=== PATIENT | female | born 1955 | race Caucasian/White ===

== ENCOUNTER 2023-04-01 16:45 | Observation (INO) | payer OTHER ==
[2023-04-01] MEDS ORDERED: LEVALBUTEROL 1.25 MG/3 ML NEB ONE (17:12)
[2023-04-01 17:27] LABS: Absolute Lymphocytes (CBC) 0.5 K/uL (0.7-4.9); Hematocrit 40.9 % (36.0-45.0); Lymphocytes % 4.5 % (15.3-44.8); MPV 9.3 fL (7.6-11.3); Platelets 202 thou/uL (152-406); RBC Red Blood Cell Count 4.49 M/uL (3.86-4.86)
[2023-04-01 17:36] LABS: Protime INR 1.06
[2023-04-01 17:47] LABS: Albumin 3.1 g/dL (3.4-5.0); Bilirubin Direct 0.3 mg/dL (0-0.2); Bilirubin Total 1.3 mg/dL (0.2-1.0); Potassium 2.9 mEq/L (3.5-5.1); Protein, Total 5.8 g/dL (6.4-8.2); Troponin High Sensitivity 6.4 pg/mL (<58.9)
[2023-04-01 17:49] LABS: Blood Morphology Comment NOT SEEN (NOT SEEN); Platelet Estimate ADEQ; White Blood Cell Scan OK (OK)
--- NOTE | 2023-04-01 17:49 | RAD REPORT ---
EXAM DESCRIPTION: RAD - Chest Pa And Lat (2 Views) - 04/01/2023 5:42 pm CLINICAL HISTORY: Chest pain;COPD;Cough Chest pain. COMPARISON: CHEST SINGLE VIEW dated 11/25/2014; CHEST SINGLE VIEW dated 11/21/2014 TECHNIQUE: PA and lateral views of the chest were obtained. FINDINGS: The lungs are hyperexpanded compatible with COPD. The heart is upper limit of normal in si ze. No fracture or aggressive bony process. IMPRESSION: COPD without acute process identified. The USPSTF recommends annual screening for lung cancer with low-dose CT (LDCT) in adults aged 50 to 8 0 years who have a 20 pack-year smoking history and currently smoke or have quit within the past 15 y ears.
[2023-04-01] MEDS ORDERED: POTASSIUM 25 MEQ EFFERV TAB ONE (17:54)
[2023-04-01] MEDS ORDERED: METHYLPREDNISOLONE 125 MG INJ ONE (17:54)
[2023-04-01] MEDS ORDERED: NA CHLORIDE 0.9% 1,000 ML ONE (17:55)
[2023-04-01] MEDS ORDERED: MAGNESIUM SULFATE 1 gm IVPB 1 GM/100 ML BAG IV ONE (17:55)
[2023-04-01] MEDS ORDERED: KCL 20 MEQ/100 mL IVPB 100 ML IV ONE (17:55)
[2023-04-01 18:04] LABS: SARS-COV-2 RT PCR NEGATIVE (NEGATIVE)
--- NOTE | 2023-04-01 18:33 | RAD REPORT ---
EXAM DESCRIPTION: CT - Thorax Wo Con CLINICAL HISTORY: Chest pain r/o PNA;COPD COMPARISON: <Comparisons> FINDINGS: The lungs are emphysematous. No pulmonary nodule, mass or infiltrate. No pleural thickenin g or pleural effusion. No pneumothorax. No axillary, mediastinal or hilar adenopathy. No concerning bony finding. Cholecystectomy clips. All CT scans are performed using dose optimization technique as appropriate and may include automated exposure control or mA/KV adjustment according to patient size. IMPRESSION: Mild COPD.
--- NOTE | 2023-04-01 18:40 | ER ---
Nurse's Notes [facility] Name: Gisell Man Age: 67 yrs Sex: Female : 1955 Arrival Date: 04/01/2023 Time: 16:45 Bed 13 Private MD: Diagnosis: COPD/ Chronic obstructive pulmonary disease with (acute) exacerbation;Hypokalemia;Hypo-osmolality and hyponatremia Presentation: 04/01 16:49 Chief complaint: EMS states: "toned out for pain between shoulder blades. Gave 1 g of mb9 Ofirmev via 22 g to left FA.". Coronavirus screen: Vaccine status: Patient reports being unvaccinated. Ebola Screen: No symptoms or risks identified at this time. Initial Sepsis Screen: Does the patient meet any 2 criteria? No. Patient's initial sepsis screen is negative. Does the patient have a suspected source of infection? No. Patient's initial sepsis screen is negative. Risk Assessment: Do you want to hurt yourself or someone else? Patient reports no desire to harm self or others. Onset of symptoms was April 01, 2023. 16:49 Method Of Arrival: EMS: [facility] mb9 16:49 Acuity: TOMMY 3 mb9 Triage Assessment: 16:52 General: Appears in no apparent distress. Behavior is cooperative. Pain: Complains of mb9 pain in back. EENT: No signs and/or symptoms were reported regarding the EENT system. Neuro: Hall Agitation-Sedation Scale (RASS): 0 - Alert and Calm Level of Consciousness is awake, alert, obeys commands, Oriented to person, place, time, situation, Appropriate for age. Cardiovascular: Patient's skin is warm and dry. Respiratory: Airway is patent Respiratory effort is even, unlabored, Respiratory pattern is regular, symmetrical, Breath sounds with wheezes bilaterally. GI: Abdomen is flat, non-distended, Bowel sounds present X 4 quads. : No signs and/or symptoms were reported regarding the genitourinary system. Derm: Skin is pink, warm \\T\\ dry. Musculoskeletal: Range of motion: intact in all extremities. Historical: - Allergies: 16:48 Codeine; mb9 16:48 Iodine; mb9 16:48 Albuterol; mb9 - Home Meds: 17:05 prednisone 10 mg Oral tablet 3 times per day [Active]; [place] Thyroid 60 mg Oral tablet sb4 daily [Active]; - PMHx: 17:04 Chronic obstructive lung disease; Hypothyroidism; sb4 17:25 bilateral breast cancer; Endometriosis of vagina; mb9 - PSHx: 17:25 Cholecystectomy; Tonsillectomy; mb9 - Immunization history:: Adult Immunizations up to date. - Social history:: Smoking status: Patient/guardian denies using tobacco. Screenin:51 [facility] ED Fall Risk Assessment (Adult) History of falling in the last 3 months, mb9 including since admission No falls in past 3 months (0 pts) Confusion or Disorientation No (0 pts) Intoxicated or Sedated No (0 pts) Impaired Gait No (0 pts) Mobility Assist Device Used No (0 pt) Altered Elimination No (0 pt) Score/Fall Risk Level 0 - 2 = Low Risk Oriented to surroundings, Maintained a safe environment, Educated pt \\T\\ family on fall prevention, incl call for assistance when getting out of bed. Abuse screen: Denies threats or abuse. Nutritional screening: No deficits noted. Tuberculosis screening: No symptoms or risk factors identified. Assessment: 17:24 Reassessment: see triage assessment. mb9 18:11 Reassessment: No changes from previously documented assessment. Patient and/or family mb9 updated on plan of care and expected duration. Pain level reassessed. Patient is alert, oriented x 3, equal unlabored respirations, skin warm/dry/pink. 19:13 Reassessment: Patient appears in no apparent distress at this time. No changes from km8 previously documented assessment. Patient and/or family updated on plan of care and expected duration. Pain level reassessed. Patient is alert, oriented x 3, equal unlabored respirations, skin warm/dry/pink. General: Appears in no apparent distress. comfortable, Behavior is calm, cooperative, appropriate for age. Neuro: Level of Consciousness is awake, alert, obeys commands, Oriented to person, place, time, situation. Cardiovascular: Capillary refill < 3 seconds Patient's skin is warm and dry. Respiratory: Airway is patent Respiratory effort is even, labored, Respiratory pattern is regular, symmetrical. 20:18 Reassessment: Patient appears in no apparent distress at this time. No changes from km8 previously documented assessment. Patient and/or family updated on plan of care and expected duration. Pain level reassessed. Patient is alert, oriented x 3, equal unlabored respirations, skin warm/dry/pink. 21:00 Reassessment: Patient appears in no apparent distress at this time. No changes from km8 previously documented assessment. Patient and/or family updated on plan of care and expected duration. Pain level reassessed. Patient is alert, oriented x 3, equal unlabored respirations, skin warm/dry/pink. Vital Signs: 16:49 BP 118 / 69; Pulse 84; Resp 18; Temp 99; Pulse Ox 97% on 2 lpm NC; Weight 45.36 kg; mb9 Height 4 ft. 11 in. ; 18:10 BP 101 / 68; Pulse 81; Resp 18; Pulse Ox 99% on 2 lpm NC; mb9 20:19 BP 102 / 52; Pulse 69; Resp 20; Pulse Ox 98% on 2 lpm NC; km8 21:00 BP 109 / 65; Pulse 68; Resp 18; Pulse Ox 97% on R/A; km8 16:49 Body Mass Index 20.20 (45.36 kg, 149.86 cm) mb9 ED Course: 16:46 Patient arrived in ED. sb4 16:46 Marichuy Granados PA-C is PHCP. sb4 16:46 Rivas Acosta MD is Attending Physician. sb4 16:48 Gisell Payne, ALLA is Primary Nurse. mb9 16:48 Arm band placed on. mb9 16:51 Triage completed. mb9 16:53 Placed in gown. Bed in low position. Call light in reach. Side rails up X 1. Client mb9 placed on continuous cardiac and pulse oximetry monitoring. NIBP monitoring applied. medical assistant per diem on. 17:24 COVID-19/FLU A+B/RSV Sent. mb9 17:25 No provider procedures requiring assistance completed. mb9 17:44 XRAY Chest Pa And Lat (2 Views) In Process Unspecified. EDMS 18:20 CT Chest Wo Con In Process Unspecified. EDMS 18:39 Vinay Albright MD is Hospitalizing Provider. sb4 18:46 Patient admitted, IV remains in place. mb9 19:14 Door closed. Noise minimized. Lights dimmed. Warm blanket given. Assisted to bathroom. km8 20:18 Provided Education on: admission process. km8 Administered Medications: 17:24 Drug: Levalbuterol Inhalation 1.25 mg Inhalation once Route: Inhalation; mb9 20:20 Follow up: Response: No adverse reaction 18:00 Drug: MethylPrednisoLONE IVP 125 mg IVP once Route: IVP; Site: left forearm; mb9 20:20 Follow up: Response: No adverse reaction 18:05 Drug: Magnesium Sulfate IVPB 1 grams IVPB once over 1 hrs Route: IVPB; Infused Over: 1 mb9 hrs; Site: left forearm; 20:15 Follow up: IV Status: Completed infusion; IV Intake: 100ml 18:05 Drug: NS 0.9% IV 1000 ml IV at 1 bolus Per protocol; 1000 mL bolus Route: IV; Rate: 1 mb9 bolus; Site: left forearm; 20:15 Follow up: IV Status: Completed infusion; IV Intake: 1000ml 18:08 Drug: Potassium PO Effervescent Tablet 50 mEq PO once; dissolve in 4 ounces of water or mb9 juice Route: PO; 20:20 Follow up: Response: No adverse reaction 18:10 Drug: Potassium Chloride IV 20 mEq IV at calculated rate once; administer over 1-2 mb9 hours Route: IV; Rate: calculated rate; Site: left forearm; 20:15 Follow up: IV Status: Completed infusion Medication: 16:53 VIS not applicable for this client. mb9 Intake: 20:15 IV: 1000ml; Total: 1000ml. 8 20:15 IV: 100ml; Total: 1100ml. km8 Outcome: 18:39 Decision to Hospitalize by Provider. sb4 21:23 Admitted to Med/surg accompanied by tech, via wheelchair, room 209, with oxygen, with 8 chart, Report called to ALLA Giordano 21:23 Condition: stable 21:23 Instructed on the need for admit, Demonstrated understanding of instructions, 21:53 Patient left the ED. km8 Signatures: Dispatcher [employer] EDMarichuy Montilla PA-C PA-C sb4 Gisell Payne RN RN mb9 Lynne Garsia RN RN km8 Corrections: (The following items were deleted from the chart) 17:09 16:52 Respiratory: Airway is patent Respiratory effort is even, unlabored, Respiratory mb9 pattern is regular, symmetrical, mb9 17:30 17:24 BASIC METABOLIC PANEL+C.LAB.BRZ drawn and sent. 9 EDMS 17:30 17:24 CBC+H.LAB.BRZ drawn and sent. 9 EDMS 17:30 17:24 MAGNESIUM+C.LAB.BRZ drawn and sent. 9 EDMS 17:30 17:24 PROBNP+C.LAB.BRZ drawn and sent. 9 EDMS 17:30 17:24 Troponin High Sensitivity+C.LAB.BRZ drawn and sent. [facility] EDMS 21:53 21:23 Admitted to Med/surg accompanied by tech, via wheelchair, room 209, with oxygen, km8 with chart, Report called to ALLA Dyer km8
--- NOTE | 2023-04-01 18:41 | EDPHYS ---
Physician Documentation [facility] Name: Gisell Man Age: 67 yrs Sex: Female : 1955 Arrival Date: 04/01/2023 Time: 16:45 Bed 13 Private MD: ED Physician Rivas Acosta HPI: 04/01 16:57 This 67 yrs old Female presents to ER via EMS with complaints of wheezing, back pain. sb4 16:57 patient states that she started feeling a little short of breath yesterday and sb4 coughing. she went to [place] ED last night, had negative blood work, no xray done per patient, and was discharged home. home health nurse thought her wheezing was worse today so called EMS. patient denies any increased O2 requirement, reports compliance with nebulizers/daily steroids. Historical: - Allergies: 16:48 Codeine; mb9 16:48 Iodine; mb9 16:48 Albuterol; mb9 - Home Meds: 17:05 prednisone 10 mg Oral tablet 3 times per day [Active]; [place] Thyroid 60 mg Oral tablet sb4 daily [Active]; - PMHx: 17:04 Chronic obstructive lung disease; Hypothyroidism; sb4 17:25 bilateral breast cancer; Endometriosis of vagina; mb9 - PSHx: 17:25 Cholecystectomy; Tonsillectomy; mb9 - Immunization history:: Adult Immunizations up to date. - Social history:: Smoking status: Patient/guardian denies using tobacco. ROS: 16:57 Constitutional: Positive for fever, sb4 16:57 Respiratory: Positive for cough, shortness of breath, wheezing, 16:57 Back: Positive for pain at rest, 18:39 Cardiovascular: Negative for chest pain, palpitations, and edema, sb4 Exam: 16:57 Constitutional: This is a well developed, well nourished patient who is awake, alert, sb4 and in no acute distress. Head/Face: Normocephalic, atraumatic. Eyes: Extra-ocular motions intact. Periorbital areas with no swelling, redness, or edema. ENT: Mucous membranes moist. Cardiovascular: Regular rate and rhythm with a normal S1 and S2. Abdomen/GI: Soft, non-tender, no distension. Skin: Warm, dry with normal turgor. Normal color with no rashes, no lesions, and no evidence of cellulitis. MS/ Extremity: Pulses equal, no cyanosis. Neurovascular intact. Full, normal range of motion. Neuro: Awake and alert, GCS 15, oriented to person, place, time, and situation. Motor strength 5/5 in all extremities. Sensory grossly intact. 16:57 Respiratory: the patient does not display signs of respiratory distress, Respirations: normal, no acute changes, Breath sounds: wheezing: expiratory is scattered, 17:07 Special observations: no evidence of discomfort, talking on the phone, sb4 Vital Signs: 16:49 BP 118 / 69; Pulse 84; Resp 18; Temp 99; Pulse Ox 97% on 2 lpm NC; Weight 45.36 kg; mb9 Height 4 ft. 11 in. ; 18:10 BP 101 / 68; Pulse 81; Resp 18; Pulse Ox 99% on 2 lpm NC; mb9 20:19 BP 102 / 52; Pulse 69; Resp 20; Pulse Ox 98% on 2 lpm NC; km8 21:00 BP 109 / 65; Pulse 68; Resp 18; Pulse Ox 97% on R/A; km8 16:49 Body Mass Index 20.20 (45.36 kg, 149.86 cm) mb9 MDM: 16:57 Patient medically screened. sb4 16:57 Differential diagnosis: COPD exacerbation, asthma exacerbation, pneumonia, covid, flu, sb4 bronchitis. 18:38 Data reviewed: vital signs, nurses notes, EMS record, lab test result(s), radiologic sb4 studies, and as a result, I will admit patient. Consideration of Admission/Observation Patient was admitted/placed on observation. Management of patient was discussed with the following: Hospitalist: dr. albright. Counseling: I had a detailed discussion with the patient and/or guardian regarding the historical points, exam findings, and any diagnostic results supporting the discharge/admit diagnosis, lab results, radiology results, the need for further work-up and treatment in the hospital. 04/01 16:47 Order name: Basic Metabolic Panel; Complete Time: 17:49 sb4 04/01 16:47 Order name: CBC with Diff; Complete Time: 17:49 sb4 04/01 16:47 Order name: LFT's; Complete Time: 17:49 sb4 04/01 16:47 Order name: Magnesium; Complete Time: 17:49 sb4 04/01 16:47 Order name: NT PRO-BNP; Complete Time: 17:49 sb4 04/01 16:47 Order name: PT-INR; Complete Time: 17:37 sb4 04/01 16:47 Order name: Troponin HS; Complete Time: 17:49 sb4 04/01 16:56 Order name: COVID-19/FLU A+B/RSV; Complete Time: 18:06 sb4 04/01 17:31 Order name: CBC Smear Scan; Complete Time: 17:49 EDMS 04/01 20:10 Order name: Basic Metabolic Panel EDMS 04/01 20:10 Order name: Basic Metabolic Panel EDMS 04/01 16:56 Order name: XRAY Chest Pa And Lat (2 Views); Complete Time: 17:50 sb4 04/01 17:51 Order name: CT Chest Wo Con; Complete Time: 18:34 sb4 04/01 16:47 Order name: EKG; Complete Time: 16:47 sb4 04/01 16:47 Order name: O2 Sat Monitoring; Complete Time: 16:47 sb4 04/01 16:56 Order name: Cardiac monitoring; Complete Time: 17:06 sb4 04/01 16:56 Order name: IV Saline Lock; Complete Time: 17:10 sb4 04/01 16:56 Order name: Labs collected and sent; Complete Time: 17:10 sb4 04/01 16:56 Order name: O2 Per Protocol; Complete Time: 17:06 sb4 04/01 16:56 Order name: O2 Sat Monitoring; Complete Time: 17:06 sb4 Administered Medications: 17:24 Drug: Levalbuterol Inhalation 1.25 mg Inhalation once Route: Inhalation; mb9 20:20 Follow up: Response: No adverse reaction 18:00 Drug: MethylPrednisoLONE IVP 125 mg IVP once Route: IVP; Site: left forearm; mb9 20:20 Follow up: Response: No adverse reaction 18:05 Drug: Magnesium Sulfate IVPB 1 grams IVPB once over 1 hrs Route: IVPB; Infused Over: 1 mb9 hrs; Site: left forearm; 20:15 Follow up: IV Status: Completed infusion; IV Intake: 100ml 18:05 Drug: NS 0.9% IV 1000 ml IV at 1 bolus Per protocol; 1000 mL bolus Route: IV; Rate: 1 mb9 bolus; Site: left forearm; 20:15 Follow up: IV Status: Completed infusion; IV Intake: 1000ml 8 18:08 Drug: Potassium PO Effervescent Tablet 50 mEq PO once; dissolve in 4 ounces of water or mb9 juice Route: PO; 20:20 Follow up: Response: No adverse reaction 18:10 Drug: Potassium Chloride IV 20 mEq IV at calculated rate once; administer over 1-2 mb9 hours Route: IV; Rate: calculated rate; Site: left forearm; 20:15 Follow up: IV Status: Completed infusion 8 Disposition Summary: 04/01/23 18:39 Hospitalization Ordered Notes: Hospitalization Status: Inpatient Admission sb4 Provider: Vinay Albright sb4 Location: Telemetry/MedSurg (Inpatient) sb4 Condition: Fair sb4 Problem: an acute exacerbation sb4 Symptoms: are unchanged sb4 Bed/Room Type: Standard sb4 Room Assignment: 209(04/01/23 20:27) as6 Diagnosis - COPD/ Chronic obstructive pulmonary disease with (acute) exacerbation sb4 - Hypokalemia sb4 - Hypo-osmolality and hyponatremia sb4 Forms: - Medication Reconciliation Form sb4 - SBAR form sb4 - Leadership Thank You Letter sb4 Signatures: Dispatcher [employer] Kadeem Ordonez RN RN as6 Marichuy Granados PA-C PA-C sb4 Gisell Payne RN RN mb9 Lynne Garsia RN km8 Corrections: (The following items were deleted from the chart) 16:47 16:47 Cardiac monitoring ordered. sb4 sb4 16:47 16:47 IV Saline Lock ordered. sb4 sb4 16:47 16:47 Oxygen Per Protocol ordered. sb4 sb4 16:48 16:47 EKG - Nurse/Tech ordered. sb4 sb4 16:48 16:47 Labs collected and sent ordered. sb4 sb4 17:30 16:57 BASIC METABOLIC PANEL+C.LAB.BRZ ordered. EDMS EDMS 17:30 16:57 CBC+H.LAB.BRZ ordered. EDMS EDMS 17:30 16:57 MAGNESIUM+C.LAB.BRZ ordered. EDMS EDMS 17:30 16:57 PROBNP+C.LAB.BRZ ordered. EDMS EDMS 17:30 16:57 Troponin High Sensitivity+C.LAB.BRZ ordered. EDMS EDMS 17:43 16:47 Chest Single View+RAD.RAD.BRZ ordered. EDMS EDMS 20:27 18:39 sb4 as6
[2023-04-01] MEDS ORDERED: ACETAMINOPHEN 325 MG TABLET PO PRN (20:05)
[2023-04-01] MEDS ORDERED: ONDANSETRON 4 MG/2 ML VIAL IV PRN (20:05)
--- NOTE | 2023-04-01 20:09 | P.HP ---
Certification for Inpatient Patient admitted to: Observation With expected LOS: <2 Midnights Practitioner: I am a practitioner with admitting privileges, knowledge of patient current condition, hospital course, and medical plan of care. Services: Services provided to patient in accordance with Admission requirements found in Title 42 Section 412.3 of the Code of Federal Regulations Patient History Date of Service: 04/02/23 Reason for admission: COPD exacerbation, Hyponatremia History of Present Illness: 67-year-old female patient with medical history significant for hypertension, COPD, hyperlipidemia, hypothyroidism and history of breast carcinoma was evaluated for episode of worsening shortness of breath and cough. She has COPD and has had an exacerbation perhaps secondary to recent inclement weather. She was found to have low sodium of 129 on routine lab in the ED and she was started on breathing treatments and was admitted for inpatient care. No reports of productive cough, fever, chills. Imaging study done revealed no acute intrathoracic pathology. Allergies Iodinated Contrast Media [Iodinated Contrast Media - IV Dye] Allergy (Severe, Verified 04/01/23 22:09) Anaphylaxis iodine Allergy (Severe, Verified 04/01/23 22:20) Anaphylaxis adhesive tape Allergy (Verified 04/01/23 22:19) Itching codeine Allergy (Verified 04/01/23 22:09) Nausea/Vomiting albuterol Adverse Reaction (Verified 04/01/23 22:09) jittery Home Medications: Budesonide [Pulmicort] 0.5 mg IH DAILY 04/02/23 Thyroid,Pork [[place] Thyroid] 60 mg PO DAILY 04/02/23 clonazePAM [Clonazepam] 1 mg PO BEDTIME 04/02/23 predniSONE [Deltasone*] 10 mg PO TID 04/02/23 - Past Medical/Surgical History Diabetic: No -: Breast Ca -: Left Mast -: Right Mast -: Tara -: Tonsillectomy -: Thyroidectomy - Social History Alcohol use: No CD- Drugs: No Caffeine use: Yes Review of Systems General: Malaise Eyes: Unremarkable ENT: Unremarkable Respiratory: Cough, Shortness of Breath Cardiovascular: Unremarkable Gastrointestinal: Unremarkable Genitourinary: Unremarkable Musculoskeletal: Unremarkable Integumentary: Unremarkable Neurological: Unremarkable Physical Examination - Physical Exam General: Alert HEENT: Atraumatic, Normocephalic Neck: Supple Respiratory: Diminished Cardiovascular: Regular rate/rhythm, Normal S1 S2 Gastrointestinal: Soft and benign Musculoskeletal: No swelling Neurological: Normal speech - Studies Laboratory Data (last 24 hrs) 04/01/23 04/01/23 04/01/23 17:13 17:13 17:13 WBC 11.40 H Hgb 14.0 Hct 40.9 Plt Count 202 PT 11.6 INR 1.06 Sodium 129 L Potassium 2.9 L BUN 10 Creatinine 0.77 Glucose 131 H Magnesium 2.0 Total Bilirubin 1.3 H AST 19 ALT 26 Alkaline Phosphatase 59 04/01/23 04/01/23 16:56 16:56 WBC Cancelled Hgb Cancelled Hct Cancelled Plt Count Cancelled PT INR Sodium Cancelled Potassium Cancelled BUN Cancelled Creatinine Cancelled Glucose Cancelled Magnesium Cancelled Total Bilirubin AST ALT Alkaline Phosphatase Assessment and Plan - Plan COPD exacerbation: Deemed secondary to inclement weather related issue. Breathing treatment with albuterol and Atrovent started. Will continue home medication of budesonide. Will have patient continue on steroid therapy. Will monitor symptomatology closely Hyponatremia: Borderline moderately low at 129. Will continue IV normal saline for repletion and follow trends. Will obtain TSH to evaluate for adequacy of thyroid replacement therapy Hypothyroidism: Continue thyroid replacement therapy dose as prescribed outpatient. Hypertension: Monitor vital signs per unit protocol and continue antihypertensive medications as prescribed outpatient Prophylaxis: Lovenox for DVT prophylaxis CODE STATUS: Full code. Disposition: We will treat patient COPD exacerbation and she will be discharged when she is deemed clinically stable. - Advance Directives Does patient have a Living Will: No Does patient have a Durable POA for Healthcare: No
[2023-04-01] MEDS: NA CHLORIDE 0.9% 1,000 ML IV SCH (22:26)
[2023-04-01 22:27] VITALS: BMI 18.3
[2023-04-02] MEDS ORDERED: ALBUTEROL 2.5 MG/3 ML NEB SOL NEB SCH (01:00)
[2023-04-02] MEDS: ALBUTEROL 2.5 MG/3 ML NEB SOL NEB SCH ×4 (02:25→19:00)
[2023-04-02] MEDS: IPRATROPIUM BROM 0.5MG/2.5ML NEB SCH ×4 (02:25→20:04)
[2023-04-02 05:49] LABS: Potassium 4.5 mEq/L (3.5-5.1)
[2023-04-02] MEDS: METHYLPREDNISOLONE 40 MG INJ IV SCH (08:28)
[2023-04-02] MEDS: THYROID 30 MG TAB PO SCH (08:29)
[2023-04-02] MEDS: ENOXAPARIN 40 MG/0.4 ML SQ SCH (08:29)
[2023-04-02] MEDS ORDERED: BUDESONIDE 0.5 MG/2 ML NEB IH SCH ×2 (09:00→20:00)
[2023-04-02] MEDS: NA CHLORIDE 0.9% 1,000 ML IV SCH (12:19)
[2023-04-02] MEDS ORDERED: LEVALBUTEROL 1.25 MG/3 ML NEB ONE (19:56)
[2023-04-02] MEDS ORDERED: BUDESONIDE 0.5 MG/2 ML NEB NEB SCH ×2 (20:00)
[2023-04-02] MEDS: LEVALBUTEROL 1.25 MG/3 ML NEB NEB SCH (20:05)
[2023-04-02] MEDS ORDERED: clonazePAM 1 MG TAB PO SCH (21:00)
[2023-04-03] MEDS: NA CHLORIDE 0.9% 1,000 ML IV SCH ×2 (00:30→13:00)
[2023-04-03] MEDS ORDERED: LEVALBUTEROL 1.25 MG/3 ML NEB NEB SCH (01:00)
[2023-04-03] MEDS ORDERED: LEVALBUTEROL 1.25 MG/3 ML NEB ONE (01:09)
[2023-04-03] MEDS: IPRATROPIUM BROM 0.5MG/2.5ML NEB SCH ×3 (01:35→13:00)
[2023-04-03] MEDS: LEVALBUTEROL 1.25 MG/3 ML NEB NEB SCH ×4 (01:37→16:30)
[2023-04-03] MEDS ORDERED: BUDESONIDE 0.5 MG/2 ML NEB NEB SCH (08:00)
[2023-04-03] MEDS: THYROID 30 MG TAB PO SCH ×2 (08:04→08:11)
[2023-04-03] MEDS: ENOXAPARIN 40 MG/0.4 ML SQ SCH (08:05)
[2023-04-03] MEDS: METHYLPREDNISOLONE 40 MG INJ IV SCH (08:05)
--- NOTE | 2023-04-03 15:37 | P.PN ---
Subjective Date of Service: 04/02/23 Subjective: No new changes, No C/O voiced, Improving Review of Systems 10-point ROS is otherwise unremarkable Physical Examination - Vital Signs Temperature: 98.7 F Blood Pressure: 138/65 Pulse: 85 Respirations: 16 Pulse Ox (%): 94 - Physical Exam General: Alert, In no apparent distress, Oriented x3 HEENT: Atraumatic, PERRLA, EOMI Neck: Supple, JVD not distended Respiratory: Clear to auscultation bilaterally, Normal air movement Cardiovascular: Regular rate/rhythm, Normal S1 S2 Gastrointestinal: Normal bowel sounds, No tenderness Musculoskeletal: No tenderness Integumentary: No rashes Neurological: Normal speech, Normal tone, Normal affect Lymphatics: No axilla or inguinal lymphadenopathy - Studies Medications List Reviewed: Yes Assessment & Plan - Problems (Diagnosis) (1) Dyspnea Onset Date: 11/23/14 Current Visit: No Status: Acute (2) COPD with acute exacerbation Current Visit: Yes Status: Acute - Plan Plan: 1. Continue with levalbuterol and Budenoside nebs 2. Continue with IV steroids 3. Outpatient pulmonary function testing 4. Pulmonary follow-up if symptoms do not improve 5. Room air O2 sats 6. Repeat chest x-ray in the morning 7. GI and DVT prophylaxis Discharge Plan: Home Plan to discharge in: Greater than 2 days - Advance Directives Does patient have a Living Will: No Does patient have a Durable POA for Healthcare: No - Code Status/Comfort Care Code Status Assessed: Yes Code Status: Full Code Critical Care: No Time Spent Managing PTS Care (In Minutes): 35
--- NOTE | 2023-04-03 15:43 | P.DS ---
Reason for Admission: COPD exacerbation, Hyponatremia - Problems (1) Dyspnea Onset Date: 11/23/14 Current Visit: No Status: Acute (2) COPD with acute exacerbation Current Visit: Yes Status: Acute Vital Signs/Physical Exam: Temp Pulse Resp BP Pulse Ox 98.7 F 85 16 138/65 94 04/03/23 15:37 04/03/23 15:37 04/03/23 15:37 04/03/23 15:37 04/03/23 15:37 Laboratory Data at Discharge: WBC 11.40 thou/uL (4.3-10.9) H 04/01/23 17:13 Hgb 14.0 g/dL (12.0-15.0) 04/01/23 17:13 Hct 40.9 % (36.0-45.0) 04/01/23 17:13 Plt Count 202 thou/uL (152-406) 04/01/23 17:13 PT 11.6 SECONDS (9.5-12.5) 04/01/23 17:13 INR 1.06 04/01/23 17:13 Sodium 133 mEq/L (136-145) L D 04/02/23 05:04 Potassium 4.5 mEq/L (3.5-5.1) D 04/02/23 05:04 BUN 6 mg/dL (7-18) L 04/02/23 05:04 Creatinine 0.61 mg/dL (0.55-1.02) 04/02/23 05:04 Glucose 149 mg/dL (74-106) H 04/02/23 05:04 Magnesium 2.0 mg/dL (1.6-2.4) 04/01/23 17:13 Total Bilirubin 1.3 mg/dL (0.2-1.0) H 04/01/23 17:13 AST 19 U/L (15-37) 04/01/23 17:13 ALT 26 U/L (13-56) 04/01/23 17:13 Alkaline Phosphatase 59 U/L (45-117) 04/01/23 17:13 Home Medications: Budesonide [Pulmicort] 0.5 mg IH DAILY 04/02/23 Levalbuterol [Xopenex*] 1.25 mg NEB TID 04/02/23 Thyroid,Pork [[place] Thyroid] 60 mg PO DAILY 04/02/23 clonazePAM [Clonazepam] 1 mg PO BEDTIME 04/02/23 predniSONE [Deltasone*] 10 mg PO TID 04/02/23 Followup: Thomas Tamayo MD [Primary Care Provider] -
[2023-04-03 16:33] VITALS: BP 139/63; TEMP 97.9
[2023-04-03 17:35] VITALS: O2SAT 97
== END 2023-04-03 17:27 | disposition home or self-care (01) ==
LOC: ER 16:45 → ERHOLD 20:34 → 2ND 21:02
PROVIDERS: ADMIT Internal Medicine Nephrology; ATTEND Hospitalist
DX: J44.1 Chronic obstructive pulmonary disease with (acute) exacerbation (principal); E87.1 Hypo-osmolality and hyponatremia; I10 Essential (primary) hypertension; E78.5 Hyperlipidemia, unspecified; E03.9 Hypothyroidism, unspecified; Z85.3 Personal history of malignant neoplasm of breast; Z88.5 Allergy status to narcotic agent; Z88.8 Allergy status to other drugs, medicaments and biological substances; Z11.52 Encounter for screening for COVID-19
CPT/HCPCS: 96365; 85025; 80048 ×2; 36415; 83735; 85610; 80076; 84484; 83880; 0241U; 71250; 71046; 94640; 96375; 99285; J3480; J3475; J7614 ×5; J7613 ×2; J7644 ×5; J7626; J2930; J7030 ×5; J2920 ×2; G0378; J1650

== ENCOUNTER → 2023-05-15 | Emergency (ER) | payer OTHER ==
[~2023-05-15] MED LIST: POTASSIUM CL SA 10 MEQ TAB PO ONE
--- NOTE | 2023-05-15 22:33 | RAD REPORT ---
EXAM DESCRIPTION: RAD - Chest Single View - 05/15/2023 10:26 pm CLINICAL HISTORY: CHEST PAIN Chest pain. COMPARISON: Chest Pa And Lat (2 Views) dated 04/01/2023; CHEST SINGLE VIEW dated 11/25/2014; CHEST SIN GLE VIEW dated 11/21/2014 FINDINGS: Portable technique limits examination quality. The lungs are significantly emphysematous but grossly clear. The heart is normal in size. No displace d fractures. IMPRESSION: Prominent COPD.
[2023-05-15 23:08] LABS: Absolute Lymphocytes (CBC) 1.8 K/uL (0.7-4.9); Hematocrit 36.7 % (36.0-45.0); Lymphocytes % 18.8 % (15.3-44.8); MPV 11.4 fL (7.6-11.3); Platelets 204 thou/uL (152-406); RBC Red Blood Cell Count 4.12 M/uL (3.86-4.86)
[2023-05-15 23:14] LABS: Protime INR 1.13
[2023-05-15 23:27] LABS: Albumin 3.4 g/dL (3.4-5.0); Bilirubin Direct 0.3 mg/dL (0-0.2); Bilirubin Indirect, Calculated 0.5 mg/dL (0.2-0.8); Bilirubin Total 0.8 mg/dL (0.2-1.0); Magnesium 1.9 mg/dL (1.6-2.4); Protein, Total 7.1 g/dL (6.4-8.2); Troponin High Sensitivity 25.6 pg/mL (<58.9)
--- NOTE | 2023-05-16 03:47 | EDPHYS ---
Physician Documentation [facility] Name: Gisell Man Age: 67 yrs Sex: Female : 1955 Arrival Date: 05/15/2023 Time: 21:37 Bed 15 Private MD: ED Physician Chivo Contreras HPI: 05/15 22:56 This 67 yrs old Female presents to ER via Unassigned with complaints of Chest pain. kb 22:56 Patient is a 67-year-old female who presents for chest pain that started this morning. kb Reports pain has been constant pressure with intermittent sharp pains. Reports this evening she started having some shortness of breath as well so she called 911 to bring her in for evaluation. EMS gave 1 sublingual tablet of nitro in route and symptoms resolved. Patient states she feels great now and like to go home. Patient reports that she was admitted to [facility] in [place] at the beginning of the month and was just discharged 2 days ago. States she had gone in for chest pain and after evaluation was told it was due to COPD. States the ran a lot of tests on her heart and told her she did not have a heart attack.. Historical: - Allergies: 21:36 Albuterol; as9 21:36 Codeine; as9 21:36 Iodine; as9 - PMHx: 21:36 bilateral breast cancer; Chronic obstructive lung disease; Endometriosis of vagina; as9 Hypothyroidism; - PSHx: 21:36 Cholecystectomy; Tonsillectomy; as9 - Immunization history:: Client reports receiving the 2nd dose of the Covid vaccine, Pneumococcal vaccine is up to date, Flu vaccine is up to date. - Social history:: Smoking status: Patient denies any tobacco usage or history of. Patient/guardian denies using alcohol, street drugs. ROS: 22:58 Constitutional: Negative for fever, chills, and weight loss, kb 22:58 Cardiovascular: Positive for chest pain, 22:58 Respiratory: Positive for shortness of breath, 22:58 All other systems are negative, Exam: 22:58 Constitutional: This is a well developed, well nourished patient who is awake, alert, kb and in no acute distress. Head/Face: Normocephalic, atraumatic. ENT: Moist Mucous membranes Chest/axilla: Normal chest wall appearance and motion. Cardiovascular: Regular rate Respiratory: Respirations even and unlabored. No increased work of breathing. Talking in full sentences Abdomen/GI: Soft, non-tender. No distention Skin: Warm, dry with normal turgor. Normal color. MS/ Extremity: Pulses equal, no cyanosis. Neurovascular intact. Full, normal range of motion. Neuro: Awake and alert, GCS 15, oriented to person, place, time, and situation. Moves all extremities. Normal gait. 03:35 ECG was reviewed by the Attending Physician. Patient's EKG 2204 reveals normal sinus sp4 rhythm with a rate of 79 with left axis deviation but otherwise normal. Vital Signs: 05/15 21:36 BP 126 / 60; Pulse 84; Resp 20; Temp 98.7; Pulse Ox 100% on 2.5 lpm NC; Weight 40.82 as9 kg; Height 5 ft. 0 in. ; 22:00 BP 115 / 83; Pulse 84; Resp 20; Temp 98.7; Pulse Ox 100% on 2.5 lpm NC; 22:30 BP 121 / 61; Pulse 82; Resp 20; Pulse Ox 100% on 2.5 lpm NC; 22:48 BP 131 / 58; Pulse 78; Resp 20; Pulse Ox 100% on 2.5 lpm NC; 23:00 BP 150 / 67; Pulse 78; Resp 20; Pulse Ox 100% on 2.5 lpm NC; 00:15 BP 122 / 60; Pulse 77; Resp 20; Pulse Ox 99% on 2.5 lpm NC; 01:00 BP 119 / 58; Pulse 74; Resp 19; Pulse Ox 100% on 2.5 lpm NC; 02:00 BP 122 / 54; Pulse 74; Resp 20; Pulse Ox 100% on 2.5 lpm NC; 03:00 BP 126 / 67; Pulse 80; Resp 19; Pulse Ox 99% on 2.5 lpm NC; 04:00 BP 127 / 65; Pulse 82; Resp 20; Temp 98.7; Pulse Ox 99% on 2.5 lpm NC; 05/15 21:36 Body Mass Index 17.58 (40.82 kg, 152.4 cm) MDM: 05/15 21:51 Patient medically screened. kb 22:59 Differential diagnosis: abnormal EKG, acute myocardial infarction, anxiety, coronary kb artery disease. The patient was not given aspirin in the Emergency Department. Administered by EMS. Data reviewed: vital signs, nurses notes. Historians other than the Patient: EMS: [facility]. 00:11 Transition of care: After a detail discussion of the patient's case, care is kb transferred to Chivo Contreras MD. ED course: will repeat troponin at 0200. Dr Contreras to take over pt's care and follow up on repeat troponin. 03:34 Differential Diagnosis altered mental status, sepsis, flu. Consideration of sp4 Admission/Observation Escalation of care including admission/observation considered. ED course: EXAM DESCRIPTION: RAD - Chest Single View - 05/15/2023 10:26 pm CLINICAL HISTORY: CHEST PAIN Chest pain. COMPARISON: Chest Pa And Lat (2 Views) dated 04/01/2023; CHEST SINGLE VIEW dated 11/25/2014; CHEST SINGLE VIEW dated 11/21/2014 FINDINGS: Portable technique limits examination quality. The lungs are significantly emphysematous but grossly clear. The heart is normal in size. No displaced fractures. IMPRESSION: Prominent COPD.. 03:35 ED course: EXAM DESCRIPTION: CT - Thorax Wo Con Old record review 04/01/23 1833 sp4 CLINICAL HISTORY: Chest pain r/o PNA;COPD COMPARISON: FINDINGS: The lungs are emphysematous. No pulmonary nodule, mass or infiltrate. No pleural thickening or pleural effusion. No pneumothorax. No axillary, mediastinal or hilar adenopathy. No concerning bony finding. Cholecystectomy clips. All CT scans are performed using dose optimization technique as appropriate and may include automated exposure control or mA/KV adjustment according to patient size. IMPRESSION: Mild COPD. . 05/15 22:02 Order name: Basic Metabolic Panel; Complete Time: 23:28 kb 05/15 22:02 Order name: CBC with Diff; Complete Time: 23:16 kb 05/15 22:02 Order name: LFT's; Complete Time: 23:28 kb 05/15 22:02 Order name: Magnesium; Complete Time: 23:28 kb 05/15 22:02 Order name: NT PRO-BNP; Complete Time: 23:28 kb 05/15 22:02 Order name: PT-INR; Complete Time: 23:16 kb 05/15 22:02 Order name: Troponin HS; Complete Time: 23:28 kb 02:10 Order name: Troponin High Sensitivity sp4 03:13 Order name: Troponin High Sensitivity; Complete Time: 03:32 EDMS 05/15 22:02 Order name: XRAY Chest (1 view); Complete Time: 22:35 kb 05/15 22:02 Order name: EKG; Complete Time: 22:02 kb 05/15 22:02 Order name: Cardiac monitoring; Complete Time: 22:19 kb 05/15 22:02 Order name: EKG - Nurse/Tech; Complete Time: 22:19 kb 05/15 22:02 Order name: IV Saline Lock; Complete Time: 22:58 kb 05/15 22:02 Order name: Labs collected and sent; Complete Time: 22:58 kb 05/15 22:02 Order name: O2 Per Protocol; Complete Time: 22:19 kb 05/15 22:02 Order name: O2 Sat Monitoring; Complete Time: 22:19 kb EC:35 Rate is 79 beats/min. Rhythm is regular, Normal Sinus Rhythm. Left axis deviation sp4 noted. ND interval is normal. QRS interval is normal. QT interval is normal. No Q waves. T waves are Normal. No ST changes noted. Clinical impression: No evidence of ischemia. Interpreted by me. Reviewed by me. Administered Medications: 00:13 Drug: Potassium Chloride PO 40 mEq PO once Route: PO; as9 04:09 Follow up: Response: No adverse reaction as9 Disposition: 03:09 Co-signature as Attending Physician, Chivo Contreras MD I agree with the assessment sp4 and plan of care. I reviewed the patient's care provided by Advanced Practice Provider \T\ agree w/ the diagnosis \T\ care plan. I personally saw the pt \T\ performed a substantive portion of the visit, incldng all aspects of the (History/Exam/Medical Decision Making). Disposition Summary: 05/16/23 03:47 Discharge Ordered Problem: new sp4 Symptoms: have improved sp4 Condition: Stable sp4 Diagnosis - Chest pain, unspecified sp4 - Non cardiac chest pain sp4 Followup: sp4 - With: Trevor Sarmiento MD - When: 7 - 10 days - Reason: Recheck today's complaints Discharge Instructions: - Discharge Summary Sheet sp4 - Nonspecific Chest Pain, Adult, [id number] sp4 Forms: - Patient Portal Instructions sp4 Signatures: Dispatcher [employer] EDMS Deborah Champagne, FUEL HANDLER-C Chivo Bernal MD MD sp4 Parrish Lauren RN RN as9 Corrections: (The following items were deleted from the chart) 03:46 03:35 ED course: EXAM DESCRIPTION: CT - Thorax Wo Con CLINICAL HISTORY: Chest pain r/o sp4 PNA;COPD COMPARISON: FINDINGS: The lungs are emphysematous. No pulmonary nodule, mass or infiltrate. No pleural thickening or pleural effusion. No pneumothorax. No axillary, mediastinal or hilar adenopathy. No concerning bony finding. Cholecystectomy clips. All CT scans are performed using dose optimization technique as appropriate and may include automated exposure control or mA/KV adjustment according to patient size. IMPRESSION: Mild COPD. . sp4
--- NOTE | 2023-05-16 03:47 | ER ---
Nurse's Notes [facility] Name: Gisell Man Age: 67 yrs Sex: Female : 1955 Arrival Date: 05/15/2023 Time: 21:37 Bed 15 Private MD: Diagnosis: Chest pain, unspecified;Non cardiac chest pain Presentation: 05/15 21:36 Chief complaint: Patient states: chest pressure starting 2 days ago at middle of the as9 chest . With SOB today afternoon. at current my chest pain is 0/10. " I have COPD and with Oxygen at home at 2.5 LPM " EMS states: chest pressure and pain score 6/10. given with 4 baby aspirin and nitro tablet. 21:36 Coronavirus screen: Vaccine status: Patient reports receiving the 2nd dose of the covid as9 vaccine. At this time, the client does not indicate any symptoms associated with coronavirus-19. Ebola Screen: No symptoms or risks identified at this time. Initial Sepsis Screen: Does the patient meet any 2 criteria? No. Patient's initial sepsis screen is negative. Does the patient have a suspected source of infection? No. Patient's initial sepsis screen is negative. Risk Assessment: Do you want to hurt yourself or someone else? Patient reports no desire to harm self or others. Onset of symptoms was May 13, 2023. 21:36 Method Of Arrival: EMS: [facility] as9 21:36 Acuity: TOMMY 3 as9 Triage Assessment: 21:36 General: Appears in no apparent distress. comfortable, Behavior is calm, cooperative, as9 appropriate for age. Pain: Complains of pain in chest Pain currently is 0 out of 10 on a pain scale. EENT: No signs and/or symptoms were reported regarding the EENT system. Neuro: Level of Consciousness is awake, alert, obeys commands, Oriented to person, place, time, situation, Appropriate for age. Cardiovascular: Capillary refill < 3 seconds Patient's skin is warm and dry. Respiratory: Airway is patent Respiratory effort is even, unlabored, Respiratory pattern is regular, symmetrical. GI: No signs and/or symptoms were reported involving the gastrointestinal system. : No signs and/or symptoms were reported regarding the genitourinary system. Derm: Skin is pink, warm \\T\\ dry. Musculoskeletal: Circulation, motion, and sensation intact. Range of motion: intact in all extremities. Historical: - Allergies: 21:36 Albuterol; 9 21:36 Codeine; 21:36 Iodine; - PMHx: 21:36 bilateral breast cancer; Chronic obstructive lung disease; Endometriosis of vagina; Hypothyroidism; - PSHx: 21:36 Cholecystectomy; Tonsillectomy; - Immunization history:: Client reports receiving the 2nd dose of the Covid vaccine, Pneumococcal vaccine is up to date, Flu vaccine is up to date. - Social history:: Smoking status: Patient denies any tobacco usage or history of. Patient/guardian denies using alcohol, street drugs. Screenin:38 [facility] ED Fall Risk Assessment (Adult) History of falling in the last 3 months, including since admission No falls in past 3 months (0 pts) Confusion or Disorientation No (0 pts) Intoxicated or Sedated No (0 pts) Impaired Gait No (0 pts) Mobility Assist Device Used No (0 pt) Altered Elimination No (0 pt) Score/Fall Risk Level 0 - 2 = Low Risk. Abuse screen: Denies threats or abuse. Nutritional screening: No deficits noted. Tuberculosis screening: No symptoms or risk factors identified. Assessment: 23:37 Reassessment: see triage notes assessments. Vital Signs: 21:36 BP 126 / 60; Pulse 84; Resp 20; Temp 98.7; Pulse Ox 100% on 2.5 lpm NC; Weight 40.82 as9 kg; Height 5 ft. 0 in. ; 22:00 BP 115 / 83; Pulse 84; Resp 20; Temp 98.7; Pulse Ox 100% on 2.5 lpm NC; 9 22:30 BP 121 / 61; Pulse 82; Resp 20; Pulse Ox 100% on 2.5 lpm NC; 9 22:48 BP 131 / 58; Pulse 78; Resp 20; Pulse Ox 100% on 2.5 lpm NC; 23:00 BP 150 / 67; Pulse 78; Resp 20; Pulse Ox 100% on 2.5 lpm NC; 00:15 BP 122 / 60; Pulse 77; Resp 20; Pulse Ox 99% on 2.5 lpm NC; 01:00 BP 119 / 58; Pulse 74; Resp 19; Pulse Ox 100% on 2.5 lpm NC; as9 02:00 BP 122 / 54; Pulse 74; Resp 20; Pulse Ox 100% on 2.5 lpm NC; as9 03:00 BP 126 / 67; Pulse 80; Resp 19; Pulse Ox 99% on 2.5 lpm NC; as9 04:00 BP 127 / 65; Pulse 82; Resp 20; Temp 98.7; Pulse Ox 99% on 2.5 lpm NC; as9 05/15 21:36 Body Mass Index 17.58 (40.82 kg, 152.4 cm) as9 ED Course: 05/15 21:43 Patient arrived in ED. rv1 21:51 Deborah Champagne FNP-C is PHCP. kb 21:51 Chivo Contreras MD is Attending Physician. kb 22:27 XRAY Chest (1 view) In Process Unspecified. EDMS 22:58 Basic Metabolic Panel Sent. rv 22:59 CBC with Diff Sent. rv 22:59 LFT's Sent. rv 22:59 Magnesium Sent. rv 22:59 NT PRO-BNP Sent. rv 22:59 PT-INR Sent. rv 22:59 Troponin HS Sent. rv 22:59 Inserted saline lock: 22 gauge in left antecubital area, using aseptic technique. Blood rv collected. 23:33 Triage completed. as9 23:38 Patient has correct armband on for positive identification. Bed in low position. Call as9 light in reach. Side rails up X 1. 23:48 Parrish Lauren, RN is Primary Nurse. 03:46 Trevor Sarmiento MD is Referral Physician. sp4 04:02 No provider procedures requiring assistance completed. IV discontinued, intact, as9 bleeding controlled, No redness/swelling at site. Pressure dressing applied. 04:03 Arm band placed on right wrist. as9 04:08 Provided Education on: discharge instruction and follow up given and explained well to as9 the patient. Administered Medications: 00:13 Drug: Potassium Chloride PO 40 mEq PO once Route: PO; as9 04:09 Follow up: Response: No adverse reaction as9 Medication: 05/15 23:38 VIS not applicable for this client. 9 Outcome: 03:47 Discharge ordered by . sp4 04:08 Discharged to home via wheelchair, as9 04:08 Condition: good 04:08 Discharge instructions given to patient, family, Instructed on discharge instructions, follow up and referral plans. Demonstrated understanding of instructions, follow-up care, 04:10 Patient left the ED. as9 Signatures: Dispatcher [employer] EDDeborah Malik, FILLER ROOM ATTENDANT-C FILLER ROOM ATTENDANT-Ckb Aiden Yanez, RN RN rv Eneida Berg rv1 Chivo Contreras MD MD sp4 Parrish Lauren RN RN as9
[2023-05-16 04:25] VITALS: TEMP 98.7
[2023-05-16 04:44] VITALS: BP 127/65; O2SAT 99
--- NOTE | 2023-05-16 15:23 | EKG ---
Test Date: 2023-05-15 Test Time: 22:04:44 Feller Seam Operator: Carmelita MEASUREMENT RESULTS: Intervals: Rate: 79 OH: 120 QRSD: 78 QT: 424 QTc: 486 Fletcher: P: 66 OH: 120 QRS: -44 T: 81 INTERPRETIVE STATEMENTS: Normal sinus rhythm Left axis deviation Anterior infarct, age undetermined Abnormal ECG Compared to ECG 11/22/2014 14:21:57 Left-axis deviation now present Myocardial infarct finding now present Atrial abnormality no longer present Electronically Signed On 05-16-23 15:22:39 SLD TEACHER by Bandar Murillo
== END ==
LOC: ER 21:37
DX: R07.89 Other chest pain (principal); J44.9 Chronic obstructive pulmonary disease, unspecified; Z85.3 Personal history of malignant neoplasm of breast; Z88.5 Allergy status to narcotic agent; Z88.8 Allergy status to other drugs, medicaments and biological substances; Z91.048 Other nonmedicinal substance allergy status
CPT/HCPCS: 36415; 71045; 80048; 80076; 83735; 83880; 84484; 85025; 85610; 93005

== ENCOUNTER 2023-06-10 19:03 | Inpatient (IN) | payer OTHER ==
[2023-06-10 20:35] LABS: Absolute Basophils 0.1 K/uL (0-0.5); Absolute Lymphocytes (CBC) 1.1 K/uL (0.7-4.9); Absolute Monocytes 0.7 K/uL (0.1-1.3); Absolute Neutrophil 7.5 K/uL (1.8-8.0); Basophils % 0.8 % (0-1.3); Eosinophils % 0.3 % (0-4.4); Hematocrit 40.3 % (36.0-45.0); Hemoglobin 13.7 g/dL (12.0-15.0); Lymphocytes % 11.8 % (15.3-44.8); MCH 30.3 pg (27.0-35.0); MCV 89.1 fL (80-100); MPV 9.6 fL (7.6-11.3); Monocytes % 7.5 % (3.3-12.3); Neutrophils % 79.6 % (41.7-73.7); Platelets 192 thou/uL (152-406); RBC Red Blood Cell Count 4.52 M/uL (3.86-4.86); Red Cell Distribution Width 14.7 % (12.1-15.2)
[2023-06-10 20:39] LABS: PT Prothrombin Time 10.9 SECONDS (9.5-12.5); PTT, Activated Partial Thromb 29.6 SECONDS (24.3-36.9); Protime INR 0.99
[2023-06-10 20:52] LABS: ALT/SGPT 26 U/L (13-56); Albumin 3.4 g/dL (3.4-5.0); Albumin/Globulin Ratio 0.9 (1.1-1.8); Alkaline Phosphatase 70 U/L (45-117); Anion Gap 10.2 mEq/L (5.0-15.0); BUN Blood Urea Nitrogen 7 mg/dL (7-18); Bicarbonate 30 mEq/L (21-32); Bilirubin Direct 0.2 mg/dL (0-0.2); Bilirubin Indirect, Calculated 0.8 mg/dL (0.2-0.8); Globulin 3.6 g/dL (2.3-3.5); Glomerular Filtration Rate 83 ml/min (=/>90); Glucose Level 138 mg/dL (74-106); Sodium Level 129 mEq/L (136-145)
[2023-06-10 20:56] LABS: AST/SGOT 29 U/L (15-37); Potassium 3.2 mEq/L (3.5-5.1)
[2023-06-10 21:30] LABS: Barbiturates NEGATIVE (NEGATIVE); Benzodiazepines NEGATIVE (NEGATIVE); Cocaine NEGATIVE (NEGATIVE); METHAMPHETAM NEGATIVE (NEGATIVE); Methadone NEGATIVE (NEGATIVE); Opiates NEGATIVE (NEGATIVE); Phencyclidine NEGATIVE (NEGATIVE); Specific Gravity 1.009 (1.005-1.030); THC Cannibis POSITIVE (NEGATIVE); Urine Bilirubin NEGATIVE (Negative); Urine Blood Negative (Negative); Urine Clarity Clear (Clear); Urine Color Light-Yellow (Yellow); Urine Glucose NEGATIVE (Negative); Urine Ketones NEGATIVE (Negative); Urine Microscopic Reflex YN NO UMIC; Urine Nitrite NEGATIVE (Negative); Urine Protein NEGATIVE (Negative); Urine Urobilinogen Normal (Normal); Urine pH 6.5 (5.0-7.0)
--- NOTE | 2023-06-10 22:01 | RAD REPORT ---
EXAM DESCRIPTION: CT - Head Brain Wo Cont - 06/10/2023 9:48 pm CLINICAL HISTORY: Delirium psychosis COMPARISON: none TECHNIQUE: Computed axial tomography of the head was obtained. IV contrast was not requested. All CT scans are performed using dose optimization technique as appropriate and may include automated exposure control or mA/KV adjustment according to patient size. FINDINGS: An intracranial bleed is not seen The ventricles are normal in caliber No significant hypodense areas within the brain visualized No extra-axial fluid collection is noted. Fluid within the sinuses/ mastoids is not seen IMPRESSION: No acute intracranial abnormality is seen If patient's symptoms persist MRI of the brain would be recommended
[2023-06-10] MEDS ORDERED: NA CHLORIDE 0.9% 1,000 ML ONE (22:24)
[2023-06-11 01:05] LABS: Anion Gap 7.6 mEq/L (5.0-15.0)
[2023-06-11 01:16] LABS: Potassium 2.6 mEq/L (3.5-5.1)
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
[2023-06-11] MEDS ORDERED: POTASSIUM CL SA 10 MEQ TAB PO ONE ×2 (02:09→09:51)
[2023-06-11] MEDS ORDERED: IPRATROPIUM BROM 0.5MG/2.5ML ONE (02:19)
[2023-06-11] MEDS ORDERED: ALBUTEROL 2.5 MG/3 ML NEB SOL ONE (02:19)
[2023-06-11] MEDS ORDERED: NA CHLORIDE 0.9% 1,000 ML ONE (05:54)
[2023-06-11] MEDS: NA CHLORIDE 0.9% 1,000 ML IV SCH (07:00)
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
[2023-06-11] MEDS: KCL 20 MEQ/100 mL IVPB 20 MEQ/100 ML BAG IV SCH (08:00)
[2023-06-11] MEDS: BUDESONIDE 0.5 MG/2 ML NEB NEB SCH (08:00)
[2023-06-11 08:19] LABS: Magnesium 2.2 mg/dL (1.6-2.4); Potassium 3.4 mEq/L (3.5-5.1)
[2023-06-11] MEDS: ENOXAPARIN 30 MG/0.3 ML SQ SCH (09:00)
[2023-06-11] MEDS ORDERED: ENOXAPARIN 30 MG/0.3 ML SQ ONE (09:50)
[2023-06-11] MEDS ORDERED: METHYLPREDNISOLONE 125 MG INJ ONE (09:50)
[2023-06-11] MEDS ORDERED: METHYLPREDNISOLONE 40 MG INJ ONE ×2 (09:56→16:04)
[2023-06-11] MEDS: METHYLPREDNISOLONE 40 MG INJ IV SCH (09:57)
[2023-06-11] MEDS: POTASSIUM CL SA 10 MEQ TAB PO ONE (09:58)
[2023-06-11 10:13] VITALS: BMI 18.5
[2023-06-11] MEDS ORDERED: LEVALBUTEROL 1.25 MG/3 ML NEB ONE ×2 (12:22→19:18)
[2023-06-11] MEDS: LEVALBUTEROL 1.25 MG/3 ML NEB NEB SCH (12:26)
--- NOTE | 2023-06-11 17:02 | EKG ---
Test Date: 2023-06-10 Test Time: 20:45:54 Automotive Painter: MANNY MEASUREMENT RESULTS: Intervals: Rate: 87 HI: 130 QRSD: 78 QT: 362 QTc: 435 [place]: P: 92 HI: 130 QRS: -35 T: 87 INTERPRETIVE STATEMENTS: Normal sinus rhythm Right atrial enlargement Left axis deviation Pulmonary disease pattern Septal infarct, age undetermined Abnormal ECG Compared to ECG 05/15/2023 22:04:44 Atrial abnormality now present Myocardial infarct finding still present Electronically Signed On 06-11-23 17:00:18 CDT by Bandar Murillo
[2023-06-11 17:55] LABS: Anion Gap 9.6 mEq/L (5.0-15.0); Potassium 4.6 mEq/L (3.5-5.1)
[2023-06-11] MEDS ORDERED: clonazePAM 1 MG TAB ONE (21:01)
[2023-06-11] MEDS: clonazePAM 1 MG TAB PO SCH (21:01)
[2023-06-12] MEDS ORDERED: METHYLPREDNISOLONE 40 MG INJ ONE ×3 (00:53→17:46)
[2023-06-12] MEDS ORDERED: LEVALBUTEROL 1.25 MG/3 ML NEB ONE ×3 (02:09→13:55)
[2023-06-12 04:53] LABS: Absolute Lymphocytes (CBC) 0.3 K/uL (0.7-4.9); Absolute Monocytes 0.1 K/uL (0.1-1.3); Absolute Neutrophil 6.4 K/uL (1.8-8.0); Basophils % 0.2 % (0-1.3); Hematocrit 34.3 % (36.0-45.0); Hemoglobin 11.6 g/dL (12.0-15.0); Lymphocytes % 5.1 % (15.3-44.8); MCH 30.4 pg (27.0-35.0); MCHC 33.8 g/dL (32.0-36.0); MCV 89.9 fL (80-100); MPV 9.9 fL (7.6-11.3); Monocytes % 1.5 % (3.3-12.3); Neutrophils % 93.2 % (41.7-73.7); Nucleated Red Blood Cells % 0.1 % (0-0); Platelets 163 thou/uL (152-406); RBC Red Blood Cell Count 3.81 M/uL (3.86-4.86); Red Cell Distribution Width 14.9 % (12.1-15.2)
[2023-06-12 05:14] LABS: Albumin 2.7 g/dL (3.4-5.0); Anion Gap 9.3 mEq/L (5.0-15.0); Bilirubin Total 0.5 mg/dL (0.2-1.0); Globulin 2.7 g/dL (2.3-3.5); Potassium 4.3 mEq/L (3.5-5.1); Protein, Total 5.4 g/dL (6.4-8.2)
[2023-06-12 05:15] LABS: Magnesium 2.3 mg/dL (1.6-2.4)
[2023-06-12] MEDS ORDERED: NA CHLORIDE 0.9% 1,000 ML ONE (05:43)
[2023-06-12 09:10] LABS: Blood Morphology Comment NOT SEEN (NOT SEEN); Differential Total Cells Count 100; Lymphocytes 6 % (15-42); Monocytes 1 % (0-10); Platelet Estimate ADEQ; Segmented Neutrophils 93 % (40-80)
[2023-06-12 12:16] VITALS: TEMP 98.8
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
[2023-06-12 17:04] VITALS: BP 128/60; O2SAT 98
[2023-06-12 17:04] LABS: SARS-CoV-2 Antigen CONTROL BLUE LINE VIS/BG OK; SARS-CoV-2 Antigen Rapid Res Negative (Negative)
== END 2023-06-12 18:03 | DRG 885 ==
LOC: ER 19:03 → ERHOLD 06-11 06:52 → 3RD-ICU 06-11 07:38
PROVIDERS: ADMIT Hospitalist; ATTEND Internal Medicine
DX: F22 Delusional disorders (principal); F23 Brief psychotic disorder; E87.1 Hypo-osmolality and hyponatremia; E03.9 Hypothyroidism, unspecified; E87.6 Hypokalemia; J43.9 Emphysema, unspecified; F25.9 Schizoaffective disorder, unspecified; F17.210 Nicotine dependence, cigarettes, uncomplicated; Z60.2 Problems related to living alone; Z85.3 Personal history of malignant neoplasm of breast; Z88.5 Allergy status to narcotic agent; Z11.52 Encounter for screening for COVID-19; Z99.81 Dependence on supplemental oxygen; Z90.13 Acquired absence of bilateral breasts and nipples; Z90.49 Acquired absence of other specified parts of digestive tract; Z28.310 Unvaccinated for COVID-19; Z91.048 Other nonmedicinal substance allergy status; Z79.899 Other long term (current) drug therapy
CPT/HCPCS: 36415; 70450; 80048; 80053; 80061; 80076; 80143; 80179; 80307; 81003; 82077; 83735; 84132; 84443; 85025; 85610; 85730; 87811; 93005; 94640; 96360; 99285; J1650; J2920; J2930; J7030; J7613; J7614; J7626; J7644

== ENCOUNTER 2024-02-16 15:51 | Inpatient (IN) | payer OTHER ==
[2024-02-16 16:42] LABS: SARS-CoV-2 Antigen CONTROL BLUE LINE VIS/BG OK; SARS-CoV-2 Antigen Rapid Res Negative (Negative)
[2024-02-16 17:00] LABS: Absolute Basophils 0.1 K/uL (0-0.5); Absolute Eosinophils 0.1 K/uL (0-0.5); Absolute Lymphocytes (CBC) 0.6 K/uL (0.7-4.9); Absolute Monocytes 0.3 K/uL (0.1-1.3); Absolute Neutrophil 4.7 K/uL (1.8-8.0); Eosinophils % 1.8 % (0-4.4); Hematocrit 39.5 % (36.0-45.0); Hemoglobin 12.7 g/dL (12.0-15.0); Lymphocytes % 10.9 % (15.3-44.8); MCH 29.9 pg (27.0-35.0); MCV 93.3 fL (80-100); MPV 9.6 fL (7.6-11.3); Monocytes % 5.6 % (3.3-12.3); Neutrophils % 80.7 % (41.7-73.7); Nucleated Red Blood Cells % 0.1 % (0-0); Platelets 191 thou/uL (152-406); RBC Red Blood Cell Count 4.24 M/uL (3.86-4.86); Red Cell Distribution Width 15.8 % (12.1-15.2)
--- NOTE | 2024-02-16 17:01 | ER ---
Nurse's Notes [facility] Name: Gisell Man Age: 68 yrs Sex: Female : 1955 Arrival Date: 02/16/2024 Time: 15:51 Bed 4 Private MD: Diagnosis: COPD/ Chronic obstructive pulmonary disease with (acute) exacerbation;Hypoxemia;Cough;Acute upper respiratory infection, unspecified Presentation: 02/15 15:56 Chief complaint: EMS states: SHORTNESS OF BREATH AND PRODUCTIVE COUGH. Coronavirus bp screen: At this time, the client does not indicate any symptoms associated with coronavirus-19. Ebola Screen: No symptoms or risks identified at this time. Initial Sepsis Screen: Does the patient meet any 2 criteria? HR > 90 bpm. No. Patient's initial sepsis screen is negative. Does the patient have a suspected source of infection?. Risk Assessment: Do you want to hurt yourself or someone else? Patient reports no desire to harm self or others. Onset of symptoms is unknown. Care prior to arrival: Medication(s) given: XOPENEX, 125 MG SOLU-MEDROL IV initiated. 20 GA, in the left antecubital area. 15:56 Method Of Arrival: EMS: [facility] bp 15:56 Acuity: TOMMY 3 bp Triage Assessment: 15:59 General: Appears in no apparent distress. Behavior is cooperative, appropriate for age, bp anxious. Pain: Denies pain. EENT: No deficits noted. Neuro: No deficits noted. Cardiovascular: Rhythm is sinus tachycardia. Respiratory: Reports shortness of breath cough that is productive, Onset: The symptoms/episode began/occurred at an unknown time. the patient has mild shortness of breath. GI: No signs and/or symptoms were reported involving the gastrointestinal system. : No signs and/or symptoms were reported regarding the genitourinary system. Derm: No deficits noted. Musculoskeletal: No deficits noted. Historical: - Allergies: 15:59 Adhesives; bp 15:59 Codeine; bp 15:59 Iodine; bp - PMHx: 15:59 bilateral breast cancer; Chronic obstructive lung disease; Endometriosis of vagina; bp Hypothyroidism; - PSHx: 15:59 Cholecystectomy; Tonsillectomy; bp - Immunization history:: Adult Immunizations up to date. - Infectious Disease History:: Denies. - Social history:: Smoking status: unknown. - Family history:: not pertinent. Screenin:00 [facility] ED Fall Risk Assessment (Adult) History of falling in the last 3 months, bp including since admission No falls in past 3 months (0 pts) Confusion or Disorientation No (0 pts) Intoxicated or Sedated No (0 pts) Impaired Gait No (0 pts) Mobility Assist Device Used No (0 pt) Altered Elimination No (0 pt) Score/Fall Risk Level 0 - 2 = Low Risk Oriented to surroundings. Abuse screen: Denies threats or abuse. Denies injuries from another. Nutritional screening: No deficits noted. Tuberculosis screening: No symptoms or risk factors identified. Assessment: 16:00 General: Appears in no apparent distress. Behavior is cooperative, appropriate for age, bp anxious. Cardiovascular: Rhythm is sinus tachycardia. Respiratory: Airway is patent Respiratory effort is labored, Breath sounds with crackles bilaterally. 16:43 Reassessment: Dr. Acosta at bedside assessing pt and discussing POC. jl7 Vital Signs: 15:56 BP 135 / 71; Pulse 106; Resp 23; Temp 98; Pulse Ox 99% on 4 lpm NC; Weight 45 kg; bp 16:47 BP 117 / 47; Pulse 98; Resp 26; Pulse Ox 95% on 4 lpm NC; jl7 19:57 BP 133 / 49; Pulse 99; Resp 19; Temp 98.4; Pulse Ox 100% ; dd2 ED Course: 15:56 Patient arrived in ED. bp 15:59 Triage completed. bp 15:59 Arm band placed on. bp 16:00 Patient has correct armband on for positive identification. Bed in low position. bp 16:00 Maintain EMS IV. Dressing intact. Good blood return noted. Site clean \T\ dry. Gauge \T\ bp site: 20 LAC. Flushed with 10 mL NS. 16:01 Fara Tamayo, RN is Primary Nurse. jl7 16:01 Primary Nurse role handed off by Fara Tamayo RN bp 16:01 Noam Negron, ALLA is Primary Nurse. bp 16:02 Rivas Acosta MD is Attending Physician. ronak 16:31 SARS RAPID Sent. am7 16:31 Flu Sent. am7 16:33 Initial lab(s) drawn, by me, sent to lab. First set of blood cultures drawn by me. jl7 16:44 Warm blanket given. Verbal reassurance given. am7 16:45 EKG done, by ED staff, reviewed by Rivas Acosta MD. am7 16:45 Second set of blood cultures drawn by va. jl7 16:58 XRAY Chest (1 view) In Process Unspecified. EDMS 16:59 Sylvia Mcleod MD is Hospitalizing Provider. [facility] 19:12 Primary Nurse role handed off by Noam Negron, ALLA jl7 19:56 JOHN CRAWFORD, RN is Primary Nurse. dd2 19:57 No provider procedures requiring assistance completed. dd2 21:32 Provided Education on: ADMISSION INSTRUCTIONS. dd2 21:32 Patient admitted, IV remains in place. dd2 Administered Medications: 17:30 Drug: Levalbuterol Inhalation 2.5 mg Inhalation once Route: Inhalation; bp 19:10 Follow up: Response: No adverse reaction jl7 17:30 Drug: NS 0.9% IV (30 ml/kg) 30 ml/kg IV at bolus once; Sepsis Protocol; to be given as bp a bolus over 90 minutes Route: IV; Rate: bolus; Site: left forearm; 19:09 Follow up: Response: No adverse reaction; IV Status: Completed infusion; IV Intake: jl7 1350ml 17:30 Drug: LevOfloxacin PO 500 mg PO once Route: PO; bp 19:09 Follow up: Response: No adverse reaction jl7 17:30 Drug: Magnesium Sulfate IVPB 2 grams IVPB once over 2 hrs Route: IVPB; Infused Over: 2 bp hrs; Site: left forearm; 19:09 Follow up: Response: No adverse reaction; IV Status: Completed infusion jl7 Medication: 16:00 VIS not applicable for this client. bp Intake: 19:09 IV: 1350ml; Total: 1350ml. jl7 Outcome: 17:00 Decision to Hospitalize by Provider. ronak 21:32 Admitted to Med/surg accompanied by tech, via wheelchair, with chart, dd2 21:32 Condition: stable 21:32 Instructed on the need for admit, 21:45 Patient left the ED. vk Signatures: Dispatcher [employer] Rivas Mixon MD MD cha Leal, Jahala, RN RN jl7 Noam Negron, RN RN Naima Mercado vk JOHN CRAWFORD RN RN dd2 Muraira, Elis am7 Corrections: (The following items were deleted from the chart) 16:21 15:56 BP 135 / 71; Pulse 106bpm; Resp 23bpm; Pulse Ox 99% 4 lpm Nasal Cannula; Temp bp 98F; bp
--- NOTE | 2024-02-16 17:01 | EDPHYS ---
Physician Documentation [facility] Name: Gisell Man Age: 68 yrs Sex: Female : 1955 Arrival Date: 02/16/2024 Time: 15:51 Bed 4 Private MD: ROSE Physician Rivas Acosta HPI: 02/15 16:47 This 68 yrs old Female presents to ER via EMS with complaints of Shortness Of ronak Breath. 16:47 The patient has shortness of breath at rest, with light activity. Onset: The ronak symptoms/episode began/occurred 2 day(s) ago. Duration: The symptoms are continuous, and are steadily getting worse. The patient's shortness of breath has no apparent modifying factors. Associated signs and symptoms: Pertinent positives: productive cough. Severity of symptoms: At their worst the symptoms were moderate in the emergency department the symptoms are unchanged. The patient has experienced similar episodes in the past, multiple times. Historical: - Allergies: 15:59 Adhesives; bp 15:59 Codeine; bp 15:59 Iodine; bp - PMHx: 15:59 bilateral breast cancer; Chronic obstructive lung disease; Endometriosis of vagina; bp Hypothyroidism; - PSHx: 15:59 Cholecystectomy; Tonsillectomy; bp - Immunization history:: Adult Immunizations up to date. - Infectious Disease History:: Denies. - Social history:: Smoking status: unknown. - Family history:: not pertinent. ROS: 16:47 Constitutional: Negative for fever, chills, and weight loss, Eyes: Negative for injury, ronak pain, redness, and discharge, ENT: Negative for injury, pain, and discharge, Neck: Negative for injury, pain, and swelling, Cardiovascular: Negative for chest pain, palpitations, and edema, Abdomen/GI: Negative for abdominal pain, nausea, vomiting, diarrhea, and constipation, Back: Negative for injury and pain, : Negative for injury, bleeding, discharge, and swelling, MS/Extremity: Negative for injury and deformity, Skin: Negative for injury, rash, and discoloration, Neuro: Negative for headache, weakness, numbness, tingling, and seizure, Psych: Negative for depression, anxiety, suicide ideation, homicidal ideation, and hallucinations, Allergy/Immunology: Negative for hives, rash, and allergies, Endocrine: Negative for neck swelling, polydipsia, polyuria, polyphagia, and marked weight changes, Hematologic/Lymphatic: Negative for swollen nodes, abnormal bleeding, and unusual bruising, 16:47 Respiratory: Positive for cough, wheezing, inspiratory, expiratory, Exam: 16:47 Constitutional: This is a well developed, well nourished patient who is awake, alert, ronak and in no acute distress. Head/Face: Normocephalic, atraumatic. Eyes: Pupils equal round and reactive to light, extra-ocular motions intact. Lids and lashes normal. Conjunctiva and sclera are non-icteric and not injected. Cornea within normal limits. Periorbital areas with no swelling, redness, or edema. ENT: Nares patent. No nasal discharge, no septal abnormalities noted. Tympanic membranes are normal and external auditory canals are clear. Oropharynx with no redness, swelling, or masses, exudates, or evidence of obstruction, uvula midline. Mucous membranes moist. Neck: Trachea midline, no thyromegaly or masses palpated, and no cervical lymphadenopathy. Supple, full range of motion without nuchal rigidity, or vertebral point tenderness. No Meningismus. Chest/axilla: Normal chest wall appearance and motion. Nontender with no deformity. No lesions are appreciated. Cardiovascular: Regular rate and rhythm with a normal S1 and S2. No gallops, murmurs, or rubs. Normal PMI, no JVD. No pulse deficits. Abdomen/GI: Soft, non-tender, with normal bowel sounds. No distension or tympany. No guarding or rebound. No evidence of tenderness throughout. Back: No spinal tenderness. No costovertebral tenderness. Full range of motion. Skin: Warm, dry with normal turgor. Normal color with no rashes, no lesions, and no evidence of cellulitis. MS/ Extremity: Pulses equal, no cyanosis. Neurovascular intact. Full, normal range of motion., bilateral aka Neuro: Awake and alert, GCS 15, oriented to person, place, time, and situation. Cranial nerves II-XII grossly intact. Motor strength 5/5 in all extremities. Sensory grossly intact. Cerebellar exam normal. Normal gait. Psych: Awake, alert, with orientation to person, place and time. Behavior, mood, and affect are within normal limits. 16:47 ECG was reviewed by the Attending Physician. 16:47 Respiratory: mild respiratory distress is noted, Respirations: labored breathing, that is mild, prolonged exhalation, that is mild, Breath sounds: bronchial sounds, that are mild, are scattered, decreased breath sounds, that are mild, are scattered, rhonchi, that are mild, are scattered, stridor, is not appreciated, + upper airway congestion. wheezing: inspiratory expiratory Respiratory rate: 26 17:00 Musculoskeletal/extremity: DVT Exam: No signs of deep vein thrombosis. no pain, no ronak swelling, no tenderness, negative Homans' sign noted on exam, no appreciated bluish discoloration, no erythema, no increased warmth, Vital Signs: 15:56 BP 135 / 71; Pulse 106; Resp 23; Temp 98; Pulse Ox 99% on 4 lpm NC; Weight 45 kg; bp 16:47 BP 117 / 47; Pulse 98; Resp 26; Pulse Ox 95% on 4 lpm NC; jl7 19:57 BP 133 / 49; Pulse 99; Resp 19; Temp 98.4; Pulse Ox 100% ; dd2 MDM: 16:02 Medical Screening Exam initiated ronak 16:04 Medical Screening Exam initiated ronak 16:52 Differential diagnosis: Anemia Anxiety Reaction asthma, Bronchitis CHF exacerbation, ronak Chronic Obstructive Pulmonary Disease Myocardial Infarction pneumonia, Pneumothorax Psychogenic pulmonary edema, reactive airway disease, Sepsis Unstable Angina. Antibiotic administration: Levaquin given. Immunization status: Pneumococcal vaccine: Influenza vaccine: within last 5 years. Data reviewed: vital signs, nurses notes, lab test result(s), EKG, radiologic studies, plain films. Consideration of Admission/Observation Patient was admitted/placed on observation. Escalation of care including admission/observation considered. I considered the following discharge prescriptions or medication management in the emergency department Medications were administered in the Emergency Department. See MAR. Independent interpretation of the following test(s) in the Emergency Department EKG: See my EKG interpretation above. Test considered but Not performed: CT: no ct chest. Historians other than the Patient: Family Member: family well informed. Care significantly affected by the following chronic conditions: Chronic Obstructive Pulmonary Disease, Cancer, hypothyroid. Counseling: I had a detailed discussion with the patient and/or guardian regarding the historical points, exam findings, and any diagnostic results supporting the discharge/admit diagnosis, lab results, radiology results, the need for further work-up and treatment in the hospital. 02/15 16:03 Order name: Basic Metabolic Panel; Complete Time: 17:23 [facility] [place] 02/15 16:03 Order name: CBC with Diff; Complete Time: 17:06 [facility] [place] 02/15 16:03 Order name: LFT's; Complete Time: 17:23 [facility] [place] 02/15 16:03 Order name: Magnesium; Complete Time: 17:23 [facility] [place] 02/15 16:03 Order name: NT PRO-BNP; Complete Time: 17:23 [facility] [place] 02/15 16:03 Order name: PT-INR; Complete Time: 17:06 [facility] [place] 02/15 16:03 Order name: Troponin HS; Complete Time: 17:23 [facility] [place] 02/15 16:03 Order name: Blood Culture Adult (2) [facility] [place] 02/15 16:03 Order name: Lactate w/ 2H reflex if indic. [facility] [place] 02/15 16:03 Order name: Flu; Complete Time: 16:56 [facility] [place] 02/15 16:03 Order name: SARS RAPID; Complete Time: 16:56 [facility] [place] 02/15 17:58 Order name: Urinalysis w/ reflexes EDMS 02/15 18:06 Order name: Basic Metabolic Panel EDMS 02/15 18:06 Order name: Basic Metabolic Panel EDMS 02/15 18:06 Order name: Basic Metabolic Panel EDMS 02/15 18:06 Order name: Basic Metabolic Panel EDMS 02/15 18:06 Order name: CBC with Automated Diff EDMS 02/15 18:06 Order name: CBC with Automated Diff EDMS 02/15 18:06 Order name: CBC with Automated Diff EDMS 02/15 18:06 Order name: CBC with Automated Diff EDMS 02/15 18:06 Order name: Magnesium EDMS 02/15 18:06 Order name: Magnesium EDMS 02/15 18:06 Order name: Magnesium EDMS 02/15 18:06 Order name: Magnesium EDMS 02/15 16:03 Order name: XRAY Chest (1 view); Complete Time: 17:06 [facility] [place] 02/15 17:55 Order name: CT Lumbar Spine Wo Con cm12 02/15 19:12 Order name: CT EDMS 02/15 16:03 Order name: EKG; Complete Time: 16:04 [facility] [place] 02/15 17:58 Order name: Physical Therapy Consult EDMS 02/15 18:07 Order name: Social Service Consult EDMS 02/15 16:03 Order name: Cardiac monitoring; Complete Time: 16:44 [facility] [place] 02/15 16:03 Order name: EKG - Nurse/Tech; Complete Time: 16:44 [facility] [place] 02/15 16:03 Order name: IV Saline Lock; Complete Time: 16:21 [facility] [place] 02/15 16:03 Order name: Labs collected and sent; Complete Time: 17:40 [facility] [place] 02/15 16:03 Order name: O2 Per Protocol; Complete Time: 16:21 [facility] [place] 02/15 16:03 Order name: O2 Sat Monitoring; Complete Time: 16:21 [facility] [place] EC:47 Rate is 99 beats/min. Rhythm is regular. QRS [place] is Normal. [place] interval is normal. QRS ronak interval is normal. QT interval is normal. No Q waves. T waves are Normal. No ST changes noted. Clinical impression: NSR w/ Non-specific ST/T Changes and No evidence of ischemia. Interpreted by me. Reviewed by me. Administered Medications: 17:30 Drug: Levalbuterol Inhalation 2.5 mg Inhalation once Route: Inhalation; bp 19:10 Follow up: Response: No adverse reaction jl7 17:30 Drug: NS 0.9% IV (30 ml/kg) 30 ml/kg IV at bolus once; Sepsis Protocol; to be given as bp a bolus over 90 minutes Route: IV; Rate: bolus; Site: left forearm; 19:09 Follow up: Response: No adverse reaction; IV Status: Completed infusion; IV Intake: jl7 1350ml 17:30 Drug: LevOfloxacin PO 500 mg PO once Route: PO; bp 19:09 Follow up: Response: No adverse reaction jl7 17:30 Drug: Magnesium Sulfate IVPB 2 grams IVPB once over 2 hrs Route: IVPB; Infused Over: 2 bp hrs; Site: left forearm; 19:09 Follow up: Response: No adverse reaction; IV Status: Completed infusion jl7 Disposition Summary: 02/16/24 17:00 Hospitalization Ordered Notes: Hospitalization Status: Inpatient Admission ronak Provider: Sylvia Mcleod cha Location: Telemetry/MedSurg (Inpatient) ronak Condition: Fair ronak Problem: new ronak Symptoms: have improved ronak Bed/Room Type: Standard ronak Room Assignment: 216(02/16/24 19:26) vk Diagnosis - COPD/ Chronic obstructive pulmonary disease with (acute) exacerbation ronak - Hypoxemia ronak - Cough ronak - Acute upper respiratory infection, unspecified ronak Forms: - Medication Reconciliation Form ronak - SBAR form ronak - Leadership Thank You Letter ronak Signatures: Dispatcher [employer] EDRivas Snider MD MD cha Peltier, Brian, RN RN Naima Mercado Jahala RN jl7 Corrections: (The following items were deleted from the chart) 16:04 16:04 BASIC METABOLIC PANEL+C.LAB.BRZ ordered. EDMS EDMS 16:04 16:04 CBC+H.LAB.BRZ ordered. EDMS EDMS 16:04 16:04 HEPATIC FUNCTION+C.LAB.BRZ ordered. EDMS EDMS 16:04 16:04 MAGNESIUM+C.LAB.BRZ ordered. EDMS EDMS 16:04 16:04 PROBNP+C.LAB.BRZ ordered. EDMS EDMS 16:04 16:04 PROTIME (+INR)+COAG.LAB.BRZ ordered. EDMS EDMS 16:04 16:04 Troponin High Sensitivity+C.LAB.BRZ ordered. EDMS EDMS 16:04 16:04 BLOOD CULTURE*+BA.LAB.BRZ ordered. EDMS EDMS 16:04 16:04 LACTATE+C.LAB.BRZ ordered. EDMS EDMS 16:04 16:04 Influenza Screen (A \T\ B)+BA.LAB.BRZ ordered. EDMS EDMS 16:04 16:04 SARS-COV-2 Antigen Rapid+I.LAB.BRZ ordered. EDMS EDMS 19:26 17:00 ronak meade
[2024-02-16 17:02] LABS: PT Prothrombin Time 11.9 SECONDS (9.4-12.5); Protime INR 1.06
--- NOTE | 2024-02-16 17:05 | RAD REPORT ---
EXAMINATION: ONE VIEW CHEST XR CLINICAL INDICATION: COPD TECHNIQUE: Frontal chest projection is submitted. Examination is limited by patient positioning and t echnique. COMPARISON: 05/07/2023 FINDINGS: The lungs are diffusely emphysematous but grossly clear. The heart is normal in size. No displaced fr actures identified. IMPRESSION: COPD without an acute process suspected.
[2024-02-16 17:22] LABS: Albumin 3.5 g/dL (3.4-5.0); Anion Gap 9.6 mEq/L (5.0-15.0); Bilirubin Direct 0.2 mg/dL (0-0.2); Bilirubin Indirect, Calculated 0.5 mg/dL (0.2-0.8); Bilirubin Total 0.7 mg/dL (0.2-1.0); Globulin 3.4 g/dL (2.3-3.5); Magnesium 2.2 mg/dL (1.6-2.4); Potassium 3.6 mEq/L (3.5-5.1); Protein, Total 6.9 g/dL (6.4-8.2); Troponin High Sensitivity 6.8 pg/mL (<58.9)
[2024-02-16] MEDS ORDERED: levoFLOXacin 250 MG TAB ONE (17:46)
[2024-02-16] MEDS ORDERED: LEVALBUTEROL 1.25 MG/3 ML NEB ONE (17:46)
[2024-02-16] MEDS ORDERED: Magnesium Sulfate 2gm IVPB 2 G/50 ML BAG IV ONE (17:47)
[2024-02-16] MEDS ORDERED: NA CHLORIDE 0.9% 1,000 ML ONE (17:47)
--- NOTE | 2024-02-16 17:52 | P.HP ---
Certification for Inpatient Patient admitted to: Inpatient <Kristen Cody - Last Filed: 02/16/24 18:25> Patient History Date of Service: 02/16/24 Reason for admission: COPD exacerbation, impaired mobility History of Present Illness: 68-year-old female with a past medical history bilateral breast cancer; Chronic obstructive lung disease; Endometriosis of vagina; Hypothyroidism presents to the emergency room with shortness of breath. She reports shortness of breath started 2 days ago, getting progressively worse. She reports having to use increased amount of oxygen at home, unable to catch her breath. She reports productive cough, she reports taking albuterol nebulizer that is ineffective. She reports immobility, with a recent lumbar compression fracture reports that she sits in her wheelchair, unable to ambulate at home. She reports living alone, wearing a diaper. No reported fever, chest pain, nausea vomiting diarrhea, edema, plan to admit for COPD exacerbation lumbar compression fracture with immobility. - Past Medical/Surgical History Diabetic: No -: Breast Ca -: Left Mast -: Right Mast -: Tara -: Tonsillectomy -: Thyroidectomy Psychosocial/ Personal History: Lives alone in [place], has one Son who also lives in [place] - Family History Father -: Lung disease Mother -: Other (see notes) (dementia) - Social History Alcohol use: No CD- Drugs: No Caffeine use: Yes <Kristen Cody - Last Filed: 02/16/24 18:25> Date of Service: 02/16/24 <Sylvia Mcleod - Last Filed: 02/17/24 03:44> Allergies Iodinated Contrast Media [Iodinated Contrast Media - IV Dye] Allergy (Severe, Verified 04/01/23 22:09) Anaphylaxis iodine Allergy (Severe, Verified 04/01/23 22:20) Anaphylaxis adhesive tape Allergy (Verified 04/01/23 22:19) Itching codeine Allergy (Verified 04/01/23 22:09) Nausea/Vomiting albuterol Adverse Reaction (Verified 04/01/23 22:09) jittery Home Medications: Levalbuterol [Xopenex*] 1.25 mg NEB TID 04/02/23 Thyroid,Pork [[place] Thyroid] 60 mg PO DAILY 04/02/23 clonazePAM [Clonazepam] 1 mg PO BEDTIME 04/02/23 Albuterol Inhaler [Ventolin Inhaler*] 2 puff IH Q6H 06/11/23 Acetaminophen [Tylenol] 1,000 mg PO PRN 02/16/24 Lidocaine [Lidocaine Pain Relief] 1 each TP PRN 02/16/24 Melatonin 10 mg PO PRN 02/16/24 Review of Systems 10-point ROS is otherwise unremarkable General: As per HPI <Kristen Cody - Last Filed: 02/16/24 18:25> Physical Examination - Physical Exam General: Alert, Oriented x3, Mild distress, Other (Frail) HEENT: Atraumatic, Normocephalic, PERRLA Neck: Supple, 2+ carotid pulse no bruit, JVD not distended Respiratory: Clear to auscultation bilaterally, Normal air movement Cardiovascular: Normal pulses, Regular rate/rhythm, Normal S1 S2 Capillary refill: <2 Seconds Gastrointestinal: Normal bowel sounds, Soft and benign Musculoskeletal: No clubbing, No swelling, Other (Neurolysed weakness with impaired mobility) Integumentary: No breakdown, No significant lesion, Other (Bilateral upper extremity bruising) Neurological: Normal speech, Normal strength at 5/5 x4 extr, Cranial nerves 3-12 intact, Abnormal gait, Abnormal strength - Studies Laboratory Data (last 24 hrs) 02/16/24 02/16/24 02/16/24 16:42 16:42 16:42 WBC 5.80 Hgb 12.7 Hct 39.5 Plt Count 191 PT 11.9 INR 1.06 Sodium 136 Potassium 3.6 BUN 9 Creatinine 0.58 Glucose 106 Magnesium 2.2 Total Bilirubin 0.7 AST 34 ALT 24 Alkaline Phosphatase 104 Microbiology Data (last 24 hrs): 02/16/24 16:15 Nasopharnyx Influenza Type A Antigen Screen - Final 02/16/24 16:15 Nasopharnyx Influenza Type B Antigen Screen - Final <Kristen Cody - Last Filed: 02/16/24 18:25> - Studies Laboratory Data (last 24 hrs) 02/16/24 02/16/24 02/16/24 16:42 16:42 16:42 WBC 5.80 Hgb 12.7 Hct 39.5 Plt Count 191 PT 11.9 INR 1.06 Sodium 136 Potassium 3.6 BUN 9 Creatinine 0.58 Glucose 106 Magnesium 2.2 Total Bilirubin 0.7 AST 34 ALT 24 Alkaline Phosphatase 104 Microbiology Data (last 24 hrs): 02/16/24 16:15 Nasopharnyx Influenza Type A Antigen Screen - Final 02/16/24 16:15 Nasopharnyx Influenza Type B Antigen Screen - Final <Sylvia Mcleod - Last Filed: 02/17/24 03:44> Assessment and Plan - Problems (Diagnosis) (1) Acute hypoxic respiratory failure Current Visit: Yes Status: Acute (2) COPD with acute exacerbation Current Visit: No Status: Acute (3) Lumbar compression fracture Current Visit: Yes Status: Chronic Qualifiers: Encounter type: subsequent encounter Lumbar vertebra fracture level: L4 (4) Impaired mobility Current Visit: Yes Status: Acute (5) Moderate protein-calorie malnutrition Current Visit: Yes Status: Acute - Plan Assessment plan Admit to [facility] Pulmonary consult for COPD exacerbation O2 2 L keep sats greater than 92% Nebs, steroids, IV antibiotics, Lumbar compression fracture CT of the lumbar spine without contrast ordered As needed analgesics, PT eval, fall precautions Social service eval for half-way facility due to immobility Full code DVT SCDs Diet regular diet Disposition pending hospital course Discharge Plan: Psychiatry - Advance Directives Does patient have a Living Will: Yes Does patient have a Durable POA for Healthcare: No - Code Status/Comfort Care Code Status: Full Code Critical Care: No Time Spent Managing Pts Care (In Minutes): 55 <Kristen Cody - Last Filed: 02/16/24 18:25> Date of Service: 02/16/24 Patient was seen and examined. Events of the last 24 hours have been noted. Spoke with with RUDY regarding patient's clinical picture after evaluating and examining the patient independently. I performed a substantial part of the MDM during this patient's care today. I personally made or approved the documented management plan and acknowledge its risk of complications. I agree with the findings and documentation provided in the RUDY's notes. Continue with plan of care as mentioned above. MRI pending in the morning. Physical therapy evaluation for half-way facility placement. <Sylvia Mcleod - Last Filed: 02/17/24 03:44>
[2024-02-16] MEDS ORDERED: ONDANSETRON 4 MG/2 ML VIAL IV PRN (17:57)
[2024-02-16] MEDS: METHYLPREDNISOLONE 125 MG INJ IV SCH (18:04)
[2024-02-16] MEDS: ALBUTEROL 2.5 MG/3 ML NEB SOL NEB SCH (19:00)
--- NOTE | 2024-02-16 19:11 | RAD REPORT ---
EXAMINATION: CT LUMBAR SPINE WITHOUT CONTRAST CLINICAL INDICATION: Female, 68 years old. LOWER BACK PAIN TECHNIQUE: Axial CT images were obtained through the lumbar spine in soft tissue and bone windows wit hout intravenous contrast. Coronal and Sagittal reformatted images were created from the data set. One or more of the following dose reduction techniques were used: Automated exposure control, adjustm ent of the mA and/ or kV according to patient size, and/or iterative reconstruction. Unless otherwise specified, incidental findings do not require dedicated imaging follow-up. COMPARISON: No prior exam. FINDINGS: For purposes of this dictation, it is assumed that there are 5 non rib-bearing lumbar type vertebrae, and the most caudal fully segmented lumbar vertebra is labeled L5. ALIGNMENT: Mild dextroscoliosis is seen of the lumbar spine. BONES: Prominent diffuse osteopenia. Multilevel compression deformities are present throughout the vi sualized thoracic and lumbar levels. The most severe compression fracture affects L4 with about 75% loss of vertebral body height. DISCS: Mild disc thinning with endplate osteophytes seen throughout the lumbar spine. LEVELS: Moderate canal narrowing suspected at L4-5. SOFT TISSUE: No soft tissue abnormalities. IMPRESSION: Multilevel compression fractures throughout the spine. The most severe fractures at the L4 level causing moderate central canal narrowing in combination wit h posterior element hypertrophy.
[2024-02-16] MEDS: dexAMETHasone 4 MG/ML VIAL IV SCH (23:25)
[2024-02-16] MEDS: ALPRAZOLAM 0.25 MG TABLET PO PRN (23:25)
[2024-02-17 05:47] VITALS: BMI 18.3
[2024-02-17] MEDS: TRAMADOL HCL 50 MG TAB PO PRN (06:17)
[2024-02-17 06:24] LABS: Absolute Lymphocytes (CBC) 0.3 K/uL (0.7-4.9); Absolute Monocytes 0.3 K/uL (0.1-1.3); Absolute Neutrophil 2.3 K/uL (1.8-8.0); Basophils % 0.2 % (0-1.3); Eosinophils % 0.1 % (0-4.4); Hematocrit 31.5 % (36.0-45.0); Hemoglobin 10.8 g/dL (12.0-15.0); Lymphocytes % 10.6 % (15.3-44.8); MCH 31.3 pg (27.0-35.0); MCHC 34.2 g/dL (32.0-36.0); MCV 91.3 fL (80-100); MPV 9.5 fL (7.6-11.3); Monocytes % 9.1 % (3.3-12.3); Nucleated Red Blood Cells % 0.1 % (0-0); Platelets 217 thou/uL (152-406); RBC Red Blood Cell Count 3.45 M/uL (3.86-4.86); Red Cell Distribution Width 15.3 % (12.1-15.2)
[2024-02-17 06:39] LABS: Anion Gap 10.4 mEq/L (5.0-15.0); Magnesium 2.6 mg/dL (1.6-2.4); Potassium 4.4 mEq/L (3.5-5.1)
[2024-02-17 08:58] LABS: Differential Total Cells Count 100; Segmented Neutrophils 76 % (40-80)
[2024-02-17 08:59] LABS: Blood Morphology Comment NOT SEEN (NOT SEEN); Lymphocytes 13 % (15-42); Monocytes 11 % (0-10); Platelet Estimate ADEQ
[2024-02-17] MEDS: Levofloxacin 750mg IV 750 MG/150 ML BAG IV SCH (10:19)
[2024-02-17] MEDS: LIDOCAINE 4% PATCH TOP SCH (10:20)
[2024-02-17 10:51] LABS: Specific Gravity 1.011 (1.005-1.030); Sqamous Epithelial <5 /HPF (None Seen); Transitional Epithelial <5 /HPF (None Seen); Urine Bacteria None Seen /HPF (<20); Urine Bilirubin NEGATIVE (Negative); Urine Blood Negative (Negative); Urine Clarity Clear (Clear); Urine Color Colorless (Yellow); Urine Culture Reflex Order NOT NEEDED; Urine Glucose 1+ (Negative); Urine Ketones TRACE (Negative); Urine Microscopic Reflex YN ORDER UMIC; Urine Mucus Slight /HPF (None Seen); Urine Nitrite NEGATIVE (Negative); Urine Protein NEGATIVE (Negative); Urine RBC <5 /HPF (None Seen); Urine Urobilinogen Normal (Normal); Urine WBC <5 /HPF (<5); Urine pH 6.5 (5.0-7.0)
--- NOTE | 2024-02-17 13:06 | RAD REPORT ---
EXAMINATION: MRI LUMBAR SPINE WITHOUT CONTRAST CLINICAL INDICATION: Radiculopathy, bilateral leg weakness TECHNIQUE: Multiplanar multisequence MR images were obtained of the lumbar spine without intravenous contrast. Unless otherwise specified, incidental findings do not require dedicated imaging follow-up. [id number]. COMPARISON: CT February 16, 2024. FINDINGS: For purposes of this dictation, it is assumed that there are 5 non rib-bearing lumbar type vertebrae, and the most caudal fully segmented lumbar vertebra is labeled L5. Mild compression fracture superior vertebral endplate L1. Signal characteristics indicate that it samuel ears late subacute. Mild to moderate compression fracture L2 vertebral body. It has signal characteristics to indicate th at it appears acute. Moderate compression fracture L3 vertebral body appears chronic. Moderate to marked compression fracture L4 vertebral body estimated 75% compression. It appears chron ic.. Posterior bony protrusion into the spinal canal along the superior vertebral endplate of L4 is present. In addition there is disc bulge, ligamentum flavum and facet hypertrophy. Moderate central s lavern stenosis is present. Mild to moderate narrowing of the neural foramina bilaterally. Moderate compression fracture L5 vertebral body appears chronic. Disc bulge, ligamentum flavum and facet hypertrophy L4-5 results in moderate central spinal stenosis IMPRESSION: Moderate to marked chronic appearing compression fracture L4 vertebral body in combination with spond ylosis L3-4 result in moderate central spinal stenosis. Acute mild to moderate compression fracture L2 vertebral body Spondylosis L4-5 results in moderate central spinal stenosis
--- NOTE | 2024-02-17 13:07 | RAD REPORT ---
EXAMINATION: Thoracic Spine Wo Contr CLINICAL INDICATION: Radiculopathy/back pain/lower extremity weakness TECHNIQUE: Multiplanar multisequence MR images were obtained of the thoracic spine without intravenou s contrast. Unless otherwise specified, incidental findings do not require dedicated imaging follow-up. [id number]. COMPARISON: None FINDINGS: 1.1 cm area of low signal on T1 and high signal on T2-weighted sequences is present within the T2 sterling tebral body. Moderate compression fracture T7 vertebral body.. It has signal characteristics to indicate that it i s probably late subacute to chronic. Mild compression fracture T10 vertebral body has abnormal signal to indicate that it probably is rela tively acute. Mild compression fracture T12 vertebral body. It has signal characteristics which indicate that it pr obably is subacute. No significant retropulsion of fracture fragment into the spinal canal seen. Spinal cord is normal caliber and signal. IMPRESSION: Mild compression fracture T10 vertebral body appears acute. Mild compression fracture T12 vertebral body appears subacute 1.1 cm area of abnormal signal within the T2 vertebral body could represent a benign lesion or metast asis. No significant retropulsion of fracture fragments into the spinal canal. Spinal cord appears normal in size and signal
--- NOTE | 2024-02-17 18:17 | P.PN ---
Date of Service: 02/17/24 subjective Thoracic lumbar compression fractures, mobility, PT to eval Review of Systems 10-point ROS is otherwise unremarkable Physical Examination - Physical Exam vitals Reviewed Physical General: resting with eyes closed, responds to verbal HEENT: Atraumatic, Normocephalic Respiratory: Diminished, unlabored Cardiovascular: Regular rate/rhythm, Normal S1 S2 Capillary refill: <2 Seconds, Gastrointestinal: Soft and benign, nontender Musculoskeletal: Polyarthritic joint pain, Neurological: Normal speech, moderate to severe generalized weakness Assessment and Plan - Plan Review of Systems 10-point ROS is otherwise unremarkable General: As per HPI Physical Examination - Physical Exam General: Alert, Oriented x3, Mild distress, Other (Frail) HEENT: Atraumatic, Normocephalic, PERRLA Respiratory: Clear to auscultation bilaterally, Normal air movement Cardiovascular: Normal pulses, Regular rate/rhythm, Normal S1 S2 Gastrointestinal: Normal bowel sounds, Soft and benign Musculoskeletal: No clubbing, No swelling, Other (moderate generalized weakness with impaired mobility) Integumentary: No breakdown, No significant lesion, Other (Bilateral upper extremity bruising) Neurological: Normal speech, Abnormal gait, Abnormal strength Assessment and Plan - Problems (Diagnosis) (1) Acute hypoxic respiratory failure Current Visit: Yes Status: Acute (2) COPD with acute exacerbation Current Visit: No Status: Acute (3) thoracic and lumbar compression fracture Current Visit: Yes Status: Chronic Qualifiers: Encounter type: subsequent encounter Lumbar vertebra fracture level: L4 (4) Impaired mobility Current Visit: Yes Status: Acute (5) Moderate protein-calorie malnutrition Current Visit: Yes Status: Acute - Plan Assessment plan Admit to [facility] Pulmonary consult for COPD exacerbation O2 2 L keep sats greater than 92% Nebs, steroids, IV antibiotics, Lumbar compression fracture MRI of the lumbar spine IMPRESSION: Moderate to marked chronic appearing c ompression fracture L4 vertebral body in combination with spondylosis L3-4 result in moderate central spinal stenosis.Acute mild to moderate compression fracture L2 vertebral bodySpondylosis L4-5 results in moderate central spinal stenosis thoracic spine MRI Mild compression fracture T10 vertebral body appears acute. Mild compression fracture T12 vertebral body appears subacute 1.1 cm area of abnormal signal within the T2 vertebral body could represent a benign lesion or metastasis CT of the lumbar spine without contrast ordered As needed analgesics, PT eval, fall precautions Social service eval for long term facility due to immobility Full code DVT SCDs Diet regular diet Disposition pending hospital course, long term facility after discharge with PT Discharge Plan: Psychiatry - Advance Directives Does patient have a Living Will: Yes Does patient have a Durable POA for Healthcare: No - Code Status/Comfort Care Code Status: Full Code Critical Care: No Time Spent Managing Pts Care (In Minutes): 35
[2024-02-17] MEDS: ACETAMINOPHEN 325 MG TABLET PO PRN (21:33)
[2024-02-18 05:47] LABS: Absolute Basophils 0.1 K/uL (0-0.5); Absolute Lymphocytes (CBC) 1.5 K/uL (0.7-4.9); Absolute Monocytes 0.9 K/uL (0.1-1.3); Absolute Neutrophil 4.7 K/uL (1.8-8.0); Basophils % 0.8 % (0-1.3); Eosinophils % 0.5 % (0-4.4); Hematocrit 32.1 % (36.0-45.0); Hemoglobin 10.6 g/dL (12.0-15.0); Lymphocytes % 21.3 % (15.3-44.8); MCH 30.3 pg (27.0-35.0); MCHC 32.9 g/dL (32.0-36.0); MCV 92.1 fL (80-100); MPV 10.1 fL (7.6-11.3); Monocytes % 12.8 % (3.3-12.3); Neutrophils % 64.6 % (41.7-73.7); Nucleated Red Blood Cells % 0.1 % (0-0); Platelets 204 thou/uL (152-406); RBC Red Blood Cell Count 3.48 M/uL (3.86-4.86); Red Cell Distribution Width 15.8 % (12.1-15.2)
[2024-02-18 05:50] LABS: Anion Gap 7.9 mEq/L (5.0-15.0); Magnesium 2.5 mg/dL (1.6-2.4); Potassium 3.9 mEq/L (3.5-5.1)
[2024-02-18] MEDS: POTASSIUM CL SA 10 MEQ TAB PO ONE (08:31)
--- NOTE | 2024-02-18 13:14 | P.PN ---
Date of Service: 02/18/24 Subjective Pt states she is doing ok. Nursing states she is remarkably independent but non ambulatory Review of Systems 10-point ROS is otherwise unremarkable vitals Reviewed Physical Examination - Physical Exam General: Alert, Oriented x3, Mild distress, Other (Frail) HEENT: Atraumatic, Normocephalic, PERRLA Respiratory: Clear to auscultation bilaterally, Normal air movement Cardiovascular: Normal pulses, Regular rate/rhythm, Normal S1 S2 Gastrointestinal: Normal bowel sounds, Soft and benign Musculoskeletal: No clubbing, No swelling, Other (moderate generalized weakness with impaired mobility) Integumentary: No breakdown, No significant lesion, Other (Bilateral upper extremity bruising) Neurological: Normal speech, Abnormal gait, Abnormal strength Assessment and Plan - Problems (Diagnosis) (1) Acute hypoxic respiratory failure Current Visit: Yes Status: Acute (2) COPD with acute exacerbation Current Visit: No Status: Acute (3) thoracic and lumbar compression fracture Current Visit: Yes Status: Chronic Qualifiers: Encounter type: subsequent encounter Lumbar vertebra fracture level: L4 (4) Impaired mobility Current Visit: Yes Status: Acute (5) Moderate protein-calorie malnutrition Current Visit: Yes Status: Acute - Plan Assessment plan Admit to [facility] Pulmonary consult for COPD exacerbation O2 2 L keep sats greater than 92% Nebs, steroids, IV antibiotics, Lumbar compression fracture MRI of the lumbar spine IMPRESSION: Moderate to marked chronic appearing compression fracture L4 vertebral body in combination with spondylosis L3-4 result in moderate central spinal stenosis.Acute mild to moderate compression fracture L2 vertebral bodySpondylosis L4-5 results in moderate central spinal stenosis thoracic spine MRI Mild compression fracture T10 vertebral body appears acute. Mild compression fracture T12 vertebral body appears subacute 1.1 cm area of abnormal signal within the T2 vertebral body could represent a benign lesion or metastasis CT of the lumbar spine without contrast ordered As needed analgesics, PT eval, fall precautions Social service eval for [facility] facility due to immobility Full code DVT SCDs Diet regular diet Disposition pending hospital course, IPR vs with PT Discharge Plan: 1-2 days - Advance Directives Does patient have a Living Will: Yes Does patient have a Durable POA for Healthcare: No - Code Status/Comfort Care Code Status: Full Code Critical Care: No Time Spent Managing Pts Care (In Minutes): 35 <Alexandria Vela - Last Filed: 02/18/24 13:10> Patient does not have any spinal cord compression clinically, She has 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 Her back pain seems to be controlled on current pain medication, I do not believe patient will benefit from vertebroplasty or surgical intervention. <ARELIS Hudson - Last Filed: 02/18/24 16:08>
--- NOTE | 2024-02-18 13:45 | P.PN ---
Date of Service: 02/18/24 - Plan Dr. Vasquez was apparantly consulted from someone new to this facility. He does not see/operate on the spine. Consult was cancelled and he did not see Ms. Man and was not involved in her care.
[2024-02-19 06:07] LABS: Magnesium 2.4 mg/dL (1.6-2.4)
[2024-02-19 06:21] LABS: Absolute Basophils 0.1 K/uL (0-0.5); Absolute Eosinophils 0.1 K/uL (0-0.5); Absolute Monocytes 0.8 K/uL (0.1-1.3); Absolute Neutrophil 2.7 K/uL (1.8-8.0); Basophils % 1.2 % (0-1.3); Eosinophils % 2.3 % (0-4.4); Hematocrit 33.8 % (36.0-45.0); Hemoglobin 11.3 g/dL (12.0-15.0); Lymphocytes % 34.8 % (15.3-44.8); MCH 30.7 pg (27.0-35.0); MCHC 33.5 g/dL (32.0-36.0); MCV 91.7 fL (80-100); MPV 9.2 fL (7.6-11.3); Monocytes % 13.8 % (3.3-12.3); Neutrophils % 47.9 % (41.7-73.7); Nucleated Red Blood Cells % 0.2 % (0-0); Platelets 231 thou/uL (152-406); RBC Red Blood Cell Count 3.69 M/uL (3.86-4.86)
[2024-02-19 10:00] VITALS: O2SAT 98
[2024-02-19] MEDS ORDERED: levoFLOXacin 500 MG TAB PO SCH (10:22)
--- NOTE | 2024-02-19 13:20 | P.PN ---
Date of Service: 02/18/24 Subjective Pt states she is doing ok. She is looking over [facility] facilities and would like to return to [facility] Review of Systems 10-point ROS is otherwise unremarkable vitals Reviewed Physical Examination - Physical Exam General: Alert, Oriented x3, Mild distress, Other (Frail) HEENT: Atraumatic, Normocephalic, PERRLA Respiratory: Clear to auscultation bilaterally, Normal air movement Cardiovascular: Normal pulses, Regular rate/rhythm, Normal S1 S2 Gastrointestinal: Normal bowel sounds, Soft and benign Musculoskeletal: No clubbing, No swelling, Other (moderate generalized weakness with impaired mobility) Integumentary: No breakdown, No significant lesion, Other (Bilateral upper extremity bruising) Neurological: Normal speech, Abnormal gait, Abnormal strength Assessment and Plan - Problems (Diagnosis) (1) Acute hypoxic respiratory failure Current Visit: Yes Status: Acute (2) COPD with acute exacerbation Current Visit: No Status: Acute (3) thoracic and lumbar compression fracture Current Visit: Yes Status: Chronic Qualifiers: Encounter type: subsequent encounter Lumbar vertebra fracture level: L4 (4) Impaired mobility Current Visit: Yes Status: Acute (5) Moderate protein-calorie malnutrition Current Visit: Yes Status: Acute - Plan Assessment plan Admit to [facility] Pulmonary consult for COPD exacerbation O2 2 L keep sats greater than 92% Nebs, steroids, IV antibiotics, - IV abx change to po Levaquin x 2 additional days (5 day course) Lumbar compression fracture MRI of the lumbar spine IMPRESSION: Moderate to marked chronic appearing compression fracture L4 vertebral body in combination with spondylosis L3-4 result in moderate central spinal stenosis.Acute mild to moderate compression fracture L2 vertebral bodySpondylosis L4-5 results in moderate central spinal stenosis thoracic spine MRI Mild compression fracture T10 vertebral body appears acute. Mild compression fracture T12 vertebral body appears subacute 1.1 cm area of abnormal signal within the T2 vertebral body could represent a benign lesion or metastasis No new weakness or pain or disability. Lives alone with two cats. Could benefit from IPR prior to independence. Would be interested in going back to [facility]. CT of the lumbar spine without contrast ordered As needed analgesics, PT eval, fall precautions - doing well Social service eval for senior living facility due to immobility - Pt chose [facility] and insurance auth has been submitted. Full code DVT SCDs Diet regular diet Disposition pending hospital course, IPR Discharge Plan: 1-2 days - Advance Directives Does patient have a Living Will: Yes Does patient have a Durable POA for Healthcare: No - Code Status/Comfort Care Code Status: Full Code Critical Care: No Time Spent Managing Pts Care (In Minutes): 35
--- NOTE | 2024-02-19 16:37 | P.DS ---
Admission Date: 02/16/24 Discharge Date: 02/19/24 Disposition: TRANSFER TO INPATIENT REHAB Discharge Condition: GOOD Reason for Admission: COPD exacerbation, impaired mobility Consultations: Dr. Ballard, Pulmonology Brief History of Present Illness: 68-year-old female with a past medical history bilateral breast cancer; Chronic obstructive lung disease; Endometriosis of vagina; Hypothyroidism presents to the emergency room with shortness of breath. She reports shortness of breath started 2 days ago, getting progressively worse. She reports having to use increased amount of oxygen at home, unable to catch her breath. She reports productive cough, she reports taking albuterol nebulizer that is ineffective. She reports fci immobility, with a recent lumbar compression fracture and some chronic thoracic fractures. She reports she sits in her wheelchair, unable to ambulate, but is able to independently transfer. She reports living alone, wearing a diaper. No reported fever, chest pain, nausea vomiting, diarrhea, or edema. We plan to admit for COPD exacerbation and lumbar compression fracture with immobility. Hospital Course: (1) Acute hypoxic respiratory failure Current Visit: Yes Status: Acute resolved (2) COPD with acute exacerbation Current Visit: No Status: Acute Consult with Pulmonology She had levaquin IV daily. She will need two additional days of po Levaquin 500mg O2 prn (3) thoracic and lumbar compression fracture Current Visit: Yes Status: Chronic Qualifiers: Encounter type: subsequent encounter Lumbar vertebra fracture level: L4 no need for vertebroplasty at this time MRI of the lumbar spine IMPRESSION: Moderate to marked chronic appearing compression fracture L4 vertebral body in combination with spondylosis L3-4 result in moderate central spinal stenosis.Acute mild to moderate compression fracture L2 vertebral body, Spondylosis L4-5 results in moderate central spinal stenosis thoracic spine MRI Mild compression fracture T10 vertebral body appears acute. Mild compression fracture T12 vertebral body appears subacute 1.1 cm area of abnormal signal within the T2 vertebral body could represent a benign lesion or metastasis (4) Impaired mobility Current Visit: Yes Status: Chronic (5) Moderate protein-calorie malnutrition Current Visit: Yes Status: Acute Ms. Man has done quite well over the course of her hospitalization. She works well with physical therapy. She has not been having shortness of breath. Her pain seems to be manageable. She could use some help with inpatient rehab so she can optimize nutritional needs and have some strengthening/increased mobility. She chose to return to [facility] for inpatient rehab. Vital Signs/Physical Exam: Temp Pulse Resp BP Pulse Ox 97.0 F 87 18 95/45 L 94 02/19/24 12:00 02/19/24 12:00 02/19/24 12:00 02/19/24 12:00 02/19/24 12:00 General: Alert, In no apparent distress, Oriented x3 HEENT: Atraumatic, Normocephalic Neck: Supple Respiratory: Normal air movement Cardiovascular: Normal pulses, Regular rate/rhythm, Normal S1 S2 Capillary refill: <2 Seconds Gastrointestinal: Normal bowel sounds Musculoskeletal: Other (thin, frail, non-ambulatory, transfers at home and in hospital) Integumentary: No rashes Neurological: Normal speech, Normal tone, Normal affect Lymphatics: No axilla or inguinal lymphadenopathy External genitalia: Deferred Rectal: Deferred Laboratory Data at Discharge: WBC 5.70 thou/uL (4.3-10.9) 02/19/24 06:12 Hgb 11.3 g/dL (12.0-15.0) L 02/19/24 06:12 Hct 33.8 % (36.0-45.0) L 02/19/24 06:12 Plt Count 231 thou/uL (152-406) 02/19/24 06:12 PT 11.9 SECONDS (9.4-12.5) 02/16/24 16:42 INR 1.06 02/16/24 16:42 Sodium 137 mEq/L (136-145) 02/19/24 05:37 Potassium 4.0 mEq/L (3.5-5.1) 02/19/24 05:37 BUN 18 mg/dL (7-18) 02/19/24 05:37 Creatinine 0.71 mg/dL (0.55-1.02) 02/19/24 05:37 Glucose 87 mg/dL (74-106) 02/19/24 05:37 Magnesium 2.4 mg/dL (1.6-2.4) 02/19/24 05:37 Total Bilirubin 0.7 mg/dL (0.2-1.0) 02/16/24 16:42 AST 34 U/L (15-37) 02/16/24 16:42 ALT 24 U/L (13-56) 02/16/24 16:42 Alkaline Phosphatase 104 U/L (45-117) 02/16/24 16:42 Home Medications: Levalbuterol [Xopenex*] 1.25 mg NEB TID 04/02/23 Thyroid,Pork [[place] Thyroid] 60 mg PO DAILY 04/02/23 clonazePAM [Clonazepam] 1 mg PO BEDTIME 04/02/23 Albuterol Inhaler [Ventolin Inhaler*] 2 puff IH Q6H 06/11/23 Acetaminophen [Tylenol] 1,000 mg PO PRN 02/16/24 Lidocaine [Lidocaine Pain Relief] 1 each TP PRN 02/16/24 Melatonin 10 mg PO PRN 02/16/24 levoFLOXacin [Levaquin*] 500 mg PO DAILY #2 tab 02/19/24 traMADol HCL [Ultram*] 100 mg PO Q6H PRN #15 tab 02/19/24 New Medications: levoFLOXacin [Levaquin*] 500 mg PO DAILY #2 tab traMADol HCL [Ultram*] 100 mg PO Q6H PRN #15 tab PRN Reason: Pain Scale 5-7 (Moderate) Diet: Regular Activity: Fall precautions Followup: Thomas Tamayo MD [Primary Care Provider] -
[2024-02-19] MEDS ORDERED: ALBUTEROL 2.5 MG/3 ML NEB SOL NEB SCH (19:00)
[2024-02-19 21:25] VITALS: BP 120/43; TEMP 98.2
== END 2024-02-19 22:05 | DRG 189 ==
LOC: ER 15:51 → ERHOLD 17:52 → 2ND 20:06
PROVIDERS: ADMIT Hospitalist; ATTEND Internal Medicine
DX: J96.01 Acute respiratory failure with hypoxia (principal); J44.1 Chronic obstructive pulmonary disease with (acute) exacerbation; Z68.1 Body mass index [BMI] 19.9 or less, adult; E44.0 Moderate protein-calorie malnutrition; J06.9 Acute upper respiratory infection, unspecified; E03.9 Hypothyroidism, unspecified; M80.88XD Other osteoporosis with current pathological fracture, vertebra(e), subsequent encounter for fracture with routine healing; Z88.5 Allergy status to narcotic agent; Z60.2 Problems related to living alone; Z85.3 Personal history of malignant neoplasm of breast; Z11.52 Encounter for screening for COVID-19; Z90.49 Acquired absence of other specified parts of digestive tract; Z99.81 Dependence on supplemental oxygen; Z90.13 Acquired absence of bilateral breasts and nipples; Z79.899 Other long term (current) drug therapy; Z91.048 Other nonmedicinal substance allergy status
CPT/HCPCS: 36415; 71045; 72131; 72146; 72148; 80048; 80076; 81001; 83605; 83735; 83880; 84484; 85025; 85610; 87040; 87804; 87811; 94760; 96365; 96366; 96368; 97110; 97161; 97530; 99285; J1100; J2003; J3475; J7030; J7613; J7614

== ENCOUNTER 2024-03-26 16:26 | Emergency (ER) | payer OTHER ==
[2024-03-26] MEDS ORDERED: METHYLPREDNISOLONE 40 MG INJ ONE (17:56)
[2024-03-26] MEDS ORDERED: ALBUTEROL 2.5 MG/3 ML NEB SOL ONE (17:56)
[2024-03-26] MEDS ORDERED: IPRATROPIUM BROM 0.5MG/2.5ML ONE (17:56)
--- NOTE | 2024-03-26 17:58 | RAD REPORT ---
EXAMINATION: ONE VIEW CHEST XR CLINICAL INDICATION: SOB TECHNIQUE: Frontal chest projection is submitted. Examination is limited by patient positioning and t echnique. COMPARISON: 02/16/2024 FINDINGS: The lungs are diffusely emphysematous but grossly clear. The heart is normal in size. No displaced fr actures identified. IMPRESSION: COPD without an acute process suspected.
[2024-03-26 18:03] LABS: SARS-CoV-2 Antigen CONTROL BLUE LINE VIS/BG OK; SARS-CoV-2 Antigen Rapid Res Negative (Negative)
[2024-03-26 18:47] LABS: Albumin 3.3 g/dL (3.4-5.0); Bilirubin Direct 0.2 mg/dL (0-0.2); Bilirubin Indirect, Calculated 0.4 mg/dL (0.2-0.8); Bilirubin Total 0.6 mg/dL (0.2-1.0); Globulin 3.2 g/dL (2.3-3.5); Magnesium 2.3 mg/dL (1.6-2.4); Protein, Total 6.5 g/dL (6.4-8.2); Troponin High Sensitivity 3.4 pg/mL (<58.9)
[2024-03-26 18:54] LABS: Absolute Basophils 0.1 K/uL (0-0.5); Absolute Eosinophils 0.2 K/uL (0-0.5); Absolute Lymphocytes (CBC) 1.3 K/uL (0.7-4.9); Absolute Monocytes 0.8 K/uL (0.1-1.3); Absolute Neutrophil 3.8 K/uL (1.8-8.0); Basophils % 1.2 % (0-1.3); Eosinophils % 2.7 % (0-4.4); Hematocrit 38.2 % (36.0-45.0); Hemoglobin 12.7 g/dL (12.0-15.0); Lymphocytes % 21.7 % (15.3-44.8); MCH 31.1 pg (27.0-35.0); MCHC 33.3 g/dL (32.0-36.0); MCV 93.4 fL (80-100); MPV 10.4 fL (7.6-11.3); Neutrophils % 61.4 % (41.7-73.7); Nucleated Red Blood Cells % 0.1 % (0-0); Platelets 204 thou/uL (152-406); RBC Red Blood Cell Count 4.09 M/uL (3.86-4.86); Red Cell Distribution Width 14.4 % (12.1-15.2)
[2024-03-26 19:23] LABS: PT Prothrombin Time 12.1 SECONDS (9.4-12.5); Protime INR 1.08
--- NOTE | 2024-03-26 20:03 | ER ---
Nurse's Notes [facility] Name: Gisell Man Age: 68 yrs Sex: Female : 1955 Arrival Date: 03/26/2024 Time: 16:26 Bed 14 Private MD: Diagnosis: COPD/ Chronic obstructive pulmonary disease with (acute) exacerbation Presentation: 03/26 16:39 Chief complaint: EMS states: Called to patient's home for shortness of breath onset cm10 yesterday. Pt reports that she has been more short of breath and had an episode of bilateral ear pain yesterday. Pt presented on 3L via NC which is her normal. Coronavirus screen: Client denies travel out of the [place] in the last 14 days. Ebola Screen: Patient denies travel to an Ebola-affected area in the 21 days before illness onset. No symptoms or risks identified at this time. Initial Sepsis Screen: Does the patient meet any 2 criteria? HR > 90 bpm. Does the patient have a suspected source of infection? No. Patient's initial sepsis screen is negative. Risk Assessment: Do you want to hurt yourself or someone else? Patient reports no desire to harm self or others. Onset of symptoms was March 25, 2024. 16:39 Method Of Arrival: EMS: [facility] cm10 16:39 Acuity: TOMMY 3 cm10 Triage Assessment: 16:42 General: Appears in no apparent distress. comfortable, Behavior is calm, cooperative. cm10 Pain: Complains of pain in right arm. Neuro: No deficits noted. Level of Consciousness is awake, alert, obeys commands, Oriented to person, place, time, situation, Appropriate for age. Respiratory: No deficits noted. Reports shortness of breath Airway is patent Respiratory effort is even, unlabored, Respiratory pattern is regular, symmetrical, Breath sounds are diminished bilaterally. Onset: The symptoms/episode began/occurred yesterday, the patient has mild shortness of breath. Historical: - Allergies: 16:41 Adhesives; cm10 16:41 Codeine; cm10 16:41 Iodine; cm10 - PMHx: 16:41 bilateral breast cancer; Chronic obstructive lung disease; Endometriosis of vagina; cm10 Hypothyroidism; - PSHx: 16:41 Cholecystectomy; Tonsillectomy; cm10 - Immunization history:: Adult Immunizations up to date. - Infectious Disease History:: Denies. - Social history:: Smoking status: Patient denies any tobacco usage or history of. Screenin:45 [facility] ED Fall Risk Assessment (Adult) History of falling in the last 3 months, cm10 including since admission No falls in past 3 months (0 pts) Confusion or Disorientation No (0 pts) Intoxicated or Sedated No (0 pts) Impaired Gait No (0 pts) Mobility Assist Device Used No (0 pt) Altered Elimination No (0 pt) Score/Fall Risk Level 0 - 2 = Low Risk Oriented to surroundings, Maintained a safe environment, Hourly rounding (assess needs \T\ fall precautionary measures) done. Abuse screen: Denies threats or abuse. Denies injuries from another. Nutritional screening: No deficits noted. Tuberculosis screening: No symptoms or risk factors identified. Assessment: 18:45 Reassessment: Patient appears in no apparent distress at this time. No changes from cm10 previously documented assessment. Patient and/or family updated on plan of care and expected duration. Pain level reassessed. Patient is alert, oriented x 3, equal unlabored respirations, skin warm/dry/pink. 20:21 Cardiovascular: Rhythm is sinus rhythm. kj2 20:22 Reassessment: Patient appears in no apparent distress at this time. Patient and/or kj2 family updated on plan of care and expected duration. Pain level reassessed. Patient is alert, oriented x 3, equal unlabored respirations, skin warm/dry/pink. Vital Signs: 16:39 BP 104 / 55; Pulse 92; Resp 14; Temp 98.2(O); Pulse Ox 100% on 3 lpm NC; Weight 39.46 cm10 kg (M); Height 5 ft. 0 in. ; Pain 5/10; 17:00 BP 112 / 50; Pulse 90; Resp 15; Pulse Ox 99% on 3 lpm NC; cm10 17:30 BP 116 / 53; Pulse 86; Resp 15; Pulse Ox 100% on 3 lpm NC; cm10 18:00 BP 109 / 50; Pulse 87; Resp 16; Pulse Ox 100% on 3 lpm NC; cm10 20:22 BP 121 / 64; Pulse 91; Resp 18; Temp 98; Pulse Ox 97% on R/A; kj2 16:39 Body Mass Index 16.99 (39.46 kg, 152.4 cm) cm10 16:39 Pain Scale: Adult cm10 ED Course: 16:28 Patient arrived in ED. cm10 16:35 Rivas [facility]idales [facility]. cp 16:35 William Paez MD is Attending Physician. cp 16:39 Heidi Shea, ALLA is Primary Nurse. cm10 16:41 Triage completed. cm10 16:41 Arm band placed on right wrist. Patient placed in an exam room, on a stretcher, on cm10 oxygen, on clinical research monitor, on pulse oximetry. 16:45 Patient has correct armband on for positive identification. Bed in low position. Call cm10 light in reach. Side rails up X2. Provided Education on: ER process and procedures.. Client placed on continuous cardiac and pulse oximetry monitoring. NIBP monitoring applied. monitoring and evaluation advisor on. 17:50 COVID swab sent to lab. Flu and/or RSV swab sent to lab. tolerated well. nh2 17:52 XRAY Chest (1 view) In Process Unspecified. EDMS 18:18 Basic Metabolic Panel Sent. cm10 18:18 CBC with Diff Sent. cm10 18:18 LFT's Sent. cm10 18:18 Magnesium Sent. cm10 18:18 NT PRO-BNP Sent. cm10 18:18 PT-INR Sent. cm10 18:18 Troponin HS Sent. cm10 18:18 Initial lab(s) drawn, by me, sent to lab. EKG done, by ED staff, reviewed by Rivas Vidales cmSocorro CASTELLANOS. Inserted saline lock: 22 gauge in left antecubital area, using aseptic technique. Blood collected. Flushed with 10 mL NS. 20:21 No provider procedures requiring assistance completed. IV discontinued, intact, kj2 bleeding controlled, No redness/swelling at site. Pressure dressing applied. Administered Medications: 18:18 Drug: DuoNeb Nebulize (2.5 mg - 0.5 mg) 3 ml Nebulizer once Route: Nebulizer; cm10 20:38 Follow up: Response: No adverse reaction kj2 18:18 Drug: MethylPrednisoLONE IVP 80 mg IVP once Route: IVP; Site: left antecubital; cm10 20:38 Follow up: Response: No adverse reaction kj2 Medication: 20:21 VIS not applicable for this client. kj2 Outcome: 20:02 Discharge ordered by . cp 20:22 Discharged to home ambulatory, kj2 20:22 Condition: stable 20:22 Discharge instructions given to patient, Instructed on discharge instructions, follow up and referral plans. medication usage, Demonstrated understanding of instructions, follow-up care, medications, Prescriptions given X 1, 20:39 Patient left the ED. kj2 Signatures: Dispatcher [employer] EDMS Rivas Vidales PA PA cp Martinez, Clarissa RN RN cm10 Tanisha Russo RN RN kj2 [place], [facility]
--- NOTE | 2024-03-26 20:03 | EDPHYS ---
Physician Documentation [facility] Name: Gisell Man Age: 68 yrs Sex: Female : 1955 Arrival Date: 03/26/2024 Time: 16:26 Bed 14 Private MD: ED Physician William Paez HPI: 03/26 17:15 This 68 yrs old Female presents to ER via EMS with complaints of Shortness Of Breath. cp 17:15 The patient has shortness of breath at rest. Onset: The symptoms/episode began/occurred cp yesterday. 17:15 Duration: The symptoms are continuous, and are steadily getting worse. Associated signs cp and symptoms: Pertinent negatives: chest pain, productive cough, diaphoresis, fever, vomiting. Patient on home oxygen and reports increasing shortness of breath since yesterday. Denies fever, sore throat, chills, cough. Historical: - Allergies: 16:41 Adhesives; cm10 16:41 Codeine; cm10 16:41 Iodine; cm10 - PMHx: 16:41 bilateral breast cancer; Chronic obstructive lung disease; Endometriosis of vagina; cm10 Hypothyroidism; - PSHx: 16:41 Cholecystectomy; Tonsillectomy; cm10 - Immunization history:: Adult Immunizations up to date. - Infectious Disease History:: Denies. - Social history:: Smoking status: Patient denies any tobacco usage or history of. ROS: 17:20 Respiratory: Positive for shortness of breath, at rest. cp 17:20 Cardiovascular: Negative for chest pain, edema, cp 17:20 Eyes: Negative for injury, pain, redness, and discharge, cp 17:20 Constitutional: Negative for body aches, chills, fever, poor PO intake, 17:20 ENT: Negative for drainage from ear(s), ear pain, sore throat, difficulty swallowing, difficulty handling secretions, 17:20 Abdomen/GI: Negative for abdominal pain, vomiting, diarrhea, constipation, 17:20 : Negative for urinary symptoms, 17:20 Neuro: Negative for altered mental status, dizziness, loss of consciousness, syncope, weakness, 17:20 All other systems are negative, Exam: 17:25 Constitutional: The patient appears in no acute distress, alert, awake, cp non-diaphoretic, non-toxic, well developed, well nourished, 17:25 Head/Face: Normocephalic, atraumatic. cp 17:25 Eyes: Periorbital structures: appear normal, Conjunctiva: normal, no exudate, no injection, Sclera: no appreciated abnormality, Lids and lashes: appear normal, bilaterally, 17:25 ENT: External ear(s): are unremarkable, Ear canal(s): are normal, clear, TM's: dullness, bilaterally, Nose: is normal, Mouth: Lips: moist, Oral mucosa: moist, Posterior pharynx: Airway: no evidence of obstruction, patent, 17:25 Neck: ROM/movement: is normal, is supple, without pain, no range of motions limitations, 17:25 Chest/axilla: Inspection: normal, 17:25 Cardiovascular: Rate: normal, Rhythm: regular, Edema: is not appreciated, JVD: is not appreciated, 17:25 Respiratory: the patient does not display signs of respiratory distress, Respirations: labored breathing, that is mild, intercostal retractions, are absent, Breath sounds: decreased breath sounds, that are mild, throughout, stridor, is not appreciated, wheezing: is not appreciated, 17:25 Abdomen/GI: Inspection: abdomen appears normal, Palpation: abdomen is soft and non-tender, in all quadrants, 17:25 Neuro: Orientation: to person, place \T\ time. Mentation: is normal, 17:58 ECG was reviewed by the Attending Physician. cp Vital Signs: 16:39 BP 104 / 55; Pulse 92; Resp 14; Temp 98.2(O); Pulse Ox 100% on 3 lpm NC; Weight 39.46 cm10 kg (M); Height 5 ft. 0 in. ; Pain 5/10; 17:00 BP 112 / 50; Pulse 90; Resp 15; Pulse Ox 99% on 3 lpm NC; cm10 17:30 BP 116 / 53; Pulse 86; Resp 15; Pulse Ox 100% on 3 lpm NC; cm10 18:00 BP 109 / 50; Pulse 87; Resp 16; Pulse Ox 100% on 3 lpm NC; cm10 20:22 BP 121 / 64; Pulse 91; Resp 18; Temp 98; Pulse Ox 97% on R/A; kj2 16:39 Body Mass Index 16.99 (39.46 kg, 152.4 cm) cm10 16:39 Pain Scale: Adult cm10 MDM: 16:35 Medical Screening Exam initiated cp 18:00 Differential diagnosis: Anxiety Reaction Bronchitis CHF exacerbation, Chronic cp Obstructive Pulmonary Disease Myocardial Infarction pneumonia, Pneumothorax pulmonary edema, Pulmonary Embolism Sepsis Unstable Angina. 20:01 Data reviewed: vital signs, nurses notes, lab test result(s), EKG, radiologic studies, cp plain films, and as a result, I will discharge patient. 20:01 Antibiotic administration: Not indicated, the patient does not have an appreciated cp infiltrate. I considered the following discharge prescriptions or medication management in the emergency department Medications were administered in the Emergency Department. See MAR. Care significantly affected by the following chronic conditions: Chronic Obstructive Pulmonary Disease. Counseling: I had a detailed discussion with the patient and/or guardian regarding the historical points, exam findings, and any diagnostic results supporting the discharge/admit diagnosis, lab results, radiology results, to return to the emergency department if symptoms worsen or persist or if there are any questions or concerns that arise at home. Response to treatment: the patient's symptoms have markedly improved after treatment, and as a result, I will discharge patient. 03/26 17:10 Order name: Basic Metabolic Panel; Complete Time: 19:20 cp 03/26 17:10 Order name: CBC with Diff; Complete Time: 19:20 cp 03/26 17:10 Order name: LFT's; Complete Time: 19:20 cp 03/26 17:10 Order name: Magnesium; Complete Time: 19:20 cp 03/26 17:10 Order name: NT PRO-BNP; Complete Time: 19:20 cp 03/26 17:10 Order name: PT-INR; Complete Time: 19:33 cp 03/26 17:10 Order name: Troponin HS; Complete Time: 19:20 cp 03/26 19:20 Interpretation: Reviewed. 03/26 17:10 Order name: Influenza Screen (a \T\ B); Complete Time: 19:20 cp 03/26 17:10 Order name: SARS RAPID; Complete Time: 19:20 cp 03/26 19:21 Interpretation: Reviewed. 03/26 17:10 Order name: XRAY Chest (1 view); Complete Time: 19:20 cp 03/26 17:10 Order name: Cardiac monitoring; Complete Time: 18:18 cp 03/26 17:10 Order name: EKG - Nurse/Tech; Complete Time: 18:18 cp 03/26 17:10 Order name: IV Saline Lock; Complete Time: 18:18 cp 03/26 17:10 Order name: Labs collected and sent; Complete Time: 18:18 cp 03/26 17:10 Order name: O2 Per Protocol; Complete Time: 18:18 cp 03/26 17:10 Order name: O2 Sat Monitoring; Complete Time: 18:18 cp EC:58 Rate is 89 beats/min. Rhythm is regular. NV interval is normal. QRS interval is normal. cp QT interval is normal. T waves are Inverted in leads aVL, aVR. Interpreted by me. Reviewed by me. Administered Medications: 18:18 Drug: DuoNeb Nebulize (2.5 mg - 0.5 mg) 3 ml Nebulizer once Route: Nebulizer; cm10 20:38 Follow up: Response: No adverse reaction kj2 18:18 Drug: MethylPrednisoLONE IVP 80 mg IVP once Route: IVP; Site: left antecubital; cm10 20:38 Follow up: Response: No adverse reaction kj2 Disposition Summary: 03/26/24 20:02 Discharge Ordered Notes: Location: Home cp Problem: an acute exacerbation cp Symptoms: have improved cp Condition: Stable cp Diagnosis - COPD/ Chronic obstructive pulmonary disease with (acute) exacerbation cp Followup: cp - With: Private Physician - When: 2 - 3 days - Reason: Recheck today's complaints Discharge Instructions: - Discharge Summary Sheet cp - Chronic Obstructive Pulmonary Disease Exacerbation cp Forms: - Medication Reconciliation Form cp - Antibiotic Education cp - Prescription Opioid Use cp - Patient Portal Instructions cp - Leadership Thank You Letter cp Prescriptions: - Medrol (Gilbert) 4 mg Oral Tablets, Dose Pack - take 1 tablet ORAL route as directed - follow package instructions; 1 packet; cp Refills: 0, Product Selection Permitted Addendum: 03/29/2024 10:03 Co-signature as Attending Physician, William Paez MD I reviewed the patient's care r n provided by the Advanced Practice Provider and agree with the diagnosis and treatment plan. Signatures: Dispatcher [employer] William Steinberg MD MD rn Rivas Vidales PA PA cp Heidi Shea RN RN cm10 Tanisha Russo RN kj2 Corrections: (The following items were deleted from the chart) 03/26 17:11 17:11 BASIC METABOLIC PANEL+C.LAB.BRZ ordered. EDMS EDMS 17:11 17:11 CBC+H.LAB.BRZ ordered. EDMS EDMS 17:11 17:11 HEPATIC FUNCTION+C.LAB.BRZ ordered. EDMS EDMS 17:11 17:11 MAGNESIUM+C.LAB.BRZ ordered. EDMS EDMS 17:11 17:11 PROBNP+C.LAB.BRZ ordered. EDMS EDMS 17:11 17:11 PROTIME (+INR)+COAG.LAB.BRZ ordered. EDMS EDMS 17:11 17:11 Troponin High Sensitivity+C.LAB.BRZ ordered. EDMS EDMS 17:11 17:11 Influenza Screen (A \T\ B)+BA.LAB.BRZ ordered. EDMS EDMS 17:11 17:11 SARS-COV-2 Antigen Rapid+I.LAB.BRZ ordered. EDMS EDMS
[2024-03-26 21:22] VITALS: TEMP 98
[2024-03-26 21:35] VITALS: BP 140/99; O2SAT 98
--- NOTE | 2024-03-30 10:54 | EKG ---
Test Date: 2024-03-26 Test Time: 17:52:06 Character Actress: JACK MEASUREMENT RESULTS: Intervals: Rate: 89 [place]: 122 QRSD: 92 QT: 382 QTc: 464 [place]: P: 83 NJ: 122 QRS: -47 T: 85 INTERPRETIVE STATEMENTS: Normal sinus rhythm Left axis deviation Septal infarct, age undetermined Abnormal ECG Compared to ECG 02/16/2024 16:38:46 No significant changes Electronically Signed On 03-30-24 10:50:34 REFINERY SUPERINTENDENT by Liborio Montes
== END 2024-03-26 20:39 | disposition home or self-care (01) ==
LOC: ER 16:26
DX: J44.1 Chronic obstructive pulmonary disease with (acute) exacerbation (principal); Z11.52 Encounter for screening for COVID-19
CPT/HCPCS: 93005; 85025; 80048; 36415; 83735; 85610; 80076; 84484; 83880; 87804 ×2; 71045; 96374; 99285; 87811; J7613; J7644; J2919

== ENCOUNTER 2024-04-06 00:13 | Inpatient (IN) | payer OTHER ==
[2024-04-06] MEDS ORDERED: CEFTRIAXONE 1000 MG/VIAL ONE (00:47)
[2024-04-06] MEDS ORDERED: IPRATROPIUM BROM 0.5MG/2.5ML ONE (00:48)
[2024-04-06] MEDS ORDERED: ALBUTEROL 2.5 MG/3 ML NEB SOL ONE ×2 (00:48→08:05)
[2024-04-06] MEDS ORDERED: PROMETHAZINE 25 MG TABLET ONE (00:48)
[2024-04-06] MEDS ORDERED: ACETAMINOPHEN 500 MG TAB ONE (00:48)
[2024-04-06] MEDS ORDERED: BENZONATATE 100 MG CAP PO ONE (00:49)
[2024-04-06] MEDS ORDERED: GUAIFENESIN/DM 5 ML UCUP ONE (00:49)
[2024-04-06] MEDS ORDERED: AZITHROMYCIN 500 MG INJ IVPB ONE (00:49)
[2024-04-06] MEDS ORDERED: NA CHLORIDE 0.9% 50 ML ONE (00:50)
[2024-04-06] MEDS ORDERED: NA CHLORIDE 0.9% 1,000 ML ONE ×2 (00:50→08:05)
[2024-04-06] MEDS ORDERED: NA CHLORIDE 0.9% 250 ML ONE (00:50)
[2024-04-06 01:03] LABS: Absolute Lymphocytes (CBC) 0.8 K/uL (0.7-4.9); Absolute Monocytes 0.5 K/uL (0.1-1.3); Absolute Neutrophil 4.3 K/uL (1.8-8.0); Basophils % 0.3 % (0-1.3); Eosinophils % 0.2 % (0-4.4); Hematocrit 40.7 % (36.0-45.0); Hemoglobin 13.5 g/dL (12.0-15.0); Lymphocytes % 13.3 % (15.3-44.8); MCH 31.1 pg (27.0-35.0); MCHC 33.1 g/dL (32.0-36.0); MCV 93.9 fL (80-100); MPV 10.2 fL (7.6-11.3); Monocytes % 9.6 % (3.3-12.3); Neutrophils % 76.6 % (41.7-73.7); Nucleated Red Blood Cells % 0.2 % (0-0); Platelets 202 thou/uL (152-406); RBC Red Blood Cell Count 4.34 M/uL (3.86-4.86); Red Cell Distribution Width 13.8 % (12.1-15.2)
[2024-04-06 01:16] LABS: PT Prothrombin Time 11.1 SECONDS (9.4-12.5); PTT, Activated Partial Thromb 33.8 SECONDS (24.3-36.9); Protime INR 1.06
[2024-04-06 01:16] LABS: Blood O2 Saturation 84.5 % (92-98.5)
[2024-04-06 01:17] LABS: Albumin 3.5 g/dL (3.4-5.0); Anion Gap 10.8 mEq/L (5.0-15.0); Bilirubin Total 0.4 mg/dL (0.2-1.0); Globulin 3.5 g/dL (2.3-3.5); Potassium 3.8 mEq/L (3.5-5.1); Troponin High Sensitivity 5.1 pg/mL (<58.9)
[2024-04-06 01:20] LABS: SARS-CoV-2 Antigen CONTROL BLUE LINE VIS/BG OK; SARS-CoV-2 Antigen Rapid Res Negative (Negative)
[2024-04-06 01:22] LABS: C-Reactive Protein 4.43 mg/L (<3.00)
[2024-04-06] MEDS ORDERED: ONDANSETRON 4 MG/2 ML VIAL ONE (01:29)
[2024-04-06 01:37] LABS: Thyroid Stimulating Hormone 3.79 uIU/mL (0.358-3.740)
[2024-04-06 01:56] LABS: Blood Morphology Comment NOT SEEN (NOT SEEN); Platelet Estimate ADEQ; White Blood Cell Scan OK (OK)
--- NOTE | 2024-04-06 02:16 | ER ---
Nurse's Notes [facility] Name: Gisell Man Age: 68 yrs Sex: Female : 1955 Arrival Date: 04/06/2024 Time: 00:13 Bed 18 Private MD: Diagnosis: COPD/ Chronic obstructive pulmonary disease with (acute) exacerbation Presentation: 04/06 00:16 Chief complaint: Patient states: shortness of breath that has gotten increasing worse. cp4 History of bronchitis. Coronavirus screen: Client denies travel out of the [place] in the last 14 days. At this time, the client does not indicate any symptoms associated with coronavirus-19. Ebola Screen: Patient negative for fever greater than or equal to 101.5 degrees Fahrenheit, and additional compatible Ebola Virus Disease symptoms Patient denies exposure to infectious person. Patient denies travel to an Ebola-affected area in the 21 days before illness onset. No symptoms or risks identified at this time. Initial Sepsis Screen: Does the patient meet any 2 criteria? RR > 20 per min. HR > 90 bpm. Yes Does the patient have a suspected source of infection? No. Patient's initial sepsis screen is negative. If YES to both, name of provider notified: Chivo Contreras MD. Risk Assessment: Do you want to hurt yourself or someone else? Patient reports no desire to harm self or others. Onset of symptoms is unknown. 00:16 Method Of Arrival: EMS: [facility] cp4 00:16 Acuity: TOMMY 3 cp4 Triage Assessment: 00:18 General: Appears in no apparent distress. uncomfortable, Behavior is calm, cooperative, cp4 appropriate for age. Pain: Denies pain. Historical: - Allergies: 00:18 Adhesives; cp4 00:18 Codeine; cp4 00:18 Iodine; cp4 00:18 Doxycycline; cp4 - PMHx: 00:18 bilateral breast cancer; Chronic obstructive lung disease; Endometriosis of vagina; cp4 Hypothyroidism; - PSHx: 00:18 Cholecystectomy; Tonsillectomy; cp4 - Immunization history:: Adult Immunizations up to date. - Infectious Disease History:: Denies. - Social history:: Smoking status: Patient/guardian denies using tobacco, but has a distant history of tobacco abuse. - Family history:: not pertinent. Screenin:28 [facility] ED Fall Risk Assessment (Adult) History of falling in the last 3 months, ay including since admission No falls in past 3 months (0 pts) Confusion or Disorientation No (0 pts) Intoxicated or Sedated No (0 pts) Impaired Gait No (0 pts) Mobility Assist Device Used No (0 pt) Altered Elimination No (0 pt) Score/Fall Risk Level 0 - 2 = Low Risk Oriented to surroundings, Maintained a safe environment, Educated pt \T\ family on fall prevention, incl call for assistance when getting out of bed. 04:27 Abuse screen: Denies threats or abuse. Nutritional screening: No deficits noted. ay Tuberculosis screening: No symptoms or risk factors identified. Assessment: 00:28 General: Appears distressed, uncomfortable, Behavior is cooperative. Neuro: Level of ay Consciousness is awake, alert, obeys commands, Oriented to person, place, time, situation, Speech is normal. Cardiovascular: Capillary refill < 3 seconds Patient's skin is warm and dry. Respiratory: Reports Airway is patent Respiratory pattern is hyperventilation Breath sounds with wheezes bilaterally. GI: Abdomen is flat. : No signs and/or symptoms were reported regarding the genitourinary system. EENT: No signs and/or symptoms were reported regarding the EENT system. 01:00 Reassessment: No changes from previously documented assessment. Patient and/or family ay updated on plan of care and expected duration. Pain level reassessed. 02:00 Reassessment: Patient appears in no apparent distress at this time. Patient states ay feeling better. 03:00 Reassessment: Patient appears in no apparent distress at this time. ay 04:00 Reassessment: Patient appears in no apparent distress at this time. ay Vital Signs: 00:16 BP 173 / 74; Pulse 108; Resp 34; Temp 98.4; Pulse Ox 98% on 4 lpm NC; Weight 40.82 kg; cp4 Height 5 ft. 0 in. ; Pain 0/10; 01:19 BP 161 / 61; Pulse 107; Resp 26; Pulse Ox 98% on 2 lpm NC; ay 01:30 BP 153 / 74; Pulse 97; Resp 25; Pulse Ox 100% ; ay 02:00 BP 135 / 54; Pulse 97; Resp 23; Pulse Ox 100% on 2 lpm NC; ay 02:30 BP 148 / 55; Pulse 102; Resp 21; Pulse Ox 99% on 2 lpm NC; ay 03:00 BP 126 / 53; Pulse 97; Resp 22; Pulse Ox 98% on 2 lpm NC; ay 03:30 BP 122 / 52; Pulse 87; Resp 20; Pulse Ox 97% on 2 lpm NC; ay 04:00 BP 118 / 58; Pulse 83; Resp 19; Pulse Ox 96% on 2 lpm NC; ay 00:16 Body Mass Index 17.58 (40.82 kg, 152.4 cm) cp4 00:16 Pain Scale: Adult cp4 [place] Coma Score: 02:31 Eye Response: spontaneous(4). Motor Response: obeys commands(6). Verbal Response: sp4 oriented(5). Total: 15. ED Course: 00:15 Patient arrived in ED. sp4 00:15 Chivo Contreras MD is Attending Physician. sp4 00:18 Triage completed. cp4 00:18 Arm band placed on right wrist. Patient placed in an exam room, on a stretcher. cp4 00:28 Yas Rodriguez, RN is Primary Nurse. ay 00:28 database admin on. Pulse ox on. NIBP on. Door closed. Noise minimized. Lights dimmed. ay 00:28 Maintain EMS IV. Dressing intact. Good blood return noted. Site clean \T\ dry. Gauge \T\ ay site: 20g L hand. Flushed with 10 mL NS. Oxygen administration via nasal cannula \T\ 2L/min. 00:48 Chest Single View XRAY In Process Unspecified. EDMS 02:03 EKG done, by ED staff, reviewed by Chivo Contreras MD COVID swab sent to lab. Flu ay and/or RSV swab sent to lab. 02:15 Douglas Agustin MD is Hospitalizing Provider. sp4 04:27 Provided Education on: plan of care. ay 06:07 Hospitalizing Provider role handed off by Douglas Agustin MD la1 06:07 Sylvia Mcleod MD is Hospitalizing Provider. la1 Administered Medications: 00:45 Drug: Albuterol Inhalation 2.5 mg Inhalation every 20 minutes x3 Route: Inhalation; ay 00:45 Drug: Ipratropium Inhalation Aerosol 0.5 mg Inhalation once; Every 20 min for a total ay of 3 treatments x3 Route: Inhalation; 01:10 Drug: Albuterol Inhalation 2.5 mg Inhalation every 20 minutes x3 Route: Inhalation; ay 01:10 Drug: Ipratropium Inhalation Aerosol 0.5 mg Inhalation once; Every 20 min for a total ay of 3 treatments x3 Route: Inhalation; 01:20 Drug: Acetaminophen PO 1000 mg PO once Route: PO; ay 02:07 Follow up: Response: No adverse reaction ay 01:20 Drug: Zithromax IVPB 500 mg IVPB once over 1 hrs; mix in 250 mL NS Route: IVPB; Infused ay Over: 1 hrs; Site: left hand; 02:06 Follow up: Response: No adverse reaction ay 01:23 Drug: Dextromethorphan-Guaifenesin PO Liquid 10 mg-100 mg/5 mL 10 ml PO once Route: PO; ay 02:06 Follow up: Response: No adverse reaction ay 01:23 Drug: Rocephin - Rocephin (cefTRIAXone) IVPB 1 grams IVPB once over 30 mins; (mix in 50 ay mL NS) Route: IVPB; Infused Over: 30 mins; Site: left hand; 02:06 Follow up: Response: No adverse reaction ay 04:39 Follow up: IV Status: Completed infusion; IV Intake: 50ml ay 01:23 Drug: Tessalon Perle PO 200 mg PO once Route: PO; ay 02:05 Follow up: Response: No adverse reaction ay 01:23 Drug: Promethazine PO 25 mg PO once Route: PO; ay 02:05 Follow up: Response: No adverse reaction ay 02:05 Follow up: Response: No adverse reaction ay 01:38 Drug: Ondansetron IVP 4 mg IVP once; over 2 minutes Route: IVP; Site: left hand; ay 02:05 Follow up: Response: No adverse reaction ay 01:43 Drug: NS 0.9% IV 1000 ml IV at 125 ml/hr Per protocol; to be given as a bolus over 60 ay minutes Route: IV; Rate: 125 ml/hr; Site: left hand; 02:05 Drug: Albuterol Inhalation 2.5 mg Inhalation every 20 minutes x3 Route: Inhalation; ay 02:06 Follow up: Response: No adverse reaction ay 02:05 Drug: Ipratropium Inhalation Aerosol 0.5 mg Inhalation once; Every 20 min for a total ay of 3 treatments x3 Route: Inhalation; 02:06 Follow up: Response: No adverse reaction ay Medication: 04:27 VIS not applicable for this client. ay Intake: 04:39 IV: 50ml; Total: 50ml. ay Outcome: 02:15 Decision to Hospitalize by Provider. sp4 09:39 Patient left the ED. kc6 Signatures: Dispatcher [employer] EDMS Morgan Landaverde, HIDE INSPECTOR AND SORTER-C HIDE INSPECTOR AND SORTER-Cla1 Jesenia Felix RN RN kc6 Chivo Contreras MD MD sp4 Ree Mason 4 Yas Rodriguez RN RN ay Corrections: (The following items were deleted from the chart) 01:32 01:32 Albuterol Inhalation 2.5 mg Inhalation ay ay
--- NOTE | 2024-04-06 02:16 | EDPHYS ---
Physician Documentation [facility] Name: Gisell Man Age: 68 yrs Sex: Female : 1955 Arrival Date: 04/06/2024 Time: 00:13 Bed 18 Private MD: ED Physician Chivo Contreras HPI: 04/06 00:15 This 68 yrs old Female presents to ER via Unassigned with complaints of sp4 dyspnea , wheezing, cough . 02:31 68-year-old female with past medical history of COPD, bilateral breast cancer, sp4 endometriosis, hypothyroidism presents with acute onset of wheezing, dyspnea, cough, congestion. Patient is presented with EMS.. Historical: - Allergies: 00:18 Adhesives; cp4 00:18 Codeine; cp4 00:18 Iodine; cp4 00:18 Doxycycline; cp4 - PMHx: 00:18 bilateral breast cancer; Chronic obstructive lung disease; Endometriosis of vagina; cp4 Hypothyroidism; - PSHx: 00:18 Cholecystectomy; Tonsillectomy; cp4 - Immunization history:: Adult Immunizations up to date. - Infectious Disease History:: Denies. - Social history:: Smoking status: Patient/guardian denies using tobacco, but has a distant history of tobacco abuse. - Family history:: not pertinent. ROS: 02:31 Constitutional: Negative for fever, chills, and weight loss, positive for dyspnea, sp4 positive wheezing, positive cough, positive congestion 02:31 All other systems are negative, Exam: 02:31 Constitutional: Patient is frail elderly female, ill-appearing, signs of cachexia, sp4 oxygen dependent. Head/Face: Normocephalic, atraumatic. Eyes: Pupils equal round and reactive to light, extra-ocular motions intact. Lids and lashes normal. Conjunctiva and sclera are not injected. Cornea within normal limits. Periorbital areas with no swelling, redness, or edema. ENT: Nares patent. No nasal discharge, no septal abnormalities noted. Tympanic membranes are normal and external auditory canals are clear. Oropharynx with no redness, swelling, or masses, exudates, or evidence of obstruction, uvula midline. Mucous membranes moist. Neck: Trachea midline, no thyromegaly or masses palpated, and no cervical lymphadenopathy. Supple, full range of motion without nuchal rigidity, or vertebral point tenderness. Chest/axilla: Normal chest wall appearance and motion. Nontender with no deformity. No lesions are appreciated. Cardiovascular: Regular rate and rhythm with a normal S1 and S2. No gallops, murmurs, or rubs. Normal PMI, no JVD. No pulse deficits. Respiratory: Lungs have equal breath sounds bilaterally, positive bilateral diffuse expiratory wheezing. Abdomen/GI: Soft, with normal bowel sounds. No distension or tympany. No guarding or rebound. No evidence of tenderness throughout. Back: No spinal tenderness. No costovertebral tenderness. Skin: Warm, dry with normal turgor. Normal color with no rashes, no lesions, and no evidence of cellulitis. MS/ Extremity: Pulses equal, no cyanosis. Neurovascular intact. Full, normal range of motion. Neuro: Awake and alert, GCS 15, oriented to person, place, time, and situation. Cranial nerves II-XII grossly intact. Motor strength 5/5 in all extremities. Sensory grossly intact. Psych: Awake, alert, with orientation to person, place and time. Behavior, mood, and affect are within normal limits 02:31 ECG was reviewed by the Attending Physician. EKG at 0 156 normal sinus rhythm short PA. Prolonged QT. Vital Signs: 00:16 BP 173 / 74; Pulse 108; Resp 34; Temp 98.4; Pulse Ox 98% on 4 lpm NC; Weight 40.82 kg; cp4 Height 5 ft. 0 in. ; Pain 0/10; 01:19 BP 161 / 61; Pulse 107; Resp 26; Pulse Ox 98% on 2 lpm NC; ay 01:30 BP 153 / 74; Pulse 97; Resp 25; Pulse Ox 100% ; ay 02:00 BP 135 / 54; Pulse 97; Resp 23; Pulse Ox 100% on 2 lpm NC; ay 02:30 BP 148 / 55; Pulse 102; Resp 21; Pulse Ox 99% on 2 lpm NC; ay 03:00 BP 126 / 53; Pulse 97; Resp 22; Pulse Ox 98% on 2 lpm NC; ay 03:30 BP 122 / 52; Pulse 87; Resp 20; Pulse Ox 97% on 2 lpm NC; ay 04:00 BP 118 / 58; Pulse 83; Resp 19; Pulse Ox 96% on 2 lpm NC; ay 00:16 Body Mass Index 17.58 (40.82 kg, 152.4 cm) 4 00:16 Pain Scale: Adult cp4 [place] Coma Score: 02:31 Eye Response: spontaneous(4). Motor Response: obeys commands(6). Verbal Response: sp4 oriented(5). Total: 15. MDM: 00:16 Medical Screening Exam initiated sp4 02:12 ED course: CLINICAL HISTORY: Congestion. COMPARISON: XR Chest 06/13/2023. TECHNIQUE: XR sp4 CHEST 1 VIEW 04/06/2024 12:16 AM SANDING MACHINE OPERATOR OR TENDER FINDINGS: Cardiac silhouette is normal in size. Lungs are clear without consolidation, atelectasis, mass or edema. There is no pleural effusion. There is no pneumothorax. There are no acute osseous findings. IMPRESSION: Clear lungs. . 02:34 Data reviewed: vital signs, nurses notes, EMS record, old medical records, lab test sp4 result(s), EKG, radiologic studies. 04/06 00:16 Order name: Blood Culture Adult (2) sp4 04/06 00:16 Order name: CBC with Diff; Complete Time: 02: sp4 04/06 00:16 Order name: CMP; Complete Time: sp4 04/06 00:16 Order name: Lactate w/ 2H reflex if indic.; Complete Time: sp4 04/06 00:16 Order name: Protime (+inr); Complete Time: sp4 04/06 00:16 Order name: Ptt, Activated; Complete Time: sp4 04/06 00:16 Order name: Urinalysis w/ reflexes sp4 04/06 00:16 Order name: ABG; Complete Time: sp4 04/06 00:18 Order name: Troponin High Sensitivity; Complete Time: sp4 04/06 00:18 Order name: Influenza Screen (a \T\ B); Complete Time: : sp4 04/06 00:18 Order name: SARS RAPID; Complete Time: sp4 04/06 00:18 Order name: CRP; Complete Time: 02: sp4 04/06 00:18 Order name: BNP; Complete Time: 02:07 sp4 04/06 00:19 Order name: TSH; Complete Time: 02: sp4 04/06 00:19 Order name: T4 Free; Complete Time: 02:07 sp4 04/06 01:13 Order name: CBC Smear Scan; Complete Time: 02:07 EDMS 04/06 02:14 Order name: Glucose, Ancillary Testing; Complete Time: 02:27 EDMS 04/06 00:16 Order name: Chest Single View XRAY sp4 04/06 00:16 Order name: Accucheck; Complete Time: 02:03 sp4 04/06 00:16 Order name: Cardiac monitoring; Complete Time: 02:03 4 04/06 00:16 Order name: EKG - Nurse/Tech; Complete Time: 02:03 sp4 04/06 00:16 Order name: IV Saline Lock - Large Bore; Complete Time: 02:03 4 04/06 00:16 Order name: Labs collected and sent; Complete Time: 02:04 4 04/06 00:16 Order name: O2 Per Protocol; Complete Time: 02:04 sp4 04/06 00:16 Order name: O2 Sat Monitoring; Complete Time: 02:04 4 04/06 00:16 Order name: Vital Signs; Complete Time: 02:04 sp4 EC:56 Rate is 99 beats/min. Rhythm is regular, Normal Sinus Rhythm. QRS [place] is Normal. PA sp4 interval is shortened. QRS interval is normal. QT interval is prolonged. No Q waves. T waves are Normal. No ST changes noted. Clinical impression: No evidence of ischemia. Interpreted by me. Reviewed by me. Administered Medications: 00:45 Drug: Albuterol Inhalation 2.5 mg Inhalation every 20 minutes x3 Route: Inhalation; ay 00:45 Drug: Ipratropium Inhalation Aerosol 0.5 mg Inhalation once; Every 20 min for a total ay of 3 treatments x3 Route: Inhalation; 01:10 Drug: Albuterol Inhalation 2.5 mg Inhalation every 20 minutes x3 Route: Inhalation; ay 01:10 Drug: Ipratropium Inhalation Aerosol 0.5 mg Inhalation once; Every 20 min for a total ay of 3 treatments x3 Route: Inhalation; 01:20 Drug: Acetaminophen PO 1000 mg PO once Route: PO; ay 02:07 Follow up: Response: No adverse reaction ay 01:20 Drug: Zithromax IVPB 500 mg IVPB once over 1 hrs; mix in 250 mL NS Route: IVPB; Infused ay Over: 1 hrs; Site: left hand; 02:06 Follow up: Response: No adverse reaction ay 01:23 Drug: Dextromethorphan-Guaifenesin PO Liquid 10 mg-100 mg/5 mL 10 ml PO once Route: PO; ay 02:06 Follow up: Response: No adverse reaction ay 01:23 Drug: Rocephin - Rocephin (cefTRIAXone) IVPB 1 grams IVPB once over 30 mins; (mix in 50 ay mL NS) Route: IVPB; Infused Over: 30 mins; Site: left hand; 02:06 Follow up: Response: No adverse reaction ay 04:39 Follow up: IV Status: Completed infusion; IV Intake: 50ml ay 01:23 Drug: Tessalon Perle PO 200 mg PO once Route: PO; ay 02:05 Follow up: Response: No adverse reaction ay 01:23 Drug: Promethazine PO 25 mg PO once Route: PO; ay 02:05 Follow up: Response: No adverse reaction ay 02:05 Follow up: Response: No adverse reaction ay 01:38 Drug: Ondansetron IVP 4 mg IVP once; over 2 minutes Route: IVP; Site: left hand; ay 02:05 Follow up: Response: No adverse reaction ay 01:43 Drug: NS 0.9% IV 1000 ml IV at 125 ml/hr Per protocol; to be given as a bolus over 60 ay minutes Route: IV; Rate: 125 ml/hr; Site: left hand; 02:05 Drug: Albuterol Inhalation 2.5 mg Inhalation every 20 minutes x3 Route: Inhalation; ay 02:06 Follow up: Response: No adverse reaction ay 02:05 Drug: Ipratropium Inhalation Aerosol 0.5 mg Inhalation once; Every 20 min for a total ay of 3 treatments x3 Route: Inhalation; 02:06 Follow up: Response: No adverse reaction ay Disposition Summary: 04/06/24 02:15 Hospitalization Ordered Notes: Hospitalization Status: Inpatient Admission sp4 Condition: Fair sp4 Problem: new sp4 Symptoms: have improved sp4 Bed/Room Type: Standard sp4 Provider: Sylvia Mcleod(04/06/24 06:07) la1 Location: Telemetry/MedSur (Inpatient)(04/06/24 08:55) Room Assignment: [facility](04/06/24 08:55) Diagnosis - COPD/ Chronic obstructive pulmonary disease with (acute) exacerbation sp4 Forms: - Medication Reconciliation Form sp4 - SBAR form sp4 - Leadership Thank You Letter sp4 Signatures: Dispatcher [employer] EDMS Sharron Burgess RN RN ss Morgan Landaverde, ASSISTANT COMMISSIONER-C ASSISTANT COMMISSIONER-Cla1 Valencia Pereira RN RN vc1 Chivo Contreras MD MD sp4 Ree Mason cp4 Yas Rodriguez RN RN ay Corrections: (The following items were deleted from the chart) 00:17 00:17 Arterial Blood Gas+RC.LAB.BRZ ordered. EDMS EDMS 00:18 00:18 Troponin High Sensitivity+C.LAB.BRZ ordered. EDMS EDMS 00:18 00:18 Influenza Screen (A \T\ B)+BA.LAB.BRZ ordered. EDMS EDMS 00:18 00:18 SARS-COV-2 Antigen Rapid+I.LAB.BRZ ordered. EDOH EDMS 03:58 02:15 Telemetry/MedSurg (Inpatient) sp4 vc1 03:58 02:15 sp4 vc1 06:07 02:15 Douglas Agustin sp4 la1 08:55 03:58 [facility] ER HOLD vc1 ss 08:55 03:58 ERHOLD- vc1 ss
--- NOTE | 2024-04-06 05:55 | RAD REPORT ---
CLINICAL HISTORY: Congestion. COMPARISON: XR Chest 06/13/2023. 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 Lungs are clear without consolidation, atelectasis, mass or chava ma. There is no pleural effusion. There is no pneumothorax. There are no acute osseous findings. IMPRESSION: Clear lungs. Electronically signed by: Gil Ford MD 04/06/2024 02:00 AM BLUEPRINT MAKER RP Due to temporary technical issues with the PACS/[employer] reporting system, reports are being philip d by the in-house radiologist without review as a courtesy to ensure prompt reporting the interpreting radiologist is fully responsible for the content of the report. Transcribed Date/Time: 04/06/2024 5:55 AM
[2024-04-06] MEDS ORDERED: MUCINEX DM 12HR.SR TAB PO PRN (07:13)
[2024-04-06] MEDS ORDERED: MAGNESIUM HYDROXIDE 8% 30 ML PO PRN (07:13)
[2024-04-06] MEDS ORDERED: ONDANSETRON 4 MG/2 ML VIAL IV PRN (07:13)
[2024-04-06] MEDS: NA CHLORIDE 0.9% 1,000 ML IV SCH (07:13)
[2024-04-06] MEDS ORDERED: ACETAMINOPHEN 325 MG TABLET PO PRN (07:13)
[2024-04-06] MEDS ORDERED: METHYLPREDNISOLONE 40 MG INJ ONE (08:05)
[2024-04-06] MEDS: METHYLPREDNISOLONE 40 MG INJ IV SCH ×2 (08:32→23:45)
[2024-04-06] MEDS ORDERED: LORazepam 2 MG/ML VIAL ONE (08:48)
[2024-04-06] MEDS: LORazepam 2 MG/ML VIAL IV ONE ×2 (08:52→17:34)
[2024-04-06 17:59] LABS: Urine Bilirubin NEGATIVE (Negative); Urine Blood Negative (Negative); Urine Clarity Clear (Clear); Urine Color Colorless (Yellow); Urine Glucose NEGATIVE (Negative); Urine Ketones NEGATIVE (Negative); Urine Microscopic Reflex YN NO UMIC; Urine Nitrite NEGATIVE (Negative); Urine Protein NEGATIVE (Negative); Urine Urobilinogen Normal (Normal); Urine pH 6.5 (5.0-7.0)
[2024-04-06] MEDS: LORAZEPAM 0.5 MG TABLET PO PRN (22:25)
[2024-04-06] MEDS: ZOLPIDEM TARTRATE 5 MG TABLET PO PRN (22:25)
[2024-04-06] MEDS: BENZONATATE 100 MG CAP PO PRN (22:25)
[2024-04-06] MEDS: HYDRALAZINE HCL 20 MG/ML VIAL IV PRN (22:25)
[2024-04-06] MEDS: ALBUTEROL 2.5 MG/3 ML NEB SOL ONE (22:38)
[2024-04-06] MEDS: IPRATROPIUM BROM 0.5MG/2.5ML ONE (22:38)
[2024-04-06] MEDS: IPRATROPIUM BROM 0.5MG/2.5ML NEB SCH (22:40)
[2024-04-06] MEDS ORDERED: LORazepam 2 MG/ML VIAL IV PRN (23:01)
--- NOTE | 2024-04-06 23:08 | P.PN ---
Date of Service: 04/06/24 68-year-old female with past medical history of COPD, breast cancer and endometriosis who presented because of wheezing and cough with shortness of breath. Patient started on IV steroids as well as as needed albuterol. I was called because patient was complaining of anxiety. On review of record patient recommended to have scheduled DuoNebs. Ativan given. Patient shortness of breath continued to worsen. On evaluation patient is purse lip breathing on 6 Nasal cannula. Chest exam shows marked wheezing more of expiration. No c repitations noted Review of imaging shows normal lung exam earlier with no evidence of pulmonary edema or infiltrate Start DuoNebs given now ABG obtained by me. pH of 7.30, pCO2 of 54 and pO2 of 55. Given history of breast cancer, will obtain CT to rule out PE given significant hypoxemia Continue scheduled DuoNebs Will place on BiPAP Increase steroid dose to 80 every 6 Add guaifenesin Will add empirical antibiotics Ativan as needed for anxiety while on BiPAP May need intubation and vent if worsening symptoms tonight Transferred to ICU
[2024-04-06] MEDS: CEFTRIAXONE 1,000 MG in NA CHLORIDE 0.9% 50 ML IVPB SCH (23:44)
[2024-04-06] MEDS: GUAIFENESIN 600 MG SA TAB PO SCH (23:44)
[2024-04-06] MEDS: DIPHENHYDRAMINE 50 MG/ML VIAL IV ONE (23:45)
[2024-04-06] MEDS: DEXMEDETOMIDINE HCL 200 MCG in NA CHLORIDE 0.9% 98 ML IV SCH (23:46)
[2024-04-06] MEDS: METHYLPREDNISOLONE 125 MG INJ IV ONE (23:46)
[2024-04-07] MEDS ORDERED: ALBUTEROL 2.5 MG/3 ML NEB SOL NEB SCH (01:00)
[2024-04-07] MEDS ORDERED: IPRATROPIUM BROM 0.5MG/2.5ML NEB SCH (01:00)
--- NOTE | 2024-04-07 01:55 | RAD REPORT ---
EXAM: CT Angiography Chest With Intravenous Contrast CLINICAL HISTORY: The patient is 68 years old and is Female; SOB , r/o PE TECHNIQUE: Axial computed tomographic angiography images of the chest with intravenous contrast. Sagittal an d coronal reformatted images were created and reviewed. This CT exam was performed using one or more of the following dose reduction techniques: automated exposure control, adjustment of the mA a nd/or kV according to patient size, and/or use of iterative reconstruction technique. MIP reconstructed images were created and reviewed. COMPARISON: April 01, 2023. FINDINGS: ARTIFACTS: The exam is suboptimal secondary to motion artifact. PULMONARY ARTERIES: There are no obvious filling defects identified within the pulmonary arteries to suggest pulmonary embolism. AORTA: Atherosclerosis of the aorta is present. No thoracic aortic aneurysm. LUNGS: The lungs are hyperinflated. Emphysematous changes is noted. Flattening of hemidiaphragms is present. There is no lobar consolidation. PLEURAL SPACE: Unremarkable. No significant effusion. No pneumothorax. HEART: Unremarkable. No cardiomegaly. No significant pericardial effusion. No evidence of R V dysfunction. BONES/JOINTS: No acute fracture. No dislocation. SOFT TISSUES: Unremarkable. LYMPH NODES: Unremarkable. No enlarged lymph nodes. GALLBLADDER AND BILE DUCTS: Surgical clips are present in the right upper quadrant, consistent wi th previous cholecystectomy. IMPRESSION: No evidence of pulmonary embolism. Given the presence of pulmonary emphysema, an independent risk factor for lung cancer, consider evalu ating the patient for a low-dose CT lung cancer screening program. Electronically signed by: Daphne Tim MD 04/07/2024 01:[address] [facility] Due to temporary technical issues with the PACS/[employer] reporting system, reports are being philip d by the in-house radiologist without review as a courtesy to ensure prompt reporting the interpreting radiologist is fully responsible for the content of the report. Transcribed Date/Time: 04/07/2024 1:55 AM
[2024-04-07] MEDS: ALBUTEROL 2.5 MG/3 ML NEB SOL NEB SCH (02:00)
[2024-04-07 06:04] LABS: Absolute Basophils 0.1 K/uL (0-0.5); Absolute Lymphocytes (CBC) 0.3 K/uL (0.7-4.9); Absolute Monocytes 0.2 K/uL (0.1-1.3); Absolute Neutrophil 7.8 K/uL (1.8-8.0); Basophils % 1.5 % (0-1.3); Eosinophils % 0.1 % (0-4.4); Hematocrit 35.5 % (36.0-45.0); Hemoglobin 11.8 g/dL (12.0-15.0); Lymphocytes % 3.2 % (15.3-44.8); MCH 31.1 pg (27.0-35.0); MCHC 33.4 g/dL (32.0-36.0); MCV 93.1 fL (80-100); MPV 9.6 fL (7.6-11.3); Monocytes % 1.8 % (3.3-12.3); Neutrophils % 93.4 % (41.7-73.7); Platelets 184 thou/uL (152-406); RBC Red Blood Cell Count 3.81 M/uL (3.86-4.86); Red Cell Distribution Width 13.6 % (12.1-15.2)
[2024-04-07 06:20] LABS: Albumin 3.2 g/dL (3.4-5.0); Albumin/Globulin Ratio 1.1 (1.1-1.8); Bilirubin Total 0.3 mg/dL (0.2-1.0); Protein, Total 6.2 g/dL (6.4-8.2)
[2024-04-07] MEDS: ENOXAPARIN 40 MG/0.4 ML SQ SCH (08:58)
[2024-04-07] MEDS: FAMOTIDINE 20 MG TAB PO SCH (09:00)
[2024-04-07 09:57] LABS: Differential Total Cells Count 100; Segmented Neutrophils 93 % (40-80)
[2024-04-07 09:58] LABS: Band Neutrophils 4 % (0-1); Blood Morphology Comment NOT SEEN (NOT SEEN); Lymphocytes 2 % (15-42); Monocytes 1 % (0-10); Platelet Estimate ADEQ
[2024-04-07] MEDS: DEXMEDETOMIDINE HCL 1,000 MCG in NA CHLORIDE 0.9% 490 ML IV SCH (14:46)
[2024-04-07] MEDS: LORazepam 2 MG/ML VIAL IV ONE (17:23)
[2024-04-08] MEDS: LORazepam 2 MG/ML VIAL IV ONE ×2 (05:13→09:30)
[2024-04-08 06:11] LABS: Absolute Lymphocytes (CBC) 0.3 K/uL (0.7-4.9); Absolute Monocytes 0.3 K/uL (0.1-1.3); Basophils % 0.1 % (0-1.3); Hematocrit 32.6 % (36.0-45.0); Hemoglobin 11.1 g/dL (12.0-15.0); Lymphocytes % 5.1 % (15.3-44.8); MCH 31.8 pg (27.0-35.0); MCHC 34.2 g/dL (32.0-36.0); MCV 93.2 fL (80-100); MPV 10.4 fL (7.6-11.3); Monocytes % 4.9 % (3.3-12.3); Neutrophils % 89.9 % (41.7-73.7); Platelets 139 thou/uL (152-406); RBC Red Blood Cell Count 3.49 M/uL (3.86-4.86); Red Cell Distribution Width 13.5 % (12.1-15.2)
[2024-04-08 06:32] LABS: Albumin 2.9 g/dL (3.4-5.0); Albumin/Globulin Ratio 1.1 (1.1-1.8); Anion Gap 10.2 mEq/L (5.0-15.0); Bilirubin Total 0.3 mg/dL (0.2-1.0); Globulin 2.6 g/dL (2.3-3.5); Potassium 4.2 mEq/L (3.5-5.1); Protein, Total 5.5 g/dL (6.4-8.2)
[2024-04-08] MEDS ORDERED: IPRATROPIUM BROM 0.5MG/2.5ML NEB PRN (10:06)
[2024-04-08] MEDS: clonazePAM 0.5 MG TAB PO SCH (11:20)
[2024-04-08] MEDS: IPRATROPIUM BROM 0.5MG/2.5ML NEB SCH (13:52)
[2024-04-08] MEDS: LEVOTHYROXINE SODIUM 100 MCG VIAL IV ONE (14:06)
[2024-04-08] MEDS: ALBUMIN HUMAN 25% 100 ML IV ONE (14:07)
[2024-04-08 16:16] LABS: Arterial Blood Carboxyhemoglob 0.2 % (0-1.5); Blood Gas Oxyhemoglobin 82.4 % (94-97); Blood Gas THB 12.7 g/dl (12-18); Blood O2 Saturation 84.1 % (92-98.5)
--- NOTE | 2024-04-08 23:46 | P.HP ---
Certification for Inpatient Patient admitted to: Inpatient With expected LOS: >2 Midnights Patient will require the following post-hospital care: Other Practitioner: I am a practitioner with admitting privileges, knowledge of patient current condition, hospital course, and medical plan of care. Services: Services provided to patient in accordance with Admission requirements found in Title 42 Section 412.3 of the Code of Federal Regulations Patient History Date of Service: 04/06/24 Reason for admission: Acute respiratory failure History of Present Illness: Patient is a 68-year-old female with advanced COPD who presents hospital with acute respiratory failure. Patient has been clinically declining as patient has significant respiratory distress. Patient was placed on BiPAP support. Clinically, patient appears to be stabilizing. Patient will get weaned off of BiPAP support at this time. Will need to discuss with family regarding long- term prognosis. Patient is very cachectic and emaciated. Patient's long-term prognosis is very poor. We will discuss with family regarding patient's poor prognosis. Will repeat ABGs in a.m.. Continue with current plan of care at this time. Patient also gets really anxious and will continue with anxiolytics as needed. Allergies Iodinated Contrast Media [Iodinated Contrast Media - IV Dye] Allergy (Severe, Verified 04/01/23 22:09) Anaphylaxis iodine Allergy (Severe, Verified 04/01/23 22:20) Anaphylaxis adhesive tape Allergy (Verified 04/01/23 22:19) Itching codeine Allergy (Verified 04/01/23 22:09) Nausea/Vomiting albuterol Adverse Reaction (Verified 04/01/23 22:09) jittery Home Medications: Levalbuterol [Xopenex*] 1.25 mg NEB TID 04/02/23 Thyroid,Pork [[place] Thyroid] 60 mg PO DAILY 04/02/23 Albuterol Inhaler [Ventolin Inhaler*] 2 puff IH Q6H 06/11/23 Acetaminophen [Tylenol] 1,000 mg PO PRN 02/16/24 Lidocaine [Lidocaine Pain Relief] 1 each TP PRN PRN 02/16/24 Melatonin 10 mg PO BEDTIME PRN 02/16/24 - Past Medical/Surgical History Has patient received pneumonia vaccine in the past: Yes Diabetic: No -: Breast Ca -: Left Mast -: Right Mast -: COPD -: Tara -: Tonsillectomy -: Thyroidectomy Psychosocial/ Personal History: Lives alone in [place], has one Son who also lives in [place] - Family History Father Medical History: Lung disease Mother Medical History: Other (see notes) - Social History Smoking Status: Former smoker Alcohol use: No CD- Drugs: No Caffeine use: Yes Review of Systems 10-point ROS is otherwise unremarkable Physical Examination - Vital Signs Temperature: 98.4 F Blood Pressure: 137/59 Pulse: 87 Respirations: 24 Pulse Ox (%): 100 - Physical Exam General: Alert, In no apparent distress, Oriented x2, Moderate distress HEENT: Atraumatic, PERRLA, Mucous membr. moist/pink, EOMI, Sclerae nonicteric Neck: Supple, 2+ carotid pulse no bruit, No LAD, Without JVD or thyroid abnormality Respiratory: Diminished, Expiratory wheezes Cardiovascular: Regular rate/rhythm, Normal S1 S2, No murmurs Gastrointestinal: Normal bowel sounds, Soft and benign, Non-distended, No tenderness Musculoskeletal: No clubbing, No swelling, No tenderness Integumentary: No rashes Neurological: Abnormal gait, Abnormal speech, Abnormal strength Lymphatics: No axilla or inguinal lymphadenopathy Assessment & Plan - Problems (Diagnosis) (1) Acute hypoxic respiratory failure Current Visit: No Status: Acute (2) COPD with acute exacerbation Current Visit: No Status: Acute (3) Dyspnea Onset Date: 11/23/14 Current Visit: No Status: Acute (4) Impaired mobility Current Visit: No Status: Acute (5) Moderate protein-calorie malnutrition Current Visit: No Status: Acute (6) Lumbar compression fracture Current Visit: No Status: Chronic Qualifiers: Encounter type: subsequent encounter Lumbar vertebra fracture level: L4 - Plan Plan: 1. Acute hypoxic respiratory failure; continue with BiPAP support. Continue with nebs, steroids, and antibiotics. Repeat ABGs in a.m.. 2. Hypercapnic and hypoxic respiratory failure; please see as above. 3. Acute COPD exacerbation; continue with nebs, steroids, antibiotics 4. Severe protein calorie malnutrition; long-term prognosis is poor. Continued to try to provide nutritional support. Speech therapy consultation. 5. History of breast CA; Will patient is in remission from the breast cancer. However, patient is cachectic and emaciated. Discharge Plan: Home Plan to discharge in: Greater than 2 days - Advance Directives Does patient have a Living Will: Yes Does patient have a Durable POA for Healthcare: Yes - Code Status/Comfort Care Code Status Assessed: Yes Code Status: Full Code Critical Care: Yes Time Spent Managing PTS Care (In Minutes): 45
--- NOTE | 2024-04-08 23:58 | P.PN ---
Subjective Date of Service: 04/07/24 Patient continues to decline. Patient moved to the ICU for closer monitoring. ABGs revealed hypercapnic respiratory failure. Repeat ABGs have shown some improvement. Will discuss with family regarding prognosis. Review of Systems 10-point ROS is otherwise unremarkable Physical Examination - Vital Signs Temperature: 98.4 F Blood Pressure: 137/59 Pulse: 87 Respirations: 24 Pulse Ox (%): 100 - Physical Exam General: Alert, In no apparent distress, Oriented x1, Cachectic, Demented, Moderate distress HEENT: Atraumatic, PERRLA, EOMI Neck: Supple, JVD not distended Respiratory: Diminished, Expiratory wheezes Cardiovascular: Regular rate/rhythm, Normal S1 S2, No murmurs Gastrointestinal: Normal bowel sounds, Soft and benign, Non-distended, No t enderness Musculoskeletal: No clubbing, No swelling, No tenderness Integumentary: No rashes Neurological: Sensation intact, Cranial nerves 3-12 intact Lymphatics: No axilla or inguinal lymphadenopathy - Studies Medications List Reviewed: Yes Assessment & Plan - Problems (Diagnosis) (1) Acute hypoxic respiratory failure Current Visit: No Status: Acute (2) COPD with acute exacerbation Current Visit: No Status: Acute (3) Dyspnea Onset Date: 11/23/14 Current Visit: No Status: Acute (4) Impaired mobility Current Visit: No Status: Acute (5) Moderate protein-calorie malnutrition Current Visit: No Status: Acute (6) Lumbar compression fracture Current Visit: No Status: Chronic Qualifiers: Encounter type: subsequent encounter Lumbar vertebra fracture level: L4 - Plan Plan: Continue with plan of care as mentioned below: 1. Acute hypoxic respiratory failure; continue with BiPAP support. Plan is to wean off of BiPAP. Continue with nebs, steroids, and antibiotics. Repeat ABGs 2. Hypercapnic and hypoxic respiratory failure; please see as above. Continue with BiPAP support. Place patient on nasal cannula and will monitor oxygenation. 3. Acute COPD exacerbation; continue with nebs, steroids, antibiotics 4. Severe protein calorie malnutrition; long-term prognosis is poor. Continued to try to provide nutritional support. Speech therapy consultation. 5. History of breast CA; patient is in remission from the breast cancer. However, patient is cachectic and emaciated. Most likely related to advanced COPD. Prognosis remains poor. Discharge Plan: Other Plan to discharge in: 48 Hours - Advance Directives Does patient have a Living Will: Yes Does patient have a Durable POA for Healthcare: Yes - Code Status/Comfort Care Code Status: Full Code Comfort Measures: Hospice Care Critical Care: Yes Time Spent Managing PTS Care (In Minutes): 45
--- NOTE | 2024-04-09 00:06 | P.PN ---
Date of Service: 04/08/24 Subjective Patient continues to decline. Spoke with family regarding prognosis. They are going to contemplate palliative care. This patient's son is medical power of consumer attorney. Patient is currently significantly hypercapnic. Will repeat ABGs. patient has developed an abrasion on the nasal septum. Will try to keep BiPAP also with this can heal. However, patient is so weak that she comes hypercapnic whenever we removed the BiPAP which leads her to becoming lethargic and bradycardic. Prognosis remains poor. Physical Examination - Vital Signs Reviewed - Physical Exam General: Alert, In no apparent distress, Oriented x1, Cachectic, Demented, Moderate distress Respiratory: Diminished, Expiratory wheezes Cardiovascular: Regular rate/rhythm, Normal S1 S2, No murmurs Gastrointestinal: Normal bowel sounds, Soft and benign, Non-distended, No tenderness Musculoskeletal: No clubbing, No swelling, No tenderness Neurological: No focal deficits Assessment & Plan - Problems (Diagnosis) (1) Acute hypoxic respiratory failure Current Visit: No Status: Acute (2) COPD with acute exacerbation Current Visit: No Status: Acute (3) Dyspnea Onset Date: 11/23/14 Current Visit: No Status: Acute (4) Impaired mobility Current Visit: No Status: Acute (5) Moderate protein-calorie malnutrition Current Visit: No Status: Acute (6) Lumbar compression fracture Current Visit: No Status: Chronic Qualifiers: Encounter type: subsequent encounter Lumbar vertebra fracture level: L4 - Plan Plan: Continue with plan of care as mentioned below: 1. Acute hypoxic respiratory failure; continue with BiPAP support. Unfortunately, unlikely to survive as whenever we remove BiPAP support patient becomes hypoxic and hypercapnic with bradycardia. Continue with nebs, steroids, and antibiotics. Repeat ABGs. Spoke with patient's son who is her medical power of consumer attorney regarding her prognosis which is poor. They are co ntemplating hospice care. 2. Hypercapnic and hypoxic respiratory failure; please see as above. Continue with BiPAP support. 3. Acute COPD exacerbation; continue with nebs, steroids, antibiotics 4. Severe protein calorie malnutrition; long-term prognosis is poor. Continued to try to provide nutritional support. however, patient not really eating much of anything. Spoke with family regarding PEG tube placement. However, in light of her poor prognosis they want away before a PEG tube is placed. They are contemplating palliative care. 5. History of breast CA; patient is in remission from the breast cancer. However, patient is cachectic and emaciated. Most likely related to advanced COPD. Prognosis remains poor. Discharge Plan: Other Plan to discharge in: 48 Hours - Advance Directives Does patient have a Living Will: Yes Does patient have a Durable POA for Healthcare: Yes - Code Status/Comfort Care Code Status: Full Code Comfort Measures: Hospice Care Critical Care: Yes Time Spent Managing PTS Care (In Minutes): 45
[2024-04-09] MEDS: LEVOTHYROXINE SOD 0.05 MG TABLET PO SCH (04:23)
[2024-04-09 04:47] LABS: Absolute Lymphocytes (CBC) 0.1 K/uL (0.7-4.9); Absolute Monocytes 0.3 K/uL (0.1-1.3); Absolute Neutrophil 8.7 K/uL (1.8-8.0); Basophils % 0.3 % (0-1.3); Hematocrit 31.7 % (36.0-45.0); Hemoglobin 10.6 g/dL (12.0-15.0); Lymphocytes % 1.2 % (15.3-44.8); MCH 31.4 pg (27.0-35.0); MCHC 33.4 g/dL (32.0-36.0); MCV 94.1 fL (80-100); MPV 10.6 fL (7.6-11.3); Monocytes % 3.4 % (3.3-12.3); Nucleated Red Blood Cells % 0.1 % (0-0); Platelets 131 thou/uL (152-406); RBC Red Blood Cell Count 3.37 M/uL (3.86-4.86); Red Cell Distribution Width 13.7 % (12.1-15.2)
[2024-04-09 04:53] LABS: Neutrophils % 95.1 % (41.7-73.7)
[2024-04-09 05:04] LABS: Albumin/Globulin Ratio 1.2 (1.1-1.8); Anion Gap 8.4 mEq/L (5.0-15.0); Bilirubin Total 0.3 mg/dL (0.2-1.0); Globulin 2.5 g/dL (2.3-3.5); Magnesium 2.6 mg/dL (1.6-2.4); Potassium 4.4 mEq/L (3.5-5.1); Protein, Total 5.5 g/dL (6.4-8.2)
[2024-04-09 05:35] VITALS: BMI 17.0
[2024-04-09 06:24] LABS: Arterial Blood Carboxyhemoglob 0.5 % (0-1.5); Blood Gas Oxyhemoglobin 96.2 % (94-97); Blood Gas THB 11.1 g/dl (12-18); Blood O2 Saturation 98.8 % (92-98.5)
--- NOTE | 2024-04-09 07:11 | RAD REPORT ---
Procedure: Chest Single View HISTORY: Cough COMPARISON: April 07, 2024 FINDINGS: The lungs appear clear of acute infiltrate. Marked COPD No significant pleural effusion noted. The heart is normal size. IMPRESSION: No acute abnormality is displayed.
[2024-04-09 08:50] VITALS: TEMP 97.6
[2024-04-09 09:35] VITALS: O2SAT 100
--- NOTE | 2024-04-09 13:05 | EKG ---
Test Date: 2024-04-06 Test Time: 01:56:23 Diamond Cleaner: ANDRES MEASUREMENT RESULTS: Intervals: Rate: 99 KS: 106 QRSD: 94 QT: 530 QTc: 680 [place]: P: 69 KS: 106 QRS: -61 T: 77 INTERPRETIVE STATEMENTS: Sinus rhythm with short KS Left anterior fascicular block Nonspecific ST and T wave abnormality Prolonged QT Abnormal ECG Compared to ECG 03/26/2024 17:52:06 Short KS interval now present Left anterior fascicular block now present ST (T wave) deviation now present Prolonged QT interval now present Left-axis deviation no longer present Myocardial infarct finding no longer present Electronically Signed On 04-09-24 13:00:31 [employer] by Liborio Montes
[2024-04-09 17:17] VITALS: BP 115/49
--- NOTE | 2024-04-09 17:56 | P.DS ---
Discharge Date: 04/09/24 Disposition: HOSPICE-MEDICAL FACILITY Discharge Condition: SERIOUS Reason for Admission: Acute respiratory failure - Problems (1) Acute hypoxic respiratory failure Current Visit: No Status: Acute (2) COPD with acute exacerbation Current Visit: No Status: Acute (3) Dyspnea Onset Date: 11/23/14 Current Visit: No Status: Acute (4) Impaired mobility Current Visit: No Status: Acute (5) Moderate protein-calorie malnutrition Current Visit: No Status: Acute (6) Lumbar compression fracture Current Visit: No Status: Chronic Qualifiers: Encounter type: subsequent encounter Lumbar vertebra fracture level: L4 Brief History of Present Illness: Patient is a 68-year-old female with advanced COPD who presents hospital with acute respiratory failure. Patient has been clinically declining as patient has significant respiratory distress. Patient was placed on BiPAP support. Clinically, patient appears to be stabilizing. Patient will get weaned off of BiPAP support at this time. Will need to discuss with family regarding long- term prognosis. Patient is very cachectic and emaciated. Patient's long-term prognosis is very poor. We will discuss with family regarding patient's poor prognosis. Will repeat ABGs in a.m.. Continue with current plan of care at this time. Patient also gets really anxious and will continue with anxiolytics as needed. Hospital Course: Patient's clinical condition continues to decline. Patient remained hypercapnic and hypoxic. Decision was made to proceed with comfort measures after prolonged discussion with family. Patient was made a do not attempt resuscitation. Getting get patient established with inpatient hospice. Patient will be transferred to a private room where family can be with patient. Vital Signs/Physical Exam: Temp Pulse Resp BP Pulse Ox 97.6 F 126 H 22 H 115/49 L 92 04/09/24 12:00 04/09/24 17:02 04/09/24 17:00 04/09/24 17:00 04/09/24 17:02 General: Unresponsive Laboratory Data at Discharge: WBC Cancelled 04/09/24 05:00 Hgb Cancelled 04/09/24 05:00 Hct Cancelled 04/09/24 05:00 Plt Count Cancelled 04/09/24 05:00 PT 11.1 SECONDS (9.4-12.5) 04/06/24 00:28 INR 1.06 04/06/24 00:28 APTT 33.8 SECONDS (24.3-36.9) 04/06/24 00:28 Sodium Cancelled 04/09/24 05:00 Potassium Cancelled 04/09/24 05:00 BUN Cancelled 04/09/24 05:00 Creatinine Cancelled 04/09/24 05:00 Glucose Cancelled 04/09/24 05:00 Magnesium 2.6 mg/dL (1.6-2.4) H 04/09/24 04:30 Total Bilirubin Cancelled 04/09/24 05:00 AST Cancelled 04/09/24 05:00 ALT Cancelled 04/09/24 05:00 Alkaline Phosphatase Cancelled 04/09/24 05:00 Home Medications: Levalbuterol [Xopenex*] 1.25 mg NEB TID 04/02/23 Thyroid,Pork [[place] Thyroid] 60 mg PO DAILY 04/02/23 Albuterol Inhaler [Ventolin Inhaler*] 2 puff IH Q6H 06/11/23 Acetaminophen [Tylenol] 1,000 mg PO PRN 02/16/24 Lidocaine [Lidocaine Pain Relief] 1 each TP PRN PRN 02/16/24 Melatonin 10 mg PO BEDTIME PRN 02/16/24 Physician Discharge Instructions: DC to inpatient hospice Diet: Comfort Activity: Fall precautions Followup: Douglas Agustin MD [Primary Care Provider] - Time spent managing pt's care (in minutes): 25
[2024-04-09] MEDS ORDERED: ENSURE ENLIVE 237 ML CAN PO SCH (21:00)
== END 2024-04-09 18:03 | disposition hospice, inpatient (51) | DRG 189 ==
LOC: ER 00:13 → ERHOLD 03:53 → 4TH 09:02 → 3RD-ICU 23:28
PROVIDERS: ADMIT Internal Medicine; ATTEND Hospitalist
PROC: 4A033R1 Measurement of Arterial Saturation, Peripheral, Percutaneous Approach (ICD-10-PCS; principal; 2024-04-06)
PROC: 5A09457 Assistance with Respiratory Ventilation, 24-96 Consecutive Hours, Continuous Positive Airway Pressure (ICD-10-PCS; 2024-04-06)
DX: J96.01 Acute respiratory failure with hypoxia (principal); R65.11 Systemic inflammatory response syndrome (SIRS) of non-infectious origin with acute organ dysfunction; E43 Unspecified severe protein-calorie malnutrition; J44.1 Chronic obstructive pulmonary disease with (acute) exacerbation; R64 Cachexia; Z68.1 Body mass index [BMI] 19.9 or less, adult; F03.94 Unspecified dementia, unspecified severity, with anxiety; J96.02 Acute respiratory failure with hypercapnia; E03.9 Hypothyroidism, unspecified; L89.892 Pressure ulcer of other site, stage 2; S32.049G Unspecified fracture of fourth lumbar vertebra, subsequent encounter for fracture with delayed healing; Z60.2 Problems related to living alone; Z85.3 Personal history of malignant neoplasm of breast; Z88.5 Allergy status to narcotic agent; Z88.1 Allergy status to other antibiotic agents; Z88.8 Allergy status to other drugs, medicaments and biological substances; Z11.52 Encounter for screening for COVID-19; Z90.49 Acquired absence of other specified parts of digestive tract; Z87.891 Personal history of nicotine dependence; Z90.13 Acquired absence of bilateral breasts and nipples; Z79.899 Other long term (current) drug therapy
CPT/HCPCS: 36415; 36600; 71045; 71275; 80053; 81003; 82805; 82947; 83605; 83735; 83880; 84439; 84443; 84484; 85025; 85610; 85730; 86140; 87040; 87804; 87811; 93005; 94660; 96365; 96366; 96375; 99285; J0360; J0696; J1200; J1650; J2405; J2919; J7030; J7050; J7613; J7644; P9047; Q0169; Q9967

== ENCOUNTER 2024-04-09 18:02 | Inpatient (IN) | payer OTHER ==
[2024-04-09 18:17] VITALS: BMI 16.9
[2024-04-09] MEDS ORDERED: HYDROMORPHONE HCL 2 MG/ML inj IM PRN (18:19)
[2024-04-09] MEDS ORDERED: ACETAMINOPHEN 650MG/RECT SUPP PR PRN (18:27)
[2024-04-09] MEDS ORDERED: BISACODYL 10 MG RECTAL SUPP PR PRN (18:30)
[2024-04-09] MEDS: SCOPOLAMINE HYDROBROMIDE PATCH TD SCH (19:25)
[2024-04-09] MEDS: LORazepam 2 MG/ML VIAL IV PRN (19:25)
[2024-04-09] MEDS: HYDROMORPHONE HCL 2 MG/ML inj IV PRN (19:30)
[2024-04-10 07:09] VITALS: O2SAT 100
[2024-04-10 09:06] VITALS: TEMP 96.2
--- NOTE | 2024-04-10 09:37 | P.HP ---
Certification for Inpatient Patient admitted to: Inpatient With expected LOS: >2 Midnights Patient will require the following post-hospital care: Hospice Practitioner: I am a practitioner with admitting privileges, knowledge of patient current condition, hospital course, and medical plan of care. Services: Services provided to patient in accordance with Admission requirements found in Title 42 Section 412.3 of the Code of Federal Regulations Patient History Date of Service: 04/10/24 Reason for admission: HOSPICE CARE History of Present Illness: Patient is a 68-year-old female with advanced COPD who presents hospital with acute respiratory failure. Patient has been clinically declining as patient has significant respiratory distress. Patient was placed on BiPAP support. Clinically, patient appears to be stabilizing. Patient will get weaned off of BiPAP support at this time. Will need to discuss with family regarding long- term prognosis. Patient is very cachectic and emaciated. Patient's long-term prognosis is very poor. We will discuss with family regarding patient's poor prognosis. Will repeat ABGs in a.m.. Continue with current plan of care at this time. Patient also gets really anxious and will continue with anxiolytics as needed. Patient's clinical condition continues to decline. Patient remained hypercapnic and hypoxic. Decision was made to proceed with comfort measures after prolonged discussion with family. Patient was made a do not attempt resuscitation. Getting get patient established with inpatient hospice. Patient will be transferred to a private room where family can be with patient. Allergies Iodinated Contrast Media [Iodinated Contrast Media - IV Dye] Allergy (Severe, Verified 04/01/23 22:09) Anaphylaxis iodine Allergy (Severe, Verified 04/01/23 22:20) Anaphylaxis adhesive tape Allergy (Verified 04/01/23 22:19) Itching codeine Allergy (Verified 04/01/23 22:09) Nausea/Vomiting albuterol Adverse Reaction (Verified 04/01/23 22:09) jittery Home Medications: Levalbuterol [Xopenex*] 1.25 mg NEB TID 04/02/23 Thyroid,Pork [[place] Thyroid] 60 mg PO DAILY 04/02/23 Albuterol Inhaler [Ventolin Inhaler*] 2 puff IH Q6H 06/11/23 Acetaminophen [Tylenol] 1,000 mg PO PRN 02/16/24 Lidocaine [Lidocaine Pain Relief] 1 each TP PRN PRN 02/16/24 Melatonin 10 mg PO BEDTIME PRN 02/16/24 - Past Medical/Surgical History Has patient received pneumonia vaccine in the past: No Diabetic: No -: Breast Ca -: Left Mast -: Right Mast -: COPD -: Tara -: Tonsillectomy -: Thyroidectomy Psychosocial/ Personal History: Lives alone in [place], has one Son who also lives in [place] - Family History Father Medical History: Lung disease Mother Medical History: Other (see notes) - Social History Smoking Status: Current every day smoker Alcohol use: No CD- Drugs: No Caffeine use: Yes Review of Systems 10-point ROS is otherwise unremarkable Physical Examination - Vital Signs Temperature: 96.2 F Blood Pressure: 81/33 Pulse: 96 Respirations: 14 Pulse Ox (%): 88 - Physical Exam General: Confused HEENT: Atraumatic, PERRLA, Mucous membr. moist/pink, EOMI, Sclerae nonicteric Neck: Supple, 2+ carotid pulse no bruit, No LAD, Without JVD or thyroid abnormality Respiratory: Clear to auscultation bilaterally, Normal air movement Cardiovascular: Regular rate/rhythm, Normal S1 S2, No murmurs Gastrointestinal: Normal bowel sounds, Soft and benign, Non-distended, No tenderness Musculoskeletal: No clubbing, No swelling, No tenderness Integumentary: No rashes Neurological: Normal gait, Normal speech, Normal strength at 5/5 x4 extr, Normal tone, Sensation intact, Cranial nerves 3-12 intact, Normal affect Lymphatics: No axilla or inguinal lymphadenopathy Assessment & Plan - Problems (Diagnosis) (1) Respiratory failure Current Visit: Yes Status: Acute (2) Acute hypoxic respiratory failure Current Visit: No Status: Acute (3) Dyspnea Onset Date: 11/23/14 Current Visit: No Status: Acute (4) COPD (chronic obstructive pulmonary disease) Current Visit: No Status: Chronic - Plan Plan: 1. Palliative care 2. Comfort measures 3. Minimal O2 as needed 4. Morphine and Ativan as needed Discharge Plan: Other Plan to discharge in: Greater than 2 days - Advance Directives Does patient have a Living Will: Yes Does patient have a Durable POA for Healthcare: Yes - Code Status/Comfort Care Code Status Assessed: Yes Code Status: Do Not Attempt Resuscitat Critical Care: No Time Spent Managing PTS Care (In Minutes): 40
[2024-04-10 14:49] VITALS: BP 49/21
== END 2024-04-10 16:31 | disposition expired | DRG 951 ==
LOC: 3RD-ICU 18:02 → UNDOADMIN 18:02
PROVIDERS: ADMIT Internal Medicine; ATTEND Internal Medicine
DX: Z51.5 Encounter for palliative care (principal)
CPT/HCPCS: J1171